=== PATIENT | female | born 1945 | race Caucasian/White ===

== ENCOUNTER 2018-08-04 11:54 | Emergency (ER) | payer BC, OTHER ==
--- OUTSIDE RECORDS SUMMARY | 2018-08-04 11:57 | XMS REPORT | Clinical Summary ---
:1945 Author Organization [facility] Address [address] [place] [address] Care Team Providers Name Role Phone Nael Williamson MD Primary Care Provider Allergies Active Allergy Reactions Severity Noted Date Comments Codeine Itching Low 08/10/2017 Propoxyphene Napsylate 08/01/2017 Medications Medication Sig Dispensed Refills Start Date End Date Status atorvastatin (LIPITOR) 0 06/07/2017 Active 10 MG tablet amitriptyline (ELAVIL) 100 mg 0 07/08/2017 Active 50 MG tablet nightly. ONETOUCH ULTRA TEST 0 05/24/2017 Active strip test strips colchicine 0.6 mg tablet 0 06/22/2017 Active hydroxychloroquine Take 200 mg 0 07/27/2017 Active (PLAQUENIL) 200 mg by mouth 2 tablet (two) times a day. SYNTHROID 50 mcg tablet 0 06/19/2017 Active VICTOZA 3-KJ 0.6 mg/0.1 0 05/22/2017 Active mL (18 mg/3 mL) pen injector losartan (COZAAR) 50 MG 0 06/19/2017 Active tablet metFORMIN XR 0 06/19/2017 Active (GLUCOPHAGE-XR) 500 mg 24 hr tablet BD ULTRA-FINE VERN PEN 0 05/23/2017 Active NEEDLES 32 gauge x 5/32" needle valACYclovir (VALTREX) 0 06/02/2017 Active 1000 MG tablet aspirin (ECOTRIN) 81 MG Take 81 mg 0 Active enteric coated tablet by mouth daily. MULTIVIT-MINERALS/FERROU Take by 0 Active S FUM (MULTI VITAMIN mouth. ORAL) LACTOBACILLUS Take by 0 Active ACIDOPHILUS (PROBIOTIC mouth. ORAL) clopidogrel (PLAVIX) 75 Take 1 90 tablet 3 03/06/2018 Active mg tablet tablet (75 9 mg total) by mouth daily. metoprolol tartrate Take 1 90 tablet 0 07/18/2018 Active (LOPRESSOR) 50 mg tablet tablet (50 mg total) by mouth 2 (two) times a day. metoprolol tartrate Take 50 mg 0 Discontinued (LOPRESSOR) 50 mg tablet by mouth 2 9 (two) times a day. 1/2 TAB TWICE DAILY clopidogrel (PLAVIX) 75 Take 1 30 tablet 11 08/01/2017 Discontinued mg tablet tablet (75 8 mg total) by mouth daily. clopidogrel (PLAVIX) 75 Take 1 90 tablet 3 08/01/2017 Discontinued mg tablet tablet (75 8 mg total) by mouth daily. clopidogrel (PLAVIX) 75 Take 1 90 tablet 3 10/31/2017 Discontinued mg tablet tablet (75 8 mg total) by mouth daily. clopidogrel (PLAVIX) 75 Take 1 90 tablet 3 11/28/2017 Discontinued mg tablet tablet (75 8 mg total) by mouth daily. metoprolol tartrate Take 50 mg 0 01/14/2017 Discontinued (LOPRESSOR) 50 mg tablet by mouth 2 9 (two) times a day. 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 Overview: Added automatically from request for surgery [id number] CAD in soboba artery 08/01/2017 Essential hypertension 08/01/2017 Stented coronary artery 08/01/2017 Encounters Date Type Specialty Care Team Description 07/18/2018 Telephone Cardiology Luis Gaytan MA Hypertension 07/18/2018 Orders Only Cardiology Luis Gaytan MA 03/06/2018 Office Visit Cardiology Paxton Meneses Stented coronary artery ( Primary Dx); MD Simone Coronary artery disease involving soboba coronary artery of soboba heart without angina pectoris 12/19/2017 Office Visit Orthopedic Surgery Ronak Barrios Other specified rheumatoid arthritis, right wrist (Primary Dx); Diogo ULRICH MD 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 12/18/2017 Abstract Orthopedic Surgery Ronak Barrios III, MD 11/28/2017 Refill Cardiology Vineet, Med Refill CookieRACHEL 10/31/2017 Refill Cardiology Vineet, Med Refill CookieRACHEL 08/29/2017 Office Visit Cardiology Paxton Meneses CAD in soboba artery ( Primary Dx); MD Simone Stented coronary artery 08/10/2017 Surgery Procedural Paxton Meneses Cv pci [[id number] Cardiology MD Simone (CPT)] 08/10/2017 - Hospital Encounter Cardiology Paxton Meneses Coronary artery disease involving soboba coronary artery of soboba heart without angina pectoris ; 08/11/2017 MD Simone Essential hypertension; Stented coronary artery 08/07/2017 Orders Only Cardiology Luis Gaytan MA Coronary artery disease involving soboba coronary artery of soboba heart without angina pectoris ( Primary Dx); Essential hypertension; Stented coronary artery after 08/03/2017 Family History Medical History Relation Name Comments Hearing loss Brother Leukemia Father COPD Mother Stroke Mother Hyperlipidemia Sister Hypertension Sister Stroke Sister Relation Name Status Comments Brother Father Mother Sister Alive Social History Tobacco Use Types Packs/Day Years Used Date Never Smoker Smokeless Tobacco: Never Used Alcohol Use Drinks/Week oz/Week Comments No Sex Assigned at Date Recorded Not on file Job Start Date Occupation Industry Not on file Not on file Not on file Travel History Travel Start Travel End No recent travel history available. Last Filed Vital Signs Vital Sign Reading Time Taken Blood Pressure 130/58 03/06/2018 9:56 AM CDT Pulse 87 03/06/2018 9:56 AM CDT Temperature 35.9 C (96.7 F) 08/11/2017 7:25 AM [employer] Respiratory Rate 20 08/11/2017 7:25 AM [employer]OP[employer]IST Oxygen Saturation 100% 08/11/2017 2:57 PM [employer]IST Inhaled Oxygen Concentration - - Weight 79.8 kg (176 lb) 03/06/2018 9:56 AM CDT Height 165.1 cm (5' 5") 03/06/2018 9:56 AM CDT Body Mass Index 29.29 03/06/2018 9:56 AM CDT Plan of Treatment Date Type Specialty Care Team Description 03/05/2019 Office Visit Cardiology Paxton Meneses MD [address] [facility] [address] [place] [id number] Health Maintenance Due Date Last Done Comments BREAST CANCER SCREENING 1995 COLON CANCER SCREENING 1995 SHINGLES VACCINES (1 of 2) 1995 PNEUMOCOCCAL POLYSACCHARIDE VACCINE AGE 65 AND OVER 2010 INFLUENZA VACCINE 01/24/2018 PNEUMOCOCCAL-13 Completed 01/14/2017 Implants Implanted Type Area Core Finisher Device Shelf Model / Identifier Expiration Serial / Date Lot Stent Coronary Syst Synergy (Mr) 3.50mm X 12mm - [id number] Coronary N/A: BSC 04/21/2018 [id number] / Implanted: 08/10/2017 (Quantity not on file) Stents N/A INTERVENTIONAL / CARDIOLOGY [id number] Procedures Procedure Name Priority Date/Time Associated Comments Diagnosis XR WRIST 3VW BILATERAL Routine 12/19/2017 9:27 Pain in both wrists Results for this AM CDT procedure are in the results section. POC GLUCOSE Routine 08/11/2017 7:26 Results for this AM [employer]IST procedure are in the results section. ZZESTIMATED GFR Routine 08/11/2017 4:40 Results for this AM [employer]IST procedure are in the results section. LIPID PANEL Routine 08/11/2017 4:40 Results for this AM [employer]IST procedure are in the results section. HC COMPLETE BLD COUNT Routine 08/11/2017 4:40 Results for this W/AUTO DIFF AM [employer] procedure are in the results section. BASIC METABOLIC PANEL Routine 08/11/2017 4:40 Results for this AM [employer] procedure are in the results section. POC GLUCOSE Routine 08/10/2017 4:22 Results for this PM [employer] procedure are in the results section. POC GLUCOSE Routine 08/10/2017 12:25 Results for this PM [employer]IST procedure are in the results section. ECG 12-LEAD STAT 08/10/2017 10:37 Results for this AM [employer]IST procedure are in the results section. POC GLUCOSE Routine 08/10/2017 9:09 Results for this AM [employer]IST procedure are in the results section. CV PCI PERCUTANEOUS Routine 08/10/2017 8:43 Essential Results for this CARDIAC ANGIOPLASTY AM [employer] hypertension procedure are in Stented coronary the results artery section. Coronary artery disease involving soboba coronary artery of soboba heart without angina pectoris POC ACT Routine 08/10/2017 8:13 Results for this AM [employer]IST procedure are in the results section. ZZESTIMATED GFR Routine 08/10/2017 6:15 Results for this AM [employer]OP[employer] SPECIALIST procedure are in the results section. BASIC METABOLIC PANEL Routine 08/10/2017 6:15 Results for this AM [employer] SPECIALIST procedure are in the results section. POC GLUCOSE Routine 08/10/2017 6:14 Results for this AM [employer] procedure are in the results section. PT AND PTT Routine 08/07/2017 4:25 Coronary artery Results for this PM [employer]IST disease involving procedure are in soboba coronary the results artery of soboba section. heart without angina pectoris Essential hypertension Stented coronary artery COMPREHENSIVE Routine 08/07/2017 4:25 Coronary artery Results for this METABOLIC PANEL PM [employer] disease involving procedure are in soboba coronary the results artery of soboba section. heart without angina pectoris Essential hypertension Stented coronary artery CBC WITH PLATELET AND Routine 08/07/2017 4:25 Coronary artery Results for this DIFFERENTIAL PM [employer] disease involving procedure are in soboba coronary the results artery of soboba section. heart without angina pectoris Essential hypertension Stented coronary artery after 08/03/2017 Results XR Wrist 3Vw Bilateral (12/19/2017 9:27 AM CDT) Narrative Performed At [place], lateral, and oblique views of both wrists demonstrate no acute HM RADIANT abnormalities. Degenerative changes consistent with rheumatoid arthritis including radioscaphoid and midcarpal joint space narrowing without significant osteophyte formation. Thumb MP joints are also arthritic. Soft tissue calcification at the level of the left TFCC. Performing Organization Address [facility] Phone Number [facility] [address] [place] [address] POC glucose (08/11/2017 7:26 AM U[employer] REDEVELOPMENT SPECIALIST)Only the most recent of5 resultswithin the time period is included. POC glucose 129 (H) 65 - 99 mg/dL [facility] DEPARTMENT OF PATHOLOGY AND Comment: GENOMIC MEDICINE [facility] Notified RN Meter ID: [id number] Legal Advisor: Varun Ashton Performing Organization Address City/[facility] Phone Number [facility] DEPARTMENT OF PATHOLOGY AND [address] [place] [phone] [facility] MEDICINE Estimated GFR (08/11/2017 4:40 AM URB[employer] REDEVELOPMENT SPECIALIST)Only the most recent of2 resultswithin the time period is included. GFR Non Af Amer 70 mL/min/1.73 m2 [facility] DEPARTMENT OF PATHOLOGY AND GENOMIC MEDICINE GFR Af Amer 85 mL/min/1.73 m2 [facility] DEPARTMENT OF Comment: PATHOLOGY AND GENOMIC Chronic kidney disease: <60 mL/min/1.73m2 MEDICINE Kidney failure: <15 mL/min/1.73m2 The estimated GFR is calculated from the IDMS-traceable Modification of Diet in Renal Disease Equation. The accuracy of the calculation is poor when the creatinine is normal. Calculated values >90 mL/min/1.73m2 are not reported. This equation has not been validated in children (<18 years), women, the elderly (>70 years), or ethnic groups other than Caucasians and Americans. Specimen Plasma specimen Performing Organization Address City/State/Zipcode Phone Number [facility] DEPARTMENT OF PATHOLOGY AND [address] [place] [address] GENOMIC MEDICINE CBC with platelet and differential (08/11/2017 4:40 AM URB[employer] REDEVELOPMENT SPECIALIST)Only the most recent of2 resultswithin the time period is included. WBC 4.74 4.50 - 11.00 k/uL [facility] DEPARTMENT OF PATHOLOGY AND GENOMIC MEDICINE RBC 3.72 (L) 4.20 - 5.50 m/uL [facility] DEPARTMENT OF PATHOLOGY AND GENOMIC MEDICINE HGB 11.8 (L) 12.0 - 16.0 g/dL [facility] DEPARTMENT OF PATHOLOGY AND GENOMIC MEDICINE HCT 37.4 37.0 - 47.0 % [facility] DEPARTMENT OF PATHOLOGY AND GENOMIC MEDICINE MCV 100.5 (H) 82.0 - 100.0 fL [facility] DEPARTMENT OF PATHOLOGY AND GENOMIC MEDICINE MCH 31.7 27.0 - 34.0 pg [facility] DEPARTMENT OF PATHOLOGY AND GENOMIC MEDICINE MCHC 31.6 31.0 - 37.0 g/dL [facility] DEPARTMENT OF PATHOLOGY AND GENOMIC MEDICINE RDW - SD 46.3 37.0 - 55.0 fL [facility] DEPARTMENT OF PATHOLOGY AND GENOMIC MEDICINE MPV 9.4 8.8 - 13.2 fL [facility] DEPARTMENT OF PATHOLOGY AND GENOMIC MEDICINE Platelet count 186 150 - 400 k/uL [facility] DEPARTMENT OF PATHOLOGY AND GENOMIC MEDICINE Nucleated RBC 0.00 /100 WBC [facility] DEPARTMENT OF PATHOLOGY AND GENOMIC MEDICINE Neutrophils 41.2 39.0 - 69.0 % [facility] DEPARTMENT OF PATHOLOGY AND GENOMIC MEDICINE Lymphocytes 45.8 (H) 25.0 - 45.0 % [facility] DEPARTMENT OF PATHOLOGY AND GENOMIC MEDICINE Monocytes 10.3 (H) 0.0 - 10.0 % [facility] DEPARTMENT OF PATHOLOGY AND GENOMIC MEDICINE Eosinophils 1.7 0.0 - 5.0 % [facility] DEPARTMENT OF PATHOLOGY AND GENOMIC MEDICINE Basophils 0.8 0.0 - 1.0 % [facility] DEPARTMENT OF PATHOLOGY AND GENOMIC MEDICINE Immature granulocytes 0.2Comment: 0.0 - 1.0 % [facility] DEPARTMENT OF "Immature PATHOLOGY AND GENOMIC granulocytes" MEDICINE (promyelocytes, myelocytes, metamyelocytes) Specimen Blood Performing Organization Address [facility] Phone Number [facility] DEPARTMENT OF PATHOLOGY AND [address] [place] [address] GENOMIC MEDICINE Lipid panel (08/11/2017 4:40 AM [employer]RB[employer] REDEVELOPMENT SPECIALIST) Cholesterol 127 <200 mg/dL [facility] DEPARTMENT OF PATHOLOGY AND GENOMIC MEDICINE Triglycerides 143 <150 mg/dL [facility] DEPARTMENT OF PATHOLOGY AND GENOMIC MEDICINE HDL cholesterol 51 >40 mg/dL [facility] DEPARTMENT OF PATHOLOGY AND GENOMIC MEDICINE LDL cholesterol 63Comment: Result <100 mg/dL [facility] DEPARTMENT obtained by direct LDL PATHOLOGY AND GENOMIC measurement MEDICINE Lipid panel interpretation SeeBelow [facility] DEPARTMENT OF Comment: PATHOLOGY AND GENOMIC Total Cholesterol (mg/dL) MEDICINE <200 Desirable 407-368Bxoadhfflb-cbyb >=240High Triglycerides (mg/dL) <150 Normal 208-188Mkvjxxraxt-hjqk 200-499High >=500Very high HDL Cholesterol (mg/dL) <40Low (male) <40Low (female) LDL Cholesterol (mg/dL) <100 Optimal 100-129Near or above optimal 641-332Ptzpoidlnp-mlpg 160-189High >=190Very high Risk Catergories that modify LDL goals. Risk CatergoriesLDL goal (mg/dL) CHD and CHD risk equivalent<100 (10-year risk >20%) Multiple (2+) risk factors <130 (10-year risk=<20%) 0-1 risk factors <160 (<10-year risk) Defining levels of lipids in metabolic syndrome Triglycerides>=150 mg/dL HDL Cholesterol Men<40 mg/dL Women<40 mg/dL Non-HDL cholesterol is a second target for therapy in persons with high triglycerides (>=200 mg/dL) Specimen Plasma specimen Performing Organization Address [facility] Phone Number [facility] DEPARTMENT OF PATHOLOGY AND [address] [place] [address] [employer] MEDICINE Basic metabolic panel (08/11/2017 4:40 AM URB[employer] REDEVELOPMENT SPECIALIST)Only the most recent of2 resultswithin the time period is included. Sodium 139 135 - 148 mEq/L [facility] DEPARTMENT OF PATHOLOGY AND GENOMIC MEDICINE Potassium 4.4 3.5 - 5.0 mEq/L [facility] DEPARTMENT OF PATHOLOGY AND GENOMIC MEDICINE Chloride 102 98 - 112 mEq/L [facility] DEPARTMENT OF PATHOLOGY AND GENOMIC MEDICINE CO2 22 (L) 24 - 31 mEq/L [facility] DEPARTMENT OF PATHOLOGY AND GENOMIC MEDICINE Anion gap 15 7 - 15 mEq/L [facility] DEPARTMENT OF PATHOLOGY Comment: AND [facility] Starting from September , anion gap calculation no longer incorporates potassium. Please note the change. BUN 13 8 - 23 mg/dL [facility] DEPARTMENT OF PATHOLOGY AND GENOMIC MEDICINE Creatinine 0.8 0.5 - 0.9 mg/dL [facility] DEPARTMENT OF PATHOLOGY AND [employer] MEDICINE Glucose 123 (H) 65 - 99 mg/dL [facility] OF PATHOLOGY AND [facility] MEDICINE Calcium 9.5 8.8 - 10.2 mg/dL [facility] DEPARTMENT OF PATHOLOGY AND GENOMIC MEDICINE Specimen Plasma specimen Performing Organization Address [facility] Phone Number [facility] OF PATHOLOGY AND [address] [place] [address] [facility] ECG 12 lead (08/10/2017 10:37 AM URB[employer] REDEVELOPMENT SPECIALIST) Ventricular rate 70 [facility] Atrial rate 70 [facility] M[facility] WA interval 160 [facility] QRSD interval 96 [facility] QT interval 420 [facility] QTC interval 453 [facility] P axis 1 54 [facility] QRS axis 1 9 [facility] T wave axis 50 [facility] EKG impression Normal sinus rhythm-Normal ECG-In automated [facility] comparison with ECG of 01-AUG-2017 13:38,-No significant change was found- Performing Organization Address [facility] Phone Number [facility] [address] [place] [address] Cv construction craft laborer procedure (08/10/2017 8:43 AM URBAN REDEVELOPMENT SPECIALIST) Narrative Performed At Findings: HM CUPID RCA with ostial severe stenosis.The RCA has diffuse mild disease. Procedure Details Attending: Dr. Meneses was present for the entire case. Interventional Fellow: Du Lopez MD EQUIPMENT/ANTICOAGULATION: Right Common Femoral Artery 6F Sheath [id number] Catheter Hi-Torque Floppy XS coronary wire Anticoagulation:Angiomax bolus and Infusion with ACT >250 sec prior to procedure PROCEDURAL DETAILS: The RCA was engaged with the [id number] Catheter and a Hi-Torque Floppy XS coronary wire was advanced into the distal PDA. The lesion in the proximal RCA was pre-dilated with a 2.0mm semi-compliant balloon at 14atm and stented with a 3.5x12mm Synergy CARLOS at 12atm.The stent was post-dilated with a 3.5mm NC balloon at 18atm.Final angiography revealed no evidence of dissection or perforation; there was WILLIAM 3 flow and 0% residual stenosis. HEMOSTASIS: Proglide Closure Device ADDITIONAL POST-PROCEDURE MEDICATIONS: Aspirin 324 mg Clopidogrel 600 mg PLAN: 1. ASA 81mg daily 2. Clopidogrel 75mg daily . 3. Cardiac medical therapy and aggressive risk factor modification. Cardiac rehabilitation. 4. Transferred in stable condition Performing Organization Address City/[facility]/Zipcode Phone Number [facility] [address] [place] [address] POC ACT (08/10/2017 8:13 AM [employer]RB[employer] REDEVELOPMENT SPECIALIST) Activated clotting time, POC 404 seconds Specimen Blood PT and PTT (08/07/2017 4:25 PM URB[employer] REDEVELOPMENT SPECIALIST) PTT 27 22 - 34 sec [facility] [place] Comment: This test has not been validated for monitoring unfractionated heparin therapy. For testing that is validated for this type of therapy, please refer to the Heparin Anti-Xa assay (test code 52207). For additional information, please refer to http://education.[employer]/faq/XAE022 (This link is being provided for informational/educational purposes only.) INR 1.0 [facility] [place] Comment: Reference Range 0.9-1.1 Moderate-intensity Warfarin Therapy 2.0-3.0 Higher-intensity Warfarin Therapy 3.0-4.0 Prothrombin time 10.9 9.0 - 11.5 sec [facility] [place] Specimen Blood Narrative Performed At FASTING:NO [facility] FASTING: NO Resulting Agency Comment Performing Organization Information: Site ID: [id number] Name: [facility] Address: [address] [place] [id number] Director: Gabriella Tang MD Performing Organization Address [facility] Cent[facility]ode Phone Number [phone] [place] [phone] Comprehensive metabolic panel (08/07/2017 4:25 PM URBAN REDEVELOPMENT SPECIALIST) Glucose 105 (H) 65 - 99 mg/dL [facility] Comment: [place] Fasting reference interval For someone without known diabetes, a glucose value between 100 and 125 mg/dL is consistent with prediabetes and should be confirmed with a follow-up test. BUN, whole blood 15 7 - 25 mg/dL [facility] Creatinine 0.85 0.60 - 0.93 [facility] Comment: mg/dL [place] For patients >49 years of age, the reference limit for Creatinine is approximately 13% higher for people identified as -Brazilian. EGFR Non-Afr. Brazilian 68 > OR=60 [facility] mL/min/1.73m2 [place] EGFR 79 > OR=60 [facility] mL/min/1.73m2 [place] BUN/creatinine ratio NOT APPLICABLE 6 - 22 (calc) [facility] [place] Sodium 142 135 - 146 mmol/L [facility] [place] Potassium 5.2 3.5 - 5.3 mmol/L [facility] [place] Chloride 107 98 - 110 mmol/L [facility] [place] CO2 24 20 - 31 mmol/L [facility] [place] Calcium 10.6 (H) 8.6 - 10.4 mg/dL [facility] [place] Protein 7.2 6.1 - 8.1 g/dL [facility] [place] Albumin, S 4.6 3.6 - 5.1 g/dL [facility] Globulin, total 2.6 1.9 - 3.7 g/dL [facility] (calc) [place] Albumin/globulin ratio 1.8 1.0 - 2.5 (calc) [facility] Total bilirubin 0.4 0.2 - 1.2 mg/dL [facility] Alkaline phosphatase 72 33 - 130 U/L [facility] AST 22 10 - 35 U/L [facility] ALT 18 6 - 29 U/L [facility] [place] Specimen Blood Narrative Performed At FASTING:NO [facility] FASTING: NO Resulting Agency Comment Performing Organization Information: Site ID: [id number] Name: [facility] Address: [address] [place] [id number] Director: Gabriella Tang MD Performing Organization Address City/State/Zipcode Phone Number [facility] [address] [place] [address] after 08/03/2017 Insurance Payer Benefit Plan / Group Subscriber ID Type Phone Address MEDICARE MEDICARE PART A AND B xxxxxxxxxx Medicare [place], [place] BCBS BCBS CHOICE PPO/F[employer]ERAL EMPL PPO xxxxxxxxxxxx PPO Advance Directives Patient has advance care planning documents on file. For more information, please contact:Anish Reid[address] [place] [address]
--- OUTSIDE RECORDS SUMMARY | 2018-08-04 12:00 | XMS REPORT | Continuity of Care Document ---
:1945 Author Organization Interface Problems Problem Status Onset Classification Date Comments Source Date Reported UNK Active 017 [facility] M06.4 - INFLAMMATORY Active [facility] POLYARTHROPATHY 016 [place] Discharge Diagnosis: Chest pain 015 5 [facility] CHEST PAIN Active 015 [facility] MORBID OBESITY Active 013 [facility] Disorder of lumbar Active Problem Data disc<sup>1, 2</sup> 011 7 migrated [facility], from [facility] [place] on 11/25/14. 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 Spinal stenosis of Active Problem Data lumbar region<sup>9, 011 7 [facility], 10</sup> from [facility] [place] on 11/25/14. Osteoarthritis of foot Active Problem Data joint<sup>5, 6</sup> 009 7 [facility] [place], from [facility] [place] on 11/25/14. Osteoarthritis of Active Problem Data knee<sup>7, 8</sup> 009 7 [facility] [place], from [facility] [place] on 11/25/14. Anxiety Active Problem 7 [place], [facility] [place] DM - Diabetes mellitus Active Problem 7 [place], [facility] [place] High blood pressure Active Problem 7 [facility], [facility] [place] Hypercholesterolemia Active Problem 7 [facility], [facility] [place] Hypothyroidism Active Problem 7 [facility], [facility] [place] Morbid obesity Active Problem 7 [facility] [place] Sleep apnea Resolved Problem 7 [facility] [place] Anxiety Active Problem 3 [facility] DM - Diabetes mellitus Active Problem 3 [facility] High blood pressure Active Problem 3 [facility] Hypercholesterolemia Active Problem 3 [facility] Hypothyroidism Active Problem 3 [facility] Morbid obesity Active Problem 3 [facility] Sleep apnea Resolved Problem 3 [facility] MORBID OBESITY Active [facility] Medications Medication Details Route Status Patient Ordering Order Source Instructions Provider Date Nitroglycerin 0.4 0.4 mg=1 tab, Active MG Sublingual SL, Q5Min, PRN 2016 [facility] Tablet Chest Pain, # [Nitrostat] 30 tab, 0 Refill(s) atorvastatin 10 20 mg=2 tab, Active mg oral tablet PO, Bedtime, # 2016 30 tab, 3 Refill(s) ticagrelor 90 mg 90 mg=1 tab, Active oral tablet PO, Q12H, # 60 2016 tab, 11 Refill(s) aspirin 81 mg 81 mg=1 tab, Active tablet, enteric PO, Daily, # 2016 coated 30 tab, 11 Refill(s) metoprolol 50 mg=1 tab, Active tartrate 50 mg PO, Q12H, # 60 2016 [facility] oral tablet tab, 3 Refill(s) Hydroxychloroquin 200 mg, 1 tab, Inactive e Sulfate 200 MG Route: PO, 2016 [facility] Oral Tablet Drug form: TAB, Daily, Dosing Weight 75, kg, Start date: 01/14/17 9:00:00 CDT, Duration: 30 day, Stop date: 02/12/17 9:00:00 CDTNotes: (Same as: Plaquenil) Hydroxychloroq uine sulfate 200 ve=232 mg hydroxychloroq uine base. If treating malaria, verify dose as salt vs. base per CDC guideline Esomeprazole 20 mg, Route: No Longer PO, Drug form: Active 2016 [facility] ECCAP, Daily, Dosing Weight 75, kg, Start date: 01/14/17 9:00:00 CDT, Duration: 30 day, Stop date: 02/12/17 9:00:00 CDT Streptococcus 0.5 mL, Route: Inactive pneumoniae IM, Drug Form: 2016 [facility] serotype 1 INJ, Daily, capsular antigen Start date: diphtheria [id number] 01/14/17 protein conjugate 9:00:00 CDT, vaccine / Duration: 1 Streptococcus doses or pneumoniae times, Stop serotype 14 date: 01/14/17 capsular antigen 9:00:00 diphtheria [id number] CDTNotes: protein conjugate Shake well vaccine / prior to use Streptococcus (Same as: pneumoniae Prevnar 13) serotype 18C capsular antigen d aspirin 81 mg 81 mg, Route: No Longer tablet, enteric PO, Drug form: Active 2016 [facility] coated ECTAB, Daily, Dosing Weight 75, kg, Start date: 01/14/17 9:00:00 CDT, Duration: 30 day, Stop date: 02/12/17 9:00:00 CDT pantoprazole 40 mg, 1 tab, Inactive Route: PO, 2016 [facility] Drug form: ECTAB, Daily, Dosing Weight 75, kg, Start date: 01/14/17 9:00:00 CDT, Duration: 30 day, Stop date: 02/12/17 9:00:00 CDTNotes: Tablet should not be chewed or crushed. (Same as: Protonix) Thyroxine 50 microgram, Inactive 1 tab, Route: 2016 [facility] PO, Drug form: TAB, Daily, Dosing Weight 75, kg, Start date: 01/14/17 6:30:00 CDT, Duration: 30 day, Stop date: 02/12/17 6:30:00 CDTNotes: Take 1 hour before or 2 hours after meal; Enteral feeds may interefere with the absorption of this medication.(Sa me as:Levothroid, Synthroid) Amitriptyline 100 mg, 2 tab, No Longer Route: PO, Active 2016 [facility] Drug form: TAB, Bedtime, Dosing Weight 75, kg, Start date: 01/13/17 21:00:00 CDT, Duration: 30 day, Stop date: 02/11/17 21:00:00 CDTNotes: (Same as: Elavil) atorvastatin 10 mg, Route: Inactive PO, Drug form: 2016 [facility] TAB, Bedtime, Dosing Weight 75, kg, Start date: 01/13/17 21:00:00 CDT, Duration: 30 day, Stop date: 02/11/17 21:00:00 CDT metoprolol 50 mg, 1 tab, No Longer tartrate Route: PO, Active 2016 [facility] Drug form: TAB, Q12H, Dosing Weight 75, kg, Start date: 01/13/17 21:00:00 CDT, Duration: 30 day, Stop date: 02/12/17 9:00:00 CDTNotes: (Same as: Lopressor) Ticagrelor 90 mg, 1 tab, No Longer Route: PO, Active 2016 [facility] Drug form: TAB, Q12H, Dosing Weight 75, kg, Start date: 01/13/17 21:00:00 CDT, Duration: 30 day, Stop date: 02/12/17 9:00:00 CDTNotes: (Same as: Brilinta) 3 ML liraglutide 1.8 mg, SUB-Q, Active 6 MG/ML Prefilled Daily, # 9 mL, 2016 Syringe [Victoza] 1 Refill(s) metoprolol 50 mg, Daily, No Longer tartrate 0 Refill(s) Active 2016 [facility] amitriptyline 50 100 mg=2 tab, Active mg oral tablet PO, Bedtime, # 2016 [facility] 30 tab, 0 Refill(s) have RPh verify & have RPh No Longer bar-code pt own verify & Active 2016 [facility] Amitriptyline-Per bar-code pt phenazine own Amitriptyline- Perphenazine, reminder, Drug form: MISC, Route: MISC, QSHIFT, 01/13/17 16:00:00 CDT, Duration: 30 day, Stop date: 02/12/17 8:00:00 CDT tramadol 50 mg, 1 tab, No Longer hydrochloride 50 Route: PO, Active 2016 [facility] Oral Tablet Drug form: TAB, Q4H, Dosing Weight 75, kg, PRN Pain Score 1-3, Priority: NOW, Start date: 01/13/17 14:46:00 CDT, Duration: 30 day, Stop date: 02/12/17 14:45:00 CDTNotes: Not to exceed 400mg/day. (Same As: Ultram) aspirin 81 mg 81 mg, 1 tab, No Longer tablet, enteric Route: PO, Active 2016 [facility] coated Drug form: ECTAB, Daily, Start date: 01/13/17 13:24:00 CDT, Duration: 30 day, Stop date: 02/12/17 9:00:00 CDTNotes: Do not crush or chew. (Same As: Ecotrin) Amitriptyline 1 tab, Route: Inactive Hydrochloride 50 PO, Drug Form: 2016 [facility] MG / Perphenazine TAB, Dosing 4 MG Oral Tablet Weight 75, kg, TID, Start date: 01/13/17 13:00:00 CDT, Duration: 30 day, Stop date: 02/12/17 9:00:00 CDT Aspirin 325 MG 325 mg, Route: Inactive Oral Tablet PO, Drug form: 2016 [facility] CHEWTAB, ONCE, Dosing Weight 75, kg, Start date: 01/13/17 11:13:00 CDT, Stop date: 01/13/17 11:13:00 CDT Ticagrelor 180 mg, 2 tab, Inactive Route: PO, 2016 [facility] Drug form: TAB, ONCE, Dosing Weight 75, kg, Priority: NOW, Start date: 01/13/17 11:13:00 CDT, Stop date: 01/13/17 11:13:00 CDTNotes: (Same as: Brilinta) Nitroglycerin 0.4 mg, 1 tab, No Longer Route: SL, Active 2016 [facility] Drug form: TAB, Q5Min, Dosing Weight 75, kg, PRN Chest Pain, Start date: 01/13/17 11:13:00 CDT, Duration: 3 doses or times, Stop date: Limited # of timesNotes: (Same as:Nitroquick, Nitrostat) "Do Not Crush" Sublingual tablet Diphenhydramine 25 mg, 1 tab, No Longer Route: PO, Active 2016 [facility] Drug form: TAB, Bedtime, Dosing Weight 75, kg, PRN Insomnia, Start date: 01/13/17 11:13:00 CDT, Duration: 30 day, Stop date: 02/12/17 11:12:00 CDT Ondansetron 4 mg, 1 tab, No Longer Route: PO, Active 2016 [facility] Drug form: TAB, Q8H, Dosing Weight 75, kg, PRN Nausea & Vomiting, Start date: 01/13/17 11:13:00 CDT, Duration: 30 day, Stop date: 02/12/17 11:12:00 CDTNotes: (Same as: Zofran) Temazepam 15 mg, 1 cap, No Longer Route: PO, Active 2016 [facility] Drug form: CAP, Bedtime, Dosing Weight 75, kg, PRN Insomnia, Start date: 01/13/17 11:13:00 CDT, Duration: 30 day, Stop date: 02/12/17 11:12:00 CDTNotes: (Same As: Restoril) Sodium Chloride 750 mL, Rate: Inactive 0.154 MEQ/ML 75 ml/hr, 2016 [facility] Injectable Infuse over: Solution 10 hr, Route: IV, Dosing Weight 75 kg, Total Volume: 750, Start date: 01/13/17 11:13:00 CDT, Duration: 10 hr, Stop date: 01/13/17 21:12:00 CDT atorvastatin 10 10 mg=1 tab, No Longer mg oral tablet PO, Bedtime, # Active 2017 [facility] 30 tab, 0 Refill(s) Metformin 500 mg=1 tab, Active hydrochloride 500 PO, Daily, 2016 [facility] Oral Tablet take with a meal, # 30 tab, 1 Refill(s) Metformin PO, 0 Inactive Refill(s) 2016 metoprolol 50 mg=1 tab, Inactive tartrate 50 mg PO, BID, # 60 2016 [facility] oral tablet tab, 0 Refill(s) Hydroxychloroquin 200 mg=1 tab, Active e Sulfate 200 MG PO, Daily, 0 2016 [facility] Oral Tablet Refill(s) Nitroglycerin 0.4 0.4 mg=1 tab, Active MG Sublingual SL, Q5Min, PRN 2014 [facility] Tablet Chest Pain, # [Nitrostat] 30 tab, 0 Refill(s) Saline Flush 0.9% 10 mL, Route: No Longer IVP, Drug Active 2014 [facility] Form: INJ, Dosing Weight 79.545, kg, PRN, PRN Line Flush, Start date: 02/23/15 16:26:00, Duration: 30 day, Stop date: 03/25/15 16:25:00Notes: (Same as: BD Posiflush) Lortab 500 mg-7.5 15 mL, PO, PO Active [place] mg/15 mL oral Q6H, 200 mL, 2012 [facility] elixir Substitution [facility] Allowed, Maintenance, LIQ amitriptyline-per 1 tab, PO, PO Active phenazine 50 mg-4 TID, 90 tab, 2012 [facility] oral tablet Substitution [facility] Allowed, Maintenance, TAB Lovenox 40 mg, 0.4 mL, SUB-Q No Longer [place] Route: SUB-Q, Active 2012 [facility] Drug form: City INJ, [id number], Start date: 02/06/13 12:00:00, Duration: 30 day, Stop date: 03/08/13 0:00:00 Tylenol 650 mg, 20.3 PO No Longer [place] mL, Route: PO, Active 2012 [facility] Drug form: City LIQ, Q4H, PRN Pain Score 1-3, Start date: 02/06/13 11:34:00, Duration: 30 day, Stop date: 03/08/13 11:33:00 heparin 5,000 unit, 1 SUB-Q No Longer [place] mL, Route: Active 2012 [facility] SUB-Q, Drug [facility] form: INJ, ONCE, Start date: 02/06/13 3:00:00, Stop date: 02/06/13 3:00:00 Reglan 10 mg, 2 mL, IV No Longer [place] Route: IV, Active 2012 [facility] Drug form: City INJ, Q8H, Start date: 02/06/13 0:00:00, Duration: 30 day, Stop date: 03/07/13 16:00:00 cefazolin 2 gm, 100 mL, IVPB No Longer [place] Route: IVPB, [facility] 2012 [facility] Drug form: City INJ, [id number], Start date: 02/05/13 21:00:00, Duration: 3 doses or times, Stop date: 02/06/13 13:00:00 Pepcid 20 mg, 2 mL, IVP No Longer [place] Route: IVP, [facility] 2012 [facility] Drug form: [facility] INJ, Q12H, Start date: 02/05/13 21:00:00, Duration: 30 day, Stop date: 03/07/13 9:00:00 ketorolac 30 30 mg, 1 mL, IV No Longer [place] mg/mL injectable Route: IV, [facility] 2012 [facility] solution Drug form: [facility] INJ, Q8H, Start date: 02/05/13 19:00:00, Duration: 4 doses or times, Stop date: 02/06/13 19:00:00 insulin regular 5 unit, 0.05 SUB-Q No Longer [place] 100 units/mL mL, Route: [address] human recombinant SUB-Q, Drug City form: SOLN, TID-Before Meals, PRN Blood Glucose Results, Start date: 02/05/13 17:19:00, Duration: 30 day, Stop date: 03/07/13 17:18:00 Dextrose 50% in 25 mL, Route: IVP No Longer [place] Water IV IVP, Start [address] date: 02/05/13 [facility] 17:19:00, Duration: 30 day, Stop date: 03/07/13 17:18:00, PRN Blood Glucose Results Tylenol 650 mg, 1 NE No Longer [place] supp, Route: [facility] 2012 [facility] NE, Drug form: City SUPP, Q4H, PRN Temperature >100.5, Start date: 02/05/13 17:16:00, Duration: 30 day, Stop date: 03/07/13 17:15:00 Phenergan 25 mg, 1 mL, IM No Longer [place] Route: IM, [address] Drug form: [facility] INJ, Q4H, PRN Nausea, Start date: 02/05/13 17:16:00, Duration: 30 day, Stop date: 03/07/13 17:15:00 Vasotec 1.25 mg, 1 mL, IV No Longer [place] Route: IV, [address] Drug form: [place] INJ, Q6H, PRN Elevated BP, Start date: 02/05/13 17:15:00, Duration: 30 day, Stop date: 03/07/13 17:14:00 Lactated Ringers 1,000 mL, IV No Longer [place] Injection IV Rate: [address] 1,000 mL ml/hr, Infuse [facility] over: 12.5 hr, Route: IV, Dosing Weight 100 kg, Total Volume: 1,000, Start date: 02/05/13 17:12:00, Stop date: 03/07/13 17:11:00 Phenergan + 25 mg, 1 mL, IVPB No Longer [place] Sodium Chloride Route: IVPB, [address] 0.9% IV 50 mL Q4H, PRN [facility] Nausea & Vomiting, Start date: 02/05/13 15:20:00, Duration: 30 day, Stop date: 03/07/13 15:19:00 Zofran 4 mg, 2 mL, IVP No Longer [place] Route: IVP, [address] Drug form: City INJ, Q8H, PRN Nausea & Vomiting, Start date: 02/05/13 15:20:00, Duration: 30 day, Stop date: 03/07/13 15:19:00 Benadryl 12.5 mg, 0.25 IVP No Longer [place] mL, Route: [address] IVP, Drug [facility] form: INJ, Q6H, PRN Itching, Start date: 02/05/13 15:20:00, Duration: 30 day, Stop date: 03/07/13 15:19:00 naloxone 0.2 mg, 0.5 IVP No Longer [place] mL, Route: [address] IVP, Drug [facility] form: INJ, Q5Min, PRN Narcotic Reversal, Start date: 02/05/13 15:19:00, Duration: 30 day, Stop date: 03/07/13 15:18:00 morphine Sulfate IV, Start IV No Longer [place] 30 mg date: 02/05/[address] 15:19:00, [facility] Duration: 30, 30 ml, 100 Peridex 0.12% 15 ml, Route: S&SPIT No Longer [place] topical liquid S&SPIT, ONCE, [address] Drug form: [facility] LIQ, Start date: 02/05/13 11:30:00, Stop date: 02/05/13 11:30:00 Sodium Chloride 1,000 mL, IV No Longer Jazmín 0.9% IV 1,000 mL Rate: [address] ml/hr, Infuse [facility] over: 20 hr, Route: IV, Dosing Weight 100 kg, Total Volume: 1,000, Start date: 02/05/13 11:21:00, Duration: 30 day, Stop date: 03/07/13 11:20:00 morphine Sulfate 2 mg, 0.2 mL, IVP No Longer [place] Route: IVP, [address] Drug form: [facility] INJ, Q5Min, Dosing Weight 100, kg, PRN Pain, Start date: 02/05/13 11:21:00, Duration: 5 doses or times, Stop date: Limited # of times, 2mg IVP q5min PRN pain score 4-6, duration: 5 doses or times, 4mg q5min PRN bennie... naloxone 0.04 mg, 0.1 IVP No Longer [place] mL, Route: [address] IVP, Drug [facility] form: INJ, Q2MIN, Dosing Weight 100, kg, PRN Narcotic Reversal, Start date: 02/05/13 11:21:00, Duration: 8 doses or times, Stop date: Limited # of times flumazenil 0.2 mg, 2 mL, IVP No Longer [place] Route: IVP, [address] Drug form: [facility] INJ, PRN, Dosing Weight 100, kg, PRN Benzodiazepine Reversal, Initial dose, Start date: 02/05/13 11:21:00, Duration: 30 day, Stop date: 03/07/13 11:20:00 hydromorphone 0.5 mg, 0.25 IVP No Longer Jazmín mL, Route: [address] IVP, Drug [facility] form: INJ, Q5Min, Dosing Weight 100, kg, PRN Pain Score 7-10, Start date: 02/05/13 11:21:00, Duration: 5 doses or times, Stop date: Limited # of times ondansetron 4 mg, 2 mL, IVP No Longer [place] Route: IVP, Active 2012 [facility] Drug form: City INJ, ONCE, Dosing Weight 100, kg, PRN Nausea & Vomiting, Start date: 02/05/13 11:21:00 cefazolin 2 gm, 100 mL, IVPB No Longer [place] Route: IVPB, Active 2012 [facility] Drug form: City INJ, ONCALL, Start date: 02/04/13 22:00:00, Duration: 30 day, Stop date: 03/06/13 21:59:00 naproxen 375 mg 375 mg, 1 tab, PO No Longer oral enteric PO, BID, Active 2012 [facility] delayed-release Allowed tablet gabapentin 800 mg 800 mg, 1 tab, PO Active oral tablet PO, 2012 [facility] Allowed glimepiride 4 mg 4 mg, 1 tab, PO No Longer oral tablet PO, Daily, Active 2012 [facility] Allowed Valtrex 1 gm, PO, PO Active Daily, 2012 [facility] Allowed Toprol-XL 50 mg 25 mg, PO, PO No Longer oral tablet, Daily, Active 2012 [facility] extended release [facility] Allowed Cozaar 25 mg oral 25 mg, 1 tab, PO No Longer tablet PO, Daily, 30 Active 2012 [facility] tab, [facility] Substitution Allowed, TAB Allergies, Adverse Reactions, Alerts Substance Category Reaction Severity Reaction Status Date Comments Source type Reported Demerol HCl Assertion Drug Active allergy [facility] HYDROcodone Assertion itching Drug Active allergy [facility] Immunizations Immunization Date Site Status Last Updated Comments Source Given pneumococcal Left completed [facility] 13-valent 7 Deltoid vaccine Results Order Name Results Value Reference Date Interpretation Comments Source Range Ext Lower Ext Lower Patient Name: TIFF HARDY 01/14 - non non vascular /2016 - [facility] vascular US : 1945; Age: 71 years Female MR: [id number] Read by: Christine Mcgovern MD Dictated Date/time: 01/14/17 12:51 Study: Ext Lower non vascular US 01/14/2017 10:05 AM CDT Electronically Signed by: Christine Mcgovern MD 01/14/17 12 :53 FINAL REPORT CLINICAL INDICATION: - Recent catheterization, right groin pain, right FRAME NAILER pseudoaneurysm. COMPARISON: None TECHNIQUE: Limited sonographic evaluation of the right groin was performed. FINDINGS: The right common femoral artery and right common femoral vein demonstrate normal flow waveforms. No evidence of a pseudoaneurysm or AV fistula. Small hypoechoic collection (2.9 x 1 cm) anterior to the right FRAME NAILER. IMPRESSION: Small right inguinal hematoma. No pseudoaneurysm. SL: [id number] CHEM PANEL eGFR 77 01/13 Result Comment: The eGFR is calculated using the CKD-EPI formula. In most young, healthy individuals the eGFR will be >90 mL/ min/1.73m2. The eGFR declines with age. An eGFR of 60-89 may be normal in mL/min/1.7 some populations, particularly the elderly, for whom the CKD-EPI formula has not been extensively validated. Use of the eGFR is not recommended in the following populations: [address] Individuals with unstable creatinine concentrations, including patients and those with serious co-morbid conditions. Patients with extremes in muscle mass or diet. The data above are obtained from the National Kidney Disease Education Program (NKDEP) which additionally recommends that when the eGFR is used in patients with extremes of body mass index for purposes of drug dosing, the eGFR should be multiplied by the estimated BMI. CHEM PANEL Creatinine 0.78 mg/dL 0.50 - 01/13 Lvl 1.40 /2017 [facility] HEMATOLOGY Hgb 12.1 g/dL 12.0 - 01/13 16.0 /2017 [facility] Chest 2 Chest 2 Exam: Chest X-ray 2 views : 02/22 - [facility] views DX views DX /2016 - [place] CLINICAL HISTORY: M06.4 Inflammatory polyarthropathy. Read by: Tawnya Gutierrez MD Dictated Date/time: 02/23/16 11:36 Electronically Signed by: Tawnya Gutierrez MD 02/23/16 11:37 FINAL REPORT Comparison: February 23, 2015. Findings: PA and lateral views of the chest are obtained. The heart size is normal. The hilar and mediastinal structures are normal. The lungs are clear without consolidation or effusion. No acute bony abnormality. Pulmonary vascularity is normal. Impression: No active disease . Wrist 2 Wrist 2 Bilateral wrist 4 views, 02/23/201602/22 - [facility] OPID views /2015 - [place] bilateral bilateral DX DX HISTORY: Inflammatory polyarthropathy. Read by: Levi Fairbanks MD Dictated Date/time: 02/23/16 11:47 Electronically Signed by: Levi Fairbanks MD 02/23/16 12:01 FINAL REPORT AP and lateral views of the right wrist demonstrate mild widening of the scapholunate joint with radioscaphoid and lunatocapitate arthrosis. Chondrocalcinosis within trying fibrocartilage noted. Degener ative changes involving the 1st carpometacarpal joint and 1st MCP joint. AP and lateral views of the left wrist demonstrate more significant widening of the scapholunate joint with more severe radioscaphoid arthrosis with remodeling and bony hypertrophy noted. There is more sclerosis and erosive change along the distal margin of the lunate with proximal migration of the capitate. Linear chondrocalcinosis within the triangular cartilage with several calcium deposits or intr a-articular loose bodies in the in the lateral joint compartment. Mild left 1st carpometacarpal joint and left 1st MCP arthrosis. No evidence of fracture or bone destruction. 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 CARDIAC CK MB Index 1.4 0.0 - 2.5 02/23 ENZYMES /2014 [facility] CARDIAC Total CK 156 unit/L 12 - 191 02/23 ENZYMES /2014 [facility] CARDIAC CK MB 2.2 ng/mL 0.5 - 3.6 02/23 ENZYMES /2014 [facility] CARDIAC Troponin-I null 0.00 - 02/23 ENZYMES 0.40 /2015 [facility] CHEM PANEL eGFR 80 02/23 Result Comment: The eGFR is calculated using the CKD-EPI formula. In most young, healthy individuals the eGFR will be >90 mL/ min/1.73m2. The eGFR declines with age. An eGFR of 60-89 may be normal in mL/min/1.7 /2014 some populations, particularly the elderly, for whom the CKD-EPI formula has not been extensively validated. Use of the eGFR is not recommended in the following populations: [place] 3m2 Individuals with unstable creatinine concentrations, including patients and those with serious co-morbid conditions. Patients with extremes in muscle mass or diet. The data above are obtained from the National Kidney Disease Education Program (NKDEP) which additionally recommends that when the eGFR is used in patients with extremes of body mass index for purposes of drug dosing, the eGFR should be multiplied by the estimated BMI. CHEM PANEL CO2 25 meq/L 24 - 32 02/23 [facility] CHEM PANEL Chloride Lvl 108 meq/L 95 - 109 02/23 [facility] CHEM PANEL Potassium 3.8 meq/L 3.5 - 5.1 02/23 [facility] CHEM PANEL Glucose Lvl 102 mg/dL 70 - 99 02/23 [facility] CHEM PANEL B/C Ratio 19 6 - 25 02/23 [facility] CHEM PANEL Sodium Lvl 139 meq/L 135 - 145 02/23 [facility] CHEM PANEL Creatinine 0.8 mg/dL 0.5 - 1.4 02/23 [facility] CHEM PANEL BUN 15 mg/dL 7 - 22 02/23 [facility] CHEM PANEL Bili Total 0.3 mg/dL 0.2 - 1.3 02/23 [facility] CHEM PANEL Calcium Lvl 9.6 mg/dL 8.5 - 10.5 02/23 [facility] CHEM PANEL Total 7.3 g/dL 6.4 - 8.4 02/23 [facility] CHEM PANEL AGAP 9.8 meq/L 10.0 - 02/23 20.0 /2014 [facility] CHEM PANEL AST 28 unit/L 0 - 37 02/23 [facility] CHEM PANEL A/G Ratio 1.3 0.7 - 1.6 02/23 [facility] CHEM PANEL Globulin 3.2 g/dL 2.0 - 4.0 02/23 [facility] CHEM PANEL Alk Phos 83 unit/L 39 - 136 02/23 [facility] CHEM PANEL Albumin Lvl 4.1 g/dL 3.5 - 5.0 02/23 [facility] CHEM PANEL ALT 40 unit/L 0 - 65 02/23 [facility] HEMATOLOGY Monocytes # 0.5 K/CMM 0.0 - 0.8 02/23 [facility] HEMATOLOGY Lymphocytes 3.2 K/CMM 1.0 - 5.5 02/23 MH # /2015 [facility] HEMATOLOGY Basophils # 0.1 K/CMM 0.0 - 0.2 02/23 /2014 [facility] HEMATOLOGY Eosinophils 0.1 K/CMM 0.0 - 0.5 02/23 MH # /2014 [facility] HEMATOLOGY Segs-Bands # 2.6 K/CMM 1.5 - 8.1 02/23 /2014 [facility] HEMATOLOGY Eosinophils 1.7 % 0.0 - 4.0 02/23 MH /2014 [facility] HEMATOLOGY Lymphocytes 49.9 % 20.0 - 02/23 MH 40.0 /2014 [facility] HEMATOLOGY Basophils 0.9 % 0.0 - 1.0 02/23 MH /2014 [facility] HEMATOLOGY Monocytes 7.5 % 2.0 - 12.0 02/23 /2014 [facility] HEMATOLOGY Segs 40.0 % 45.0 - 02/23 MH 75.0 /2014 [facility] MPV 7.4 fL 7.4 - 10.4 02/23 /2014 [facility] Platelet 198 K/CMM 133 - 450 02/23 /2014 [facility] MCHC 33.5 g/dL 32.0 - 02/23 MH 36.0 /2014 [facility] RDW 13.1 % 11.5 - 02/23 MH 14.5 /2014 [facility] MCV 95.7 fL 80.0 - 02/23 MH 98.0 /2014 [facility] MCH 32.0 pg 27.0 - 02/23 MH 31.0 /2014 [facility] RBC 4.32 M/CMM 4.20 - 02/23 MH 5.40 /2014 [facility] Hgb 13.8 g/dL 12.0 - 02/23 16.0 [facility] Hct 41.3 % 36.0 - 02/23 MH 48.0 /2014 [facility] WBC 6.5 K/CMM 3.7 - 10.4 02/23 /2014 [facility] Chest Chest 1view PROCEDURE: Chest 1view 02/23 - 1view DX - REASON FOR EXAM: See Clinic Indication CLINICAL INDICATION: Chest pain Read by: Frank Munoz MD Dictated Date/time: 02/23/15 16:54 Electronically Signed by: Frank Munoz MD 02/23/15 16:54 FINAL REPORT COMPARISON: 01/23/2013. FINDINGS: No acute process. No focal consolidation, pleural effusion, or pneumothorax. Stable cardiac silhouette and mediastinum. SL: 12 BEDSIDE Comment1 Notify 02/07 NA GLUCOSE RN/MD /2012 [facility] BEDSIDE Gluc POC 110 mg/dL 70 - 99 02/07 [place] 1Interpretive GLUCOSE [facility] Data: [facility] Upper Reportable Limit: 200 mg/dL. BEDSIDE Gluc POC 132 mg/dL 70 - 99 02/07 [place] 2Interpretive GLUCOSE [place] Data: [facility] Upper Reportable Limit: 200 mg/dL. CHEMISTRY Globulin 3.0 g/dL 2.0 - 4.0 02/07 Normal [facility] CHEMISTRY A/G Ratio 1.0 0.7 - 1.6 02/07 Normal [facility] CHEMISTRY B/C Ratio 17 6 - 25 02/07 Normal [facility] CHEMISTRY AGAP 13.1 meq/L 10.0 - 02/07 Normal 20.0 [facility] CHEMISTRY Bili Total 0.5 mg/dL 0.2 - 1.3 02/07 Normal [facility] CHEMISTRY Total 6.0 g/dL 6.4 - 8.4 02/07 LOW [facility] CHEMISTRY BUN 15 mg/dL 7 - 22 02/07 Normal [facility] CHEMISTRY CO2 24 meq/L 24 - 32 02/07 Normal [facility] CHEMISTRY Albumin Lvl 3.0 g/dL 3.5 - 5.0 02/07 LOW [facility] CHEMISTRY Glucose Lvl 114 mg/dL 70 - 99 02/07 [place] 7Interpretive Data: Adult reference range values reflect the clinical guidelines of the [place] [employer]. [facility] CHEMISTRY AST 39 unit/L 0 - 37 02/07 HI [facility] CHEMISTRY eGFR 66 02/07 NA 4Result Comment: The eGFR is calculated using the CKD-EPI formula. In most young, healthy individuals the eGFR will be > 90 mL/min/1.73m2. The eGFR declines with age. An eGFR of 60-89 may be normal in mL/min/1.7 some populations, particularly the elderly, for whom the CKD-EPI formula has not been extensively validated. Use of the eGFR is not recommended in the following populations: [address] Individuals with unstable creatinine concentrations, including patients and those with serious co-morbid conditions. Patients with extremes in muscle mass or diet. The data above are obtained from the National Kidney Disease Education Program (NKDEP) which additionally recommends that when the eGFR is used in patients with extremes of body mass index for purposes of drug dosing, the eGFR should be multiplied by the estimated BMI. CHEMISTRY Creatinine 0.9 mg/dL 0.5 - 1.4 02/07 Normal MH Lvl [facility] CHEMISTRY Calcium Lvl 8.8 mg/dL 8.5 - 10.5 02/07 Normal [facility] CHEMISTRY Alk Phos 76 unit/L 39 - 136 / Normal [facility] CHEMISTRY ALT 39 unit/L 0 - 65 02/07 Normal [facility] CHEMISTRY Sodium Lvl 143 meq/L 135 - 145 02/07 Normal [facility] CHEMISTRY Chloride Lvl 111 meq/L 95 - 109 / HI /2012 [facility] CHEMISTRY Potassium 5.1 meq/L 3.5 - 5.1 02/07 Normal Lvl [facility] HEMATOLOGY Eosinophils 0.1 K/CMM 0.0 - 0.5 02/07 Normal MH # [facility] HEMATOLOGY Monocytes # 0.5 K/CMM 0.0 - 0.8 02/07 Normal [facility] HEMATOLOGY Basophils 0.1 % 0.0 - 1.0 02/07 Normal [facility] HEMATOLOGY Lymphocytes 2.0 K/CMM 1.0 - 5.5 02/07 Normal MH [facility] HEMATOLOGY Segs-Bands # 3.1 K/CMM 1.5 - 8.1 02/07 Normal [facility] HEMATOLOGY Basophils # 0.0 K/CMM 0.0 - 0.2 02/07 Normal [facility] HEMATOLOGY Monocytes 8.2 % 2.0 - 12.0 02/07 Normal [facility] HEMATOLOGY Segs 53.9 % 45.0 - 08 Normal MH 75.0 [facility] HEMATOLOGY Lymphocytes 35.3 % 20.0 - 08 Normal MH 40.0 [facility] HEMATOLOGY Eosinophils 2.5 % 0.0 - 4.0 02/07 Normal [facility] HEMATOLOGY RBC 3.26 M/CMM 4.20 - 08 LOW MH 5.40 [facility] HEMATOLOGY WBC 5.7 K/CMM 3.7 - 10.4 02/07 Normal MH /2012 [facility] MCV 86.7 fL 81.0 - 02/07 Normal 99.0 /2012 [facility] MCHC 31.6 g/dL 32.0 - 02/07 LOW 36.0 /2012 [facility] RDW 16.9 % 11.5 - 02/07 HI MH 14.5 /2012 [facility] MCH 27.4 pg 27.0 - 02/07 Normal 31.0 /2012 [facility] Hct 28.3 % 36.0 - 02/07 LOW 48.0 /2012 [facility] Hgb 8.9 g/dL 12.0 - 02/07 LOW 16.0 /2012 [facility] MPV 8.1 fL 7.4 - 10.4 02/07 Normal MH /2012 [facility] Platelet 147 K/CMM 133 - 450 02/07 Normal MH /2012 [facility] BEDSIDE Gluc POC 147 mg/dL 70 - 99 02/07 [place] 3Interpretive GLUCOSE [facility] /2012 Data: [facility] Upper Reportable Limit: 200 mg/dL. BEDSIDE Comment1 Notify 02/06 NA GLUCOSE RN/MD [facility] Stomach Stomach UGI HISTORY: Abdominal fullness 02/06 - UGI (water (water /2012 - [facility] contrast) contrast) FINDINGS: Iodinated contrast was swallowed by mouth and the abdomen was evaluated under fluoroscopy. Static images were obtained for the patient's record. Read by: Grazyna Scherer Dictated Date/time: 02/06/13 11:15 Electronically Signed by: Grazyna Scherer MD 02/06/13 11:18 FINAL REPORT There normal passage of contrast from the esophagus into the gastric pouch and into the small bowel. There are no signs of extraluminal contrast leak. Contrast reached the proximal ileum after 20 minute s likely past the JJ anastomosis. There are no signs of small bowel dilation IMPRESSION: Patent gastric bypass. Contrast reached the proximal ileum at 20 minutes likely past the JJ anastomosis Fluoro time: 0.1 minutes CHEMISTRY Bili Total 0.4 mg/dL 0.2 - 1.3 02/06 Normal MH [facility] CHEMISTRY Total 5.9 g/dL 6.4 - 8.4 02/06 LOW [facility] CHEMISTRY BUN 15 mg/dL 7 - 22 02/06 Normal [facility] CHEMISTRY CO2 23 meq/L 24 - 32 02/06 LOW [facility] CHEMISTRY Albumin Lvl 3.3 g/dL 3.5 - 5.0 02/06 LOW [facility] CHEMISTRY Glucose Lvl 190 mg/dL 70 - 99 02/06 [place] 8Interpretive Data: Adult reference range values reflect the clinical guidelines of the [place] [employer]. [facility] CHEMISTRY Chloride Lvl 108 meq/L 95 - 109 02/06 Normal [facility] CHEMISTRY Potassium 5.0 meq/L 3.5 - 5.1 02/06 Normal Lvl [facility] CHEMISTRY Sodium Lvl 142 meq/L 135 - 145 02/06 Normal [facility] CHEMISTRY Alk Phos 95 unit/L 39 - 136 02/06 Normal [facility] CHEMISTRY AST 67 unit/L 0 - 37 02/06 HI [facility] CHEMISTRY ALT 74 unit/L 0 - 65 02/06 HI [facility] CHEMISTRY eGFR 52 02/06 NA 5Result Comment: The eGFR is calculated using the CKD-EPI formula. In most young, healthy individuals the eGFR will be > 90 mL/min/1.73m2. The eGFR declines with age. An eGFR of 60-89 may be normal in mL/min/1. some populations, particularly the elderly, for whom the CKD-EPI formula has not been extensively validated. Use of the eGFR is not recommended in the following populations: [address] Individuals with unstable creatinine concentrations, including patients and those with serious co-morbid conditions. Patients with extremes in muscle mass or diet. The data above are obtained from the National Kidney Disease Education Program (NKDEP) which additionally recommends that when the eGFR is used in patients with extremes of body mass index for purposes of drug dosing, the eGFR should be multiplied by the estimated BMI. CHEMISTRY Creatinine 1.1 mg/dL 0.5 - 1.4 02/06 Normal l [facility] CHEMISTRY Calcium Lvl 8.8 mg/dL 8.5 - 10.5 02/06 Normal [facility] CHEMISTRY A/G Ratio 1.3 0.7 - 1.6 02/06 Normal [facility] CHEMISTRY Globulin 2.6 g/dL 2.0 - 4.0 02/06 Normal [facility] CHEMISTRY B/C Ratio 14 6 - 25 08 Normal /2012 [facility] CHEMISTRY AGAP 16.0 meq/L 10.0 - 02/06 Normal MH 20.0 [facility] HEMATOLOGY RBC Morph Normal 02/06 Normal /2012 [facility] (02/06/2013 03:34:00) [facility] HEMATOLOGY Eosinophils 0.0 % 0.0 - 4.0 02/06 Normal [facility] HEMATOLOGY Basophils 0.1 % 0.0 - 1.0 02/06 Normal [facility] HEMATOLOGY Segs 82.7 % 45.0 - 08 HI MH 75.0 [facility] HEMATOLOGY Lymphocytes 1.1 K/CMM 1.0 - 5.5 02/06 Normal MH # [facility] HEMATOLOGY Eosinophils 0.0 K/CMM 0.0 - 0.5 02/06 Normal MH [facility] HEMATOLOGY Monocytes 6.5 % 2.0 - 12.0 02/06 Normal [facility] HEMATOLOGY Segs-Bands # 8.7 K/CMM 1.5 - 8.1 02/06 HI [facility] HEMATOLOGY Monocytes # 0.7 K/CMM 0.0 - 0.8 02/06 Normal [facility] HEMATOLOGY Basophils # 0.0 K/CMM 0.0 - 0.2 02/06 Normal [facility] HEMATOLOGY Plt Morph Normal 02/06 Normal [facility] (02/06/2013 03:34:00) [facility] HEMATOLOGY Lymphocytes 10.7 % 20.0 - 02/06 LOW MH 40.0 [facility] HEMATOLOGY MPV 8.2 fL 7.4 - 10.4 02/06 Normal [facility] HEMATOLOGY Platelet 184 K/CMM 133 - 450 02/06 Normal [facility] HEMATOLOGY MCHC 31.5 g/dL 32.0 - 02/06 LOW 36.0 [facility] HEMATOLOGY RDW 16.7 % 11.5 - 08 HI MH 14.5 [facility] HEMATOLOGY MCV 86.1 fL 81.0 - 02/06 Normal MH 99.0 [facility] HEMATOLOGY MCH 27.1 pg 27.0 - 02/06 Normal MH 31.0 [facility] HEMATOLOGY Hct 31.4 % 36.0 - 02/06 LOW MH 48.0 [facility] HEMATOLOGY Hgb 9.9 g/dL 12.0 - 02/06 LOW 16.0 [facility] HEMATOLOGY RBC 3.65 M/CMM 4.20 - 02/06 LOW MH 5.40 [facility] HEMATOLOGY WBC 10.6 K/CMM 3.7 - 10.4 02/06 HI [facility] URINALYSIS UA <=1.0 0.1 - 1.0 02/05 [facility] Urobilinogen mg/dL /2012 [facility]
*NA*< [facility] br/>(02/05 13:20:00) <sup> </sup> URINALYSIS UA Mucus Few /LPF None Seen 02/05 [facility] *NA* [facility] (02/05/2013 13:20:00) URINALYSIS UA Spec Grav 1.017 <=1.030 02/05 Normal [facility] URINALYSIS UA Turbidity Clear Clear 02/05 Normal [facility] (02/05/2013 13:20:00) [facility] URINALYSIS UA Color Yellow Yellow 02/05 [facility] *NA* [facility] (02/05/2013 13:20:00) URINALYSIS UA pH 5.0 5.0 - 8.0 02/05 Normal [facility] URINALYSIS UA Ketones Negative mg/dL Negative 02/05 [facility] *NA* [facility] (02/05/2013 13:20:00) URINALYSIS UA Protein Negative mg/dL Negative 02/05 Normal [facility] (02/05/2013 13:20:00) [facility] URINALYSIS UA Glucose Negative mg/dL Negative 02/05 [facility] *NA* [facility] (02/05/2013 13:20:00) URINALYSIS UA Bili Negative Negative 02/05 NA [facility] *NA* [facility] (02/05/2013 13:20:00) URINALYSIS UA Blood Negative Negative 02/05 Normal [facility] (02/05/2013 13:20:00) [facility] URINALYSIS UA Sq Epi Few /LPF Few 02/05 [facility] *NA* [facility] (02/05/2013 13:20:00) URINALYSIS UA Leuk Est Moderate Negative 02/05 ABN [facility] *ABN* [facility] (02/05/2013 13:20:00) URINALYSIS UA RBC 1 /HPF 0 - 2 02/05 Normal [facility] URINALYSIS UA Bacteria Occasional /HPF None Seen 02/05 NA [facility] *NA* [facility] (02/05/2013 13:20:00) URINALYSIS UA Nitrite Positive Negative 02/05 ABN [facility] *ABN* [facility] (02/05/2013 13:20:00) URINALYSIS UA WBC 8 /HPF 0 - 5 02/05 HI [facility] BLOOD BANK ABO/Rh A POS 02/05 Unknown MH RESULTS [facility] BLOOD BANK Antibody Negative 02/05 Normal RESULTS Scrn [facility] (02/05/2013 11:35:00) [facility] CHEMISTRY Vitamin D, 25 ng/mL 30 - 100 01/23 LOW 10Interpretive Data: Reference range is based on recommendations in the Endocrine 25-OH, Society Clinical Practice Guideline (J Clin Endocrinol Metab [facility] 2010;96:7739-6763) [facility] CHEMISTRY PTH Intact 61.3 pg/mL 11.1 - 01/23 Normal 79. [facility] CHEMISTRY Sodium Lvl 138 meq/L 135 - 145 01/23 Normal [facility] CHEMISTRY Glucose Lvl 176 mg/dL 70 - 99 01/23 [place] 9Interpretive Data: Adult reference range values reflect the clinical guidelines of the [place] [employer]. [facility] CHEMISTRY Potassium 4.3 meq/L 3.5 - 5.1 01/23 Normal Lv [facility] CHEMISTRY BUN 19 mg/dL 7 - 22 01/23 Normal [facility] CHEMISTRY Creatinine 1.0 mg/dL 0.5 - 1.4 01/23 Normal Lvl [facility] CHEMISTRY eGFR 58 01/23 NA 6Result Comment: The eGFR is calculated using the CKD-EPI formula. In most young, healthy individuals the eGFR will be > 90 mL/min/1.73m2. The eGFR declines with age. An eGFR of 60-89 may be normal in mL/min/1. some populations, particularly the elderly, for whom the CKD-EPI formula has not been extensively validated. Use of the eGFR is not recommended in the following populations: [address] Individuals with unstable creatinine concentrations, including patients and those with serious co-morbid conditions. Patients with extremes in muscle mass or diet. The data above are obtained from the National Kidney Disease Education Program (NKDEP) which additionally recommends that when the eGFR is used in patients with extremes of body mass index for purposes of drug dosing, the eGFR should be multiplied by the estimated BMI. HEMATOLOGY Hgb 11.4 g/dL 12.0 - 01/23 LOW MH 16.0 /2012 [facility] HEMATOLOGY Hct 34.8 % 36.0 - 01/23 LOW MH 48.0 /2012 [facility] Chest 2 Chest 2 CHEST PA AND LATERAL 01/23 - views /2012 - [facility] Clinical history: 67-year-old with cough. Read by: Marlon Maldonado Date/time: 01/23/13 12:07 Electronically Signed by: Marlon Maldonado MD 01/23/13 12:07 FINAL REPORT Comparison: None. Findings: The lungs are expanded and no infiltrate, mass or pleural effusion seen. The cardiomediastinal structures are within normal limits. IMPRESSION: There is no evidence for active cardio pulmonary disease. Vital Signs Vital Sign Value Date Comments Source Temperature Oral (F) 98.6 F 01/14/2017 [facility] Respitory Rate 18 01/14/2017 [facility] Heart Rate 59 01/14/2017 [facility] Systolic (mm Hg) 136 01/14/2017 [facility] Diastolic (mm Hg) 73 01/14/2017 [facility] Temperature Oral (F) 98.0 F 01/14/2017 [facility] Heart Rate 60 01/14/2017 [facility] Systolic (mm Hg) 150 01/14/2017 [facility] Diastolic (mm Hg) 80 01/14/2017 [facility] Respitory Rate 18 01/14/2017 [facility] Temperature Oral (F) 98.2 F 01/14/2017 [facility] Respitory Rate 18 01/14/2017 [facility] Heart Rate 60 01/14/2017 [facility] Systolic (mm Hg) 111 01/14/2017 [facility] Diastolic (mm Hg) 67 01/14/2017 [facility] Weight 82 01/14/2017 [facility] BMI Calculated 27.51 01/13/2017 [facility] Weight 75 01/13/2017 [facility] Height 165.1 cm 01/13/2017 [facility] Respitory Rate 18 02/23/2015 [facility] Heart Rate 64 02/23/2015 [facility] Temperature Oral (F) 98.2 F 02/23/2015 [facility] Systolic (mm Hg) 154 02/23/2015 [facility] Diastolic (mm Hg) 65 02/23/2015 [facility] Temperature Oral (F) 98.0 F 02/23/2015 [facility] Height 157.48 cm 02/23/2015 [facility] Systolic (mm Hg) 153 02/23/2015 [facility] Diastolic (mm Hg) 76 02/23/2015 [facility] Heart Rate 71 02/23/2015 [facility] Respitory Rate 18 02/23/2015 [facility] BMI Calculated 32.07 02/23/2015 [facility] Weight 79.545 02/23/2015 [facility] Diastolic (mm Hg) 54 02/07/2013 [facility] Respitory Rate 18 02/07/2013 [facility] Systolic (mm Hg) 124 02/07/2013 [facility] Temperature Oral (F) 98.1 F 02/07/2013 [facility] Heart Rate 67 02/07/2013 [facility] Diastolic (mm Hg) 51 02/07/2013 [facility] Respitory Rate 17 02/07/2013 [facility] Heart Rate 69 02/07/2013 [facility] Temperature Oral (F) 98.4 F 02/07/2013 [facility] Systolic (mm Hg) 114 02/07/2013 [facility] Systolic (mm Hg) 144 02/07/2013 [facility] Respitory Rate 18 02/07/2013 [facility] Diastolic (mm Hg) 71 02/07/2013 [facility] Temperature Oral (F) 98.2 F 02/07/2013 [facility] Heart Rate 81 02/07/2013 [facility] Weight 100 01/23/2013 [facility] Height 165.1 cm 01/23/2013 [facility] Encounters Location Location Encounter Encounter Reason Attending ADM DC Status Source Details Type Number For Provider Date Date Visit [facility] Inpatient [id number] MINO 02/05 02/07 Active [facility] ANSELMO /2012 [facility] EC [id number] Grant Cesta 02/23 02/23 [facility] Emergency /2014 [facility] Outpt Diag [id number] Edward 02/22 02/23 [facility] T[facility] /2015 [facility] [place] [facility] Bedded [id number] Nisheegregory 01/13 01/14 [facility] Outpatient Lalitha /2016 [facility] Procedures Procedure Code Date Perfomer Comments Source Gastric bypass 81954199 [place] [facility] 3 Gastric bypass [id number] [facility] [place] Gastric bypass [id number] [facility] [place] Ankle<sup>1</sup> 980170 ankle fusion [place] x3 Appendectomy [id number] [place] Carpal tunnel release [id number] [place] Cervical spinal [id number] [place] fusion section [id number] [facility] Cholecystectomy [id number] [facility] Decompression [id number] [place] laminectomy of lumbar spine H/O: hysterectomy [id number] [place] Knee replacement [id number] [place] Ankle <sup>1</sup> 1449009 1ankle fusion [facility] x3 [facility] Append[facility] [id number] [facility] Carpal tunnel release [phone] [facility] Cervical spinal [id number] [facility] section [id number] [facility] Cholecystectomy [id number] [facility] Decompression [id number] [facility] laminectomy of lumbar [place] spine H/O: hysterectomy [id number] [facility] Knee replacement [id number] [facility] Ankle<sup>1</sup> 416952 ankle fusion [facility] [place] Appendectomy [id number] [facility] [place] Carpal tunnel release [id number] [facility] [place] Cervical spinal [id number] [facility] [place] fusion [place] section [id number] [facility] [place] Cholecystectomy [id number] [facility] [place] Decompression [id number] [facility] [place] laminectomy of lumbar [place] spine H/O: hysterectomy [id number] [facility] [place] Knee replacement [id number] [facility] [place] Catheterization of [id number] [place] left heart Percutaneous [id number] [place] insertion of drug eluting stent into coronary artery using fluoroscopic guidance
--- OUTSIDE RECORDS SUMMARY | 2018-08-04 12:01 | XMS REPORT | CCD ---
:1945 Author Organization [facility] Care Team Providers Name Role Phone Maxime Briones Referring Provider Allergies, Adverse Reactions, Alerts Substance Reaction Status Demerol HCl Active HYDROcodone itching Active Problem List Condition Effective Dates Status Anxiety Active DM - Diabetes mellitus Active High blood pressure Active Hypercholesterolemia Active Hypothyroidism Active Morbid obesity Active Sleep apnea Resolved Medications Medication Instructions Start Date End Date Status cefazolin 2 gm, 100 mL, Route: 02/04/2013 02/05/2013 Completed IVPB, Drug form: INJ, ONCALL, Start date: 02/04/13 22:00:00, Duration: 30 day, Stop date: 03/06/13 21:59:00 ketorolac 30 mg/mL 30 mg, 1 mL, Route: IV, 02/05/2013 02/06/2013 Completed injectable solution Drug form: INJ, Q8H, Start date: 02/05/13 19:00:00, Duration: 4 doses or times, Stop date: 02/06/13 19:00:00 Tylenol 650 mg, 1 supp, Route: 02/05/2013 02/07/2013 Discontinued ID, Drug form: SUPP, Q4H, PRN Temperature >100.5, Start date: 02/05/13 17:16:00, Duration: 30 day, Stop date: 03/07/13 17:15:00 cefazolin 2 gm, 100 mL, Route: 02/05/2013 02/06/2013 Completed IVPB, Drug form: INJ, [id number], Start date: 02/05/13 21:00:00, Duration: 3 doses or times, Stop date: 02/06/13 13:00:00 Phenergan 25 mg, 1 mL, Route: IM, 02/05/2013 02/07/2013 Discontinued Drug form: INJ, Q4H, PRN Nausea, Start date: 02/05/13 17:16:00, Duration: 30 day, Stop date: 03/07/13 17:15:00 Tylenol 650 mg, 20.3 mL, Route: 02/06/2013 02/07/2013 Discontinued PO, Drug form: LIQ, Q4H, PRN Pain Score 1-3, Start date: 02/06/13 11:34:00, Duration: 30 day, Stop date: 03/08/13 11:33:00 naproxen 375 mg oral 375 mg, 1 tab, PO, BID, 01/23/2013 02/07/2013 Discontinued enteric coated Substitution Allowed delayed-release tablet Vasotec 1.25 mg, 1 mL, Route: IV, 02/05/2013 02/07/2013 Discontinued Drug form: INJ, Q6H, PRN Elevated BP, Start date: 02/05/13 17:15:00, Duration: 30 day, Stop date: 03/07/13 17:14:00 Lovenox 40 mg, 0.4 mL, Route: 02/06/2013 02/07/2013 Discontinued SUB-Q, Drug form: INJ, [id number], Start date: 02/06/13 12:00:00, Duration: 30 day, Stop date: 03/08/13 0:00:00 Reglan 10 mg, 2 mL, Route: IV, 02/06/2013 02/07/2013 Discontinued Drug form: INJ, Q8H, Start date: 02/06/13 0:00:00, Duration: 30 day, Stop date: 03/07/13 16:00:00 Sodium Chloride 0.9% IV 1,000 mL, Rate: 50 ml/hr, 02/05/2013 02/05/2013 Discontinued 1,000 mL Infuse over: 20 hr, Route: IV, Dosing Weight 100 kg, Total Volume: 1,000, Start date: 02/05/13 11:21:00, Duration: 30 day, Stop date: 03/07/13 11:20:00 morphine Sulfate 2 mg, 0.2 mL, Route: IVP, 02/05/2013 02/05/2013 Discontinued Drug form: INJ, Q5Min, Dosing Weight 100, kg, PRN Pain, Start date: 02/05/13 11:21:00, Duration: 5 doses or times, Stop date: Limited # of times, 2mg IVP q5min PRN pain score 4-6, duration: 5 doses or times, 4mg q5min PRN bennie... naloxone 0.04 mg, 0.1 mL, Route: 02/05/2013 02/05/2013 Discontinued IVP, Drug form: INJ, Q2MIN, Dosing Weight 100, kg, PRN Narcotic Reversal, Start date: 02/05/13 11:21:00, Duration: 8 doses or times, Stop date: Limited # of times flumazenil 0.2 mg, 2 mL, Route: IVP, 02/05/2013 02/05/2013 Discontinued Drug form: INJ, PRN, Dosing Weight 100, kg, PRN Benzodiazepine Reversal, Initial dose, Start date: 02/05/13 11:21:00, Duration: 30 day, Stop date: 03/07/13 11:20:00 hydromorphone 0.5 mg, 0.25 mL, Route: 02/05/2013 02/05/2013 Discontinued IVP, Drug form: INJ, Q5Min, Dosing Weight 100, kg, PRN Pain Score 7-10, Start date: 02/05/13 11:21:00, Duration: 5 doses or times, Stop date: Limited # of times ondansetron 4 mg, 2 mL, Route: IVP, 02/05/2013 02/05/2013 Discontinued Drug form: INJ, ONCE, Dosing Weight 100, kg, PRN Nausea & Vomiting, Start date: 02/05/13 11:21:00 insulin regular 100 5 unit, 0.05 mL, Route: 02/05/2013 02/07/2013 Discontinued units/mL human SUB-Q, Drug form: SOLN, recombinant TID-Before Meals, PRN Blood Glucose Results, Start date: 02/05/13 17:19:00, Duration: 30 day, Stop date: 03/07/13 17:18:00 insulin regular 100 4 unit, 0.04 mL, Route: 02/05/2013 02/07/2013 Discontinued units/mL human SUB-Q, Drug form: SOLN, recombinant TID-Before Meals, PRN Blood Glucose Results, Start date: 02/05/13 17:19:00, Duration: 30 day, Stop date: 03/07/13 17:18:00 insulin regular 100 2 unit, 0.02 mL, Route: 02/05/2013 02/07/2013 Discontinued units/mL human SUB-Q, Drug form: SOLN, recombinant TID-Before Meals, PRN Blood Glucose Results, Start date: 02/05/13 17:19:00, Duration: 30 day, Stop date: 03/07/13 17:18:00 insulin regular 100 3 unit, 0.03 mL, Route: 02/05/2013 02/07/2013 Discontinued units/mL human SUB-Q, Drug form: SOLN, recombinant TID-Before Meals, PRN Blood Glucose Results, Start date: 02/05/13 17:19:00, Duration: 30 day, Stop date: 03/07/13 17:18:00 insulin regular 100 1 unit, 0.01 mL, Route: 02/05/2013 02/07/2013 Discontinued units/mL human SUB-Q, Drug form: SOLN, recombinant TID-Before Meals, PRN Blood Glucose Results, Start date: 02/05/13 17:19:00, Duration: 30 day, Stop date: 03/07/13 17:18:00 Dextrose 50% in Water IV 25 mL, Route: IVP, Start 02/05/2013 02/07/2013 Discontinued date: 02/05/13 17:19:00, Duration: 30 day, Stop date: 03/07/13 17:18:00, PRN Blood Glucose Results Dextrose 50% in Water IV 50 mL, Route: IVP, Start 02/05/2013 02/07/2013 Discontinued date: 02/05/13 17:19:00, Duration: 30 day, Stop date: 03/07/13 17:18:00, PRN Blood Glucose Results Lortab 500 mg-7.5 mg/15 15 mL, PO, Q6H, 200 mL, 02/07/2013 Ordered mL oral elixir Substitution Allowed, Maintenance, LIQ gabapentin 800 mg oral 800 mg, 1 tab, PO, 01/23/2013 Ordered tablet Substitution Allowed glimepiride 4 mg oral 4 mg, 1 tab, PO, Daily, 01/23/2013 02/07/2013 Discontinued tablet Substitution Allowed Valtrex 1 gm, PO, Daily, 01/23/2013 Ordered Substitution Allowed Toprol-XL 50 mg oral 25 mg, PO, Daily, 01/23/2013 02/07/2013 Discontinued tablet, extended release Substitution Allowed Cozaar 25 mg oral tablet 25 mg, 1 tab, PO, Daily, 01/23/2013 02/07/2013 Discontinued 30 tab, Substitution Allowed, TAB amitriptyline-perphenazin 1 tab, PO, TID, 90 tab, 02/06/2013 Ordered e 50 mg-4 mg oral tablet Substitution Allowed, Maintenance, TAB Phenergan + Sodium 25 mg, 1 mL, Route: IVPB, 02/05/2013 02/07/2013 Discontinued Chloride 0.9% IV 50 mL Q4H, PRN Nausea & Vomiting, Start date: 02/05/13 15:20:00, Duration: 30 day, Stop date: 03/07/13 15:19:00 Peridex 0.12% topical 15 ml, Route: S&SPIT, 02/05/2013 02/05/2013 Completed liquid ONCE, Drug form: LIQ, Start date: 02/05/13 11:30:00, Stop date: 02/05/13 11:30:00 Zofran 4 mg, 2 mL, Route: IVP, 02/05/2013 02/07/2013 Discontinued Drug form: INJ, Q8H, PRN Nausea & Vomiting, Start date: 02/05/13 15:20:00, Duration: 30 day, Stop date: 03/07/13 15:19:00 Benadryl 12.5 mg, 0.25 mL, Route: 02/05/2013 02/07/2013 Discontinued IVP, Drug form: INJ, Q6H, PRN Itching, Start date: 02/05/13 15:20:00, Duration: 30 day, Stop date: 03/07/13 15:19:00 heparin 5,000 unit, 1 mL, Route: 02/06/2013 02/06/2013 Completed SUB-Q, Drug form: INJ, ONCE, Start date: 02/06/13 3:00:00, Stop date: 02/06/13 3:00:00 naloxone 0.2 mg, 0.5 mL, Route: 02/05/2013 02/07/2013 Discontinued IVP, Drug form: INJ, Q5Min, PRN Narcotic Reversal, Start date: 02/05/13 15:19:00, Duration: 30 day, Stop date: 03/07/13 15:18:00 morphine Sulfate 30 mg IV, Start date: 02/05/13 02/05/2013 02/07/2013 Discontinued 15:19:00, Duration: 30, 30 ml, 100 Pepcid 20 mg, 2 mL, Route: IVP, 02/05/2013 02/07/2013 Discontinued Drug form: INJ, Q12H, Start date: 02/05/13 21:00:00, Duration: 30 day, Stop date: 03/07/13 9:00:00 Lactated Ringers 1,000 mL, Rate: 80 ml/hr, 02/05/2013 02/07/2013 Discontinued Injection IV 1,000 mL Infuse over: 12.5 hr, Route: IV, Dosing Weight 100 kg, Total Volume: 1,000, Start date: 02/05/13 17:12:00, Stop date: 03/07/13 17:11:00 Vital Signs Most recent to oldest 1 2 3 [Reference Range]: Height 165.1 cm (01/23/2013 11:03:00) Temperature Oral 98.1 DegF 98.4 DegF 98.2 DegF [96.4-99.1 DegF] (02/07/2013 11:16:00) (02/07/2013 07:41:00) (02/07/2013 04: 30:00) Systolic Blood Pressure 124 mmHg 114 mmHg 144 mmHg [90-140 mmHg] (02/07/2013 11:16:00) (02/07/2013 07:41:00) *HI* (02/07/2013 04:30:00) Diastolic Blood Pressure 54 mmHg 51 mmHg 71 mmHg [60-90 mmHg] *LOW* *LOW* (02/07/2013 04:30:00) (02/07/2013 11:16:00) (02/07/2013 07:41:00) Respiratory Rate [14-20 18 BRMIN 17 BRMIN 18 BRMIN BRMIN] (02/07/2013 11:16:00) (02/07/2013 07:41:00) (02/07/2013 04:30:00) Peripheral Pulse Rate 67 bpm 69 bpm 81 bpm [60-100 bpm] (02/07/2013 11:16:00) (02/07/2013 07:41:00) (02/07/2013 04:30: 00) Weight 100 kg (01/23/2013 11:03:00) Results BEDSIDE GLUCOSE TESTING Most recent to oldest 1 2 3 [Reference Range]: Gluc POC Lifscn [70-99 110 mg/dL 1 132 mg/dL 2 147 mg/dL 3 mg/dL] *HI* *HI* *HI* (02/07/2013 10:54:00) (02/07/2013 05:53:00) (02/06/2013 21:19:00) Comment1 Notify RN/MD Notify RN/MD *NA* *NA* (02/07/2013 10:54:00) (02/06/2013 11:40:00) 1Interpretive Data: Upper Reportable Limit: 200 mg/dL.2Interpretive Data: Upper Reportable Limit: 200 mg/dL.3Interpretive Data: Upper Reportable Limit: 200 mg/dL.URINALYSIS Most recent to oldest [Reference Range]: 1 2 3 UA Turbidity [Clear] Clear (02/05/2013 13:20:00) UA Color [Yellow] Yellow *NA* (02/05/2013 13:20:00) UA pH [5.0-8.0] 5.0 (02/05/2013 13:20:00) UA Spec Grav [<=1.030] 1.017 (02/05/2013 13:20:00) UA Glucose [Negative mg/dL] Negative mg/dL *NA* (02/05/2013 13:20:00) UA Blood [Negative] Negative (02/05/2013 13:20:00) UA Ketones [Negative mg/dL] Negative mg/dL *NA* (02/05/2013 13:20:00) UA Protein [Negative mg/dL] Negative mg/dL (02/05/2013 13:20:00) UA Urobilinogen [0.1-1.0 mg/dL] <=1.0 mg/dL *NA* (02/05/2013 13:20:00) UA Bili [Negative] Negative *NA* (02/05/2013 13:20:00) UA Leuk Est [Negative] Moderate *ABN* (02/05/2013 13:20:00) UA Nitrite [Negative] Positive *ABN* (02/05/2013 13:20:00) UA WBC [0-5 /HPF] 8 /HPF *HI* (02/05/2013 13:20:00) UA RBC [0-2 /HPF] 1 /HPF (02/05/2013 13:20:00) UA Bacteria [None Seen /HPF] Occasional /HPF *NA* (02/05/2013 13:20:00) UA Sq Epi [Few /LPF] Few /LPF *NA* (02/05/2013 13:20:00) UA Mucus [None Seen /LPF] Few /LPF *NA* (02/05/2013 13:20:00) BLOOD BANK RESULTS Most recent to oldest [Reference Range]: 1 2 3 ABO/Rh A POS *Unknown* (02/05/2013 11:35:00) Antibody Scrn Negative (02/05/2013 11:35:00) CHEMISTRY Most recent to oldest 1 2 3 [Reference Range]: Sodium Lvl [135-145 mEq/L] 143 mEq/L 142 mEq/L 138 mEq/L (02/07/2013 04:56:00) (02/06/2013 03:34:00) (01/23/2013 11:50:00) Potassium Lvl [3.5-5.1 5.1 mEq/L 5.0 mEq/L 4.3 mEq/L mEq/L] (02/07/2013 04:56:00) (02/06/2013 03:34:00) (01/23/2013 11:50:00) Chloride Lvl [95-109 mEq/L] 111 mEq/L 108 mEq/L *HI* (02/06/2013 03:34:00) (02/07/2013 04:56:00) CO2 [24-32 mEq/L] 24 mEq/L 23 mEq/L (02/07/2013 04:56:00) *LOW* (02/06/2013 03:34:00) AGAP [10.0-20.0 mEq/L] 13.1 mEq/L 16.0 mEq/L (02/07/2013 04:56:00) (02/06/2013 03:34:00) Creatinine Lvl [0.5-1.4 0.9 mg/dL 1.1 mg/dL 1.0 mg/dL mg/dL] (02/07/2013 04:56:00) (02/06/2013 03:34:00) (01/23/2013 11:50:00) eGFR 66 mL/min/1.73m2 4 52 mL/min/1.73m2 5 58 mL/min/1.73m2 6 *NA* *NA* *NA* (02/07/2013 04:56:00) (02/06/2013 03:34:00) (01/23/2013 11:50:00) BUN [7-22 mg/dL] 15 mg/dL 15 mg/dL 19 mg/dL (02/07/2013 04:56:00) (02/06/2013 03:34:00) (01/23/2013 11:50:00) B/C Ratio [6-25] 17 14 (02/07/2013 04:56:00) (02/06/2013 03:34:00) Glucose Lvl [70-99 mg/dL] 114 mg/dL 7 190 mg/dL 8 176 mg/dL 9 *HI* *HI* *HI* (02/07/2013 04:56:00) (02/06/2013 03:34:00) (01/23/2013 11:50:00) Total Protein [6.4-8.4 6.0 g/dL 5.9 g/dL g/dL] *LOW* *LOW* (02/07/2013 04:56:00) (02/06/2013 03:34:00) Albumin Lvl [3.5-5.0 g/dL] 3.0 g/dL 3.3 g/dL *LOW* *LOW* (02/07/2013 04:56:00) (02/06/2013 03:34:00) Globulin [2.0-4.0 g/dL] 3.0 g/dL 2.6 g/dL (02/07/2013 04:56:00) (02/06/2013 03:34:00) A/G Ratio [0.7-1.6] 1.0 1.3 (02/07/2013 04:56:00) (02/06/2013 03:34:00) Calcium Lvl [8.5-10.5 8.8 mg/dL 8.8 mg/dL mg/dL] (02/07/2013 04:56:00) (02/06/2013 03:34:00) ALT [0-65 unit/L] 39 unit/L 74 unit/L (02/07/2013 04:56:00) *HI* (02/06/2013 03:34:00) AST [0-37 unit/L] 39 unit/L 67 unit/L *HI* *HI* (02/07/2013 04:56:00) (02/06/2013 03:34:00) Alk Phos [39-136 unit/L] 76 unit/L 95 unit/L (02/07/2013 04:56:00) (02/06/2013 03:34:00) Bili Total [0.2-1.3 mg/dL] 0.5 mg/dL 0.4 mg/dL (02/07/2013 04:56:00) (02/06/2013 03:34:00) Vitamin D, 25-OH, Total 25 ng/mL 10 [30-100 ng/mL] *LOW* (01/23/2013 11:50:00) PTH Intact [11.1-79.5 61.3 pg/mL pg/mL] (01/23/2013 11:50:00) 4Result Comment: The eGFR is calculated using the CKD-EPI formula. In most young , healthy individualsthe eGFR will be >90 mL/min/1.73m2. The eGFR declines with age. An eGFR of 60-89 may be normal in some populations, particularly the elderly, for whom the CKD-EPI formula has not been extensively validated. Use of the eGFR is not recommended in the following populations: Individuals with unstable creatinine concentrations, including patients and those with serious co-morbid conditions. Patients with extremes in muscle mass or diet. The data above are obtained from the National Kidney Disease Education Program ( NKDEP) which additionally recommends that when the eGFR is used in patients with extremes of body mass index for purposesof drug dosing, the eGFR should be multiplied by the estimated BMI.5Result Comment: The eGFR is calculated using the CKD-EPI formula. In most young, healthy individualsthe eGFR will be >90 mL/ min/1.73m2. The eGFR declines with age. An eGFR of 60-89 may be normal in some populations, particularly the elderly, for whom the CKD-EPI formula has not been extensively validated. Use of the eGFR is not recommended in the following populations: Individuals with unstable creatinine concentrations, including patients and those with serious co-morbid conditions. Patients with extremes in muscle mass or diet. The data above are obtained from the National Kidney Disease Education Program ( NKDEP) which additionally recommends that when the eGFR is used in patients with extremes of body mass index for purposesof drug dosing, the eGFR should be multiplied by the estimated BMI.6Result Comment: The eGFR is calculated using the CKD-EPI formula. In most young, healthy individualsthe eGFR will be >90 mL/ min/1.73m2. The eGFR declines with age. An eGFR of 60-89 may be normal in some populations, particularly the elderly, for whom the CKD-EPI formula has not been extensively validated. Use of the eGFR is not recommended in the following populations: Individuals with unstable creatinine concentrations, including patients and those with serious co-morbid conditions. Patients with extremes in muscle mass or diet. The data above are obtained from the National Kidney Disease Education Program ( NKDEP) which additionally recommends that when the eGFR is used in patients with extremes of body mass index for purposesof drug dosing, the eGFR should be multiplied by the estimated BMI.7Interpretive Data: Adult reference range values reflect the clinical guidelines of the [place] [employer].8Interpretive Data: Adult reference range values reflect the clinical guidelines of the [place] [employer].9Interpretive Data: Adult reference range values reflect the clinical guidelines of the [place] [employer].10Interpretive Data: Reference range is based on recommendations in the Endocrine Society Clinical Practice Guideline (J Clin Endocrinol Metab 2011;96:0893-8601)HEMATOLOGY Most recent to oldest 1 2 3 [Reference Range]: WBC [3.7-10.4 K/CMM] 5.7 K/CMM 10.6 K/CMM (02/07/2013 04:56:00) *HI* (02/06/2013 03:34:00) RBC [4.20-5.40 M/CMM] 3.26 M/CMM 3.65 M/CMM *LOW* *LOW* (02/07/2013 04:56:00) (02/06/2013 03:34:00) Hgb [12.0-16.0 g/dL] 8.9 g/dL 9.9 g/dL 11.4 g/dL *LOW* *LOW* *LOW* (02/07/2013 04:56:00) (02/06/2013 03:34:00) (01/23/2013 11:50:00) Hct [36.0-48.0 %] 28.3 % 31.4 % 34.8 % *LOW* *LOW* *LOW* (02/07/2013 04:56:00) (02/06/2013 03:34:00) (01/23/2013 11:50:00) MCV [81.0-99.0 fL] 86.7 fL 86.1 fL (02/07/2013 04:56:00) (02/06/2013 03:34:00) MCH [27.0-31.0 pg] 27.4 pg 27.1 pg (02/07/2013 04:56:00) (02/06/2013 03:34:00) MCHC [32.0-36.0 g/dL] 31.6 g/dL 31.5 g/dL *LOW* *LOW* (02/07/2013 04:56:00) (02/06/2013 03:34:00) RDW [11.5-14.5 %] 16.9 % 16.7 % *HI* *HI* (02/07/2013 04:56:00) (02/06/2013 03:34:00) Platelet [133-450 K/CMM] 147 K/CMM 184 K/CMM (02/07/2013 04:56:00) (02/06/2013 03:34:00) MPV [7.4-10.4 fL] 8.1 fL 8.2 fL (02/07/2013 04:56:00) (02/06/2013 03:34:00) Segs [45.0-75.0 %] 53.9 % 82.7 % (02/07/2013 04:56:00) *HI* (02/06/2013 03:34:00) Lymphocytes [20.0-40.0 %] 35.3 % 10.7 % (02/07/2013 04:56:00) *LOW* (02/06/2013 03:34:00) Monocytes [2.0-12.0 %] 8.2 % 6.5 % (02/07/2013 04:56:00) (02/06/2013 03:34:00) Eosinophils [0.0-4.0 %] 2.5 % 0.0 % (02/07/2013 04:56:00) (02/06/2013 03:34:00) Basophils [0.0-1.0 %] 0.1 % 0.1 % (02/07/2013 04:56:00) (02/06/2013 03:34:00) Segs-Bands # [1.5-8.1 3.1 K/CMM 8.7 K/CMM K/CMM] (02/07/2013 04:56:00) *HI* (02/06/2013 03:34:00) Lymphocytes # [1.0-5.5 2.0 K/CMM 1.1 K/CMM K/CMM] (02/07/2013 04:56:00) (02/06/2013 03:34:00) Monocytes # [0.0-0.8 K/CMM] 0.5 K/CMM 0.7 K/CMM (02/07/2013 04:56:00) (02/06/2013 03:34:00) Eosinophils # [0.0-0.5 0.1 K/CMM 0.0 K/CMM K/CMM] (02/07/2013 04:56:00) (02/06/2013 03:34:00) Basophils # [0.0-0.2 K/CMM] 0.0 K/CMM 0.0 K/CMM (02/07/2013 04:56:00) (02/06/2013 03:34:00) RBC Morph Normal (02/06/2013 03:34:00) Plt Morph Normal (02/06/2013 03:34:00) Procedures Procedures Date Related Diagnosis Ankle 1 Appendectomy Carpal tunnel release Cervical spinal fusion section Cholecystectomy Decompression laminectomy of lumbar spine Gastric bypass operation 02/05/2013 00:00:00 H/O: hysterectomy Knee replacement 1ankle fusion x3
[2018-08-04] MEDS ORDERED: TRAMADOL HCL 50 MG TAB ONE (12:49)
--- NOTE | 2018-08-04 13:45 | RAD REPORT ---
EXAM DESCRIPTION: RAD - Shoulder Left 2 View - 08/04/2018 1:35 pm CLINICAL HISTORY: Left shoulder pain status post fall FINDINGS: Impacted fracture involves humeral neck. Mild displacement of fracture fragments is presen t. No dislocation seen
--- NOTE | 2018-08-04 13:53 | EDPHYS ---
Physician Documentation [facility] Name: Katie Carl Age: 73 yrs Sex: Female : 1945 Arrival Date: 08/04/2018 Time: 11:57 Bed 16 Private MD: Nael Williamson ED Physician Karl Khoury HPI: 08/04 12:40 This 73 yrs old Female presents to ER via Ambulatory with complaints of Fall pm1 Injury - SHOULDER. 12:40 Details of fall: The patient fell from an upright position, while walking. Onset: The pm1 symptoms/episode began/occurred just prior to arrival. Associated injuries: The patient sustained anterior aspect of left shoulder. Severity of symptoms: in the emergency department the symptoms are unchanged. The patient has not experienced similar symptoms in the past. The patient has not recently seen a physician. Patient was walking at an estate sale and tripped. Fell on her left shoulder area. No headache, head injury, neck pain, LOC. Historical: - Allergies: 12:05 No Known Allergies; aj1 - PMHx: 12:05 Diabetes - NIDDM; heart stents x2; Hyperlipidemia; Hypertension; aj1 - PSHx: 12:05 knee replacement; pins and screws in left ankle; aj1 - Immunization history:: Flu vaccine is up to date. - Social history:: Smoking status: Patient/guardian denies using tobacco. - Ebola Screening: : Patient denies travel to an Ebola-affected area in the 21 days before illness onset. ROS: 12:40 Constitutional: Negative for fever, chills, and weight loss, Eyes: Negative for injury, pm1 pain, redness, and discharge, ENT: Negative for injury, pain, and discharge, Neck: Negative for injury, pain, and swelling, Cardiovascular: Negative for chest pain, palpitations, and edema, Respiratory: Negative for shortness of breath, cough, wheezing, and pleuritic chest pain, Abdomen/GI: Negative for abdominal pain, nausea, vomiting, diarrhea, and constipation, Back: Negative for injury and pain, : Negative for injury, bleeding, discharge, and swelling. 12:40 Skin: Negative for injury, rash, and discoloration, Neuro: Negative for headache, weakness, numbness, tingling, and seizure. 12:40 MS/extremity: Positive for pain, of the anterior aspect of left shoulder. Exam: 12:40 Constitutional: This is a well developed, well nourished patient who is awake, alert, pm1 and in no acute distress. Head/Face: Normocephalic, atraumatic. Neck: Trachea midline, no thyromegaly or masses palpated, and no cervical lymphadenopathy. Supple, full range of motion without nuchal rigidity, or vertebral point tenderness. No Meningismus. Chest/axilla: Normal chest wall appearance and motion. Nontender with no deformity. No lesions are appreciated. Cardiovascular: Regular rate and rhythm with a normal S1 and S2. No gallops, murmurs, or rubs. Normal PMI, no JVD. No pulse deficits. Respiratory: Lungs have equal breath sounds bilaterally, clear to auscultation and percussion. No rales, rhonchi or wheezes noted. No increased work of breathing, no retractions or nasal flaring. Back: No spinal tenderness. No costovertebral tenderness. Full range of motion. Skin: Warm, dry with normal turgor. Normal color with no rashes, no lesions, and no evidence of cellulitis. 12:40 Musculoskeletal/extremity: Extremities: grossly normal except: noted in the anterior aspect of left shoulder: Pulses: noted to be 2+ in the left radial artery. 12:40 Neuro: Orientation: is normal, Motor: is normal, moves all fours, Gait: is steady, at a normal pace, without difficulty. Vital Signs: 12:05 BP 126 / 71; Pulse 68; Resp 18; Temp 97.5; Pulse Ox 100% on R/A; Weight 81.65 kg (R); aj1 Height 5 ft. 5 in. (165.10 cm) (R); Pain 9/10; 13:00 BP 126 / 70; Pulse 68; Resp 17; Pulse Ox 98% ; Pain 8/10; rb1 14:00 BP 123 / 62; Pulse 69; Resp 17; Pulse Ox 97% on R/A; rb1 12:05 Body Mass Index 29.95 (81.65 kg, 165.10 cm) aj1 MDM: 12:20 Patient medically screened. pm1 13:49 Data reviewed: vital signs. Data interpreted: Pulse oximetry: on room air is 100 %. pm1 Interpretation: normal. Counseling: I had a detailed discussion with the patient and/or guardian regarding: the historical points, exam findings, and any diagnostic results supporting the discharge/admit diagnosis, radiology results, the need for outpatient follow up, for definitive care, a orthopedic surgeon, to return to the emergency department if symptoms worsen or persist or if there are any questions or concerns that arise at home. 08/04 12:37 Order name: Shoulder Left (2 View) XRAY; Complete Time: 13:47 pm1 08/04 12:37 Order name: Sling; Complete Time: 13:47 pm1 Administered Medications: 12:39 Drug: traMADol 50 mg Route: PO; rb1 13:00 Follow up: Response: No adverse reaction; Pain is decreased rb1 Disposition: 16:12 Co-signature as Attending Physician, Karl Khoury MD. rn Disposition: 08/04/18 13:52 Discharged to Home. Impression: Unspecified displaced fracture of surgical neck of left humerus. - Condition is Stable. - Discharge Instructions: Humerus Fracture Treated With Immobilization, How to Use a Sling. - Prescriptions for Tramadol 50 mg Oral Tablet - take 1 tablet by ORAL route every 8 hours as needed; 20 tablet. - Medication Reconciliation Form, Thank You Letter, Prescription Opioid Use form. - Follow up: Emergency Department; When: As needed; Reason: Worsening of condition. Follow up: Cezar Bowers MD; When: 2 - 3 days; Reason: Recheck today's complaints, Continuance of care, Re-evaluation by your physician. - Problem is new. - Symptoms have improved. Signatures: Dispatcher [employer] EDSobia Branham RN RN aj1 Karl Khoury MD MD rn Park Pina RN RN rb1 Raul Arciniega NP [employer]DROX[employer] OPERATOR pm1 Corrections: (The following items were deleted from the chart) 14:51 13:52 08/04/2018 13:52 Discharged to Home. Impression: Unspecified displaced fracture rb1 of surgical neck of left humerus. Condition is Stable. Forms are Medication Reconciliation Form, Thank You Letter, Antibiotic Education, Prescription Opioid Use. Follow up: Emergency Department; When: As needed; Reason: Worsening of condition. Follow up: Dr. Cezar Bowers; When: 2 - 3 days; Reason: Recheck today's complaints, Continuance of care, Re-evaluation by your physician. Problem is new. Symptoms have improved. pm1
--- NOTE | 2018-08-04 13:53 | ER ---
Nurse's Notes [facility] Name: Katie Carl Age: 73 yrs Sex: Female : 1945 Arrival Date: 08/04/2018 Time: 11:57 Bed 16 Private MD: Nael Williamson Diagnosis: Unspecified displaced fracture of surgical neck of left humerus Presentation: 08/04 12:01 Presenting complaint: Patient states: She was at an estates sale and tripped over aj1 something and landed on her left side. Denies hitting head. Reports pain to left shoulder. Transition of care: patient was not received from another setting of care. Onset of symptoms was August 04, 2018. Risk Assessment: Do you want to hurt yourself or someone else? Patient reports no desire to harm self or others. Initial Sepsis Screen: Does the patient meet any 2 criteria? No. Patient's initial sepsis screen is negative. Does the patient have a suspected source of infection? No. Patient's initial sepsis screen is negative. Care prior to arrival: None. 12:01 Method Of Arrival: [facility] 12:01 Acuity: BERE 3 aj1 Triage Assessment: 12:05 General: Appears in no apparent distress. uncomfortable, Behavior is calm, cooperative, aj1 appropriate for age. Pain: Complains of pain in anterior aspect of left shoulder and posterior aspect of left shoulder Pain currently is 9 out of 10 on a pain scale. Neuro: Level of Consciousness is awake, alert, obeys commands. Cardiovascular: Patient's skin is warm and dry. Respiratory: Airway is patent Respiratory effort is even, unlabored, Respiratory pattern is regular, symmetrical. Historical: - Allergies: 12:05 No Known Allergies; aj1 - PMHx: 12:05 Diabetes - NIDDM; heart stents x2; Hyperlipidemia; Hypertension; aj1 - PSHx: 12:05 knee replacement; pins and screws in left ankle; aj1 - Immunization history:: Flu vaccine is up to date. - Social history:: Smoking status: Patient/guardian denies using tobacco. - Ebola Screening: : Patient denies travel to an Ebola-affected area in the 21 days before illness onset. Screenin:07 Abuse screen: Denies threats or abuse. Nutritional screening: No deficits noted. rb1 Tuberculosis screening: No symptoms or risk factors identified. Fall Risk Fall in past 12 months (25 points). No secondary diagnosis (0 pts). No IV (0 pts). Ambulatory Aid- None/Bed Rest/Nurse Assist (0 pts). Gait- Normal/Bed Rest/Wheelchair (0 pts) Mental Status- Oriented to own ability (0 pts). Total Aiken Fall Scale indicates Low Risk Score (25-44 pts). Fall prevention measures have been instituted. Side Rails Up X 2 Placed close to Nursing Station 1:1 attendant Assigned to Pt. Frequent Obs/Assesments occuring Family Present and informed to notify staff if they need to leave bedside As available Patient and Family Educated on Fall Prevention Program and strategies. Assessment: 12:07 General: Appears uncomfortable, Behavior is calm, cooperative. Pain: Complains of pain rb1 in anterior aspect of left shoulder Pain currently is 10 out of 10 on a pain scale. Pain began 1 hour ago. Neuro: Level of Consciousness is awake, alert, obeys commands, Oriented to person, place, time, situation. Cardiovascular: Capillary refill < 3 seconds is brisk in bilateral fingers. Respiratory: Airway is patent Respiratory effort is even, unlabored, Respiratory pattern is regular, symmetrical. GI: No signs and/or symptoms were reported involving the gastrointestinal system. : No signs and/or symptoms were reported regarding the genitourinary system. Derm: Skin is dry, Skin is normal, Skin temperature is warm. Musculoskeletal: Range of motion: limited in anterior aspect of left shoulder. 13:00 Reassessment: Patient appears in no apparent distress at this time. Patient and/or rb1 family updated on plan of care and expected duration. Pain level reassessed. Patient is alert, oriented x 3, equal unlabored respirations, skin warm/dry/pink. at bedside. 14:00 Reassessment: Patient appears in no apparent distress at this time. No changes from rb1 previously documented assessment. 14:31 Reassessment: Pt. is waiting for a CD to be brought to the floor before leaving the rb1 unit. Vital Signs: 12:05 BP 126 / 71; Pulse 68; Resp 18; Temp 97.5; Pulse Ox 100% on R/A; Weight 81.65 kg (R); aj1 Height 5 ft. 5 in. (165.10 cm) (R); Pain 9/10; 13:00 BP 126 / 70; Pulse 68; Resp 17; Pulse Ox 98% ; Pain 8/10; rb1 14:00 BP 123 / 62; Pulse 69; Resp 17; Pulse Ox 97% on R/A; rb1 12:05 Body Mass Index 29.95 (81.65 kg, 165.10 cm) aj1 ED Course: 11:57 Patient arrived in ED. sb2 11:57 Nael Williamson MD is Private Physician. sb2 12:03 Triage completed. aj1 12:05 Arm band placed on Patient placed in an exam room. aj1 12:07 Patient has correct armband on for positive identification. Bed in low position. Call rb1 light in reach. Side rails up X 1. Pulse ox on. NIBP on. 12:12 Raul Arciniega NP is PHCP. pm1 12:12 Karl Khoury MD is Attending Physician. pm1 12:23 Park Pina RN is Primary Nurse. rb1 13:35 Shoulder Left (2 View) XRAY In Process Unspecified. EDMS 13:49 Cezar Bowers MD is Referral Physician. pm1 14:51 No provider procedures requiring assistance completed. Patient did not have IV access rb1 during this emergency room visit. Administered Medications: 12:39 Drug: traMADol 50 mg Route: PO; rb1 13:00 Follow up: Response: No adverse reaction; Pain is decreased rb1 Outcome: 13:52 Discharge ordered by . pm1 14:51 Patient left the ED. rb1 14:51 Discharged to home ambulatory, with significant other. rb1 14:51 Condition: stable 14:51 Discharge instructions given to patient, Instructed on discharge instructions, follow up and referral plans. medication usage, Demonstrated understanding of instructions, follow-up care, medications, Prescriptions given X 1. Signatures: Dispatcher [employer] EDMS Sobia Cruz RN RN aj1 Park Pina RN RN rb1 Raul Arciniega NP [employer]EARCH TECHNICIAN pm1 Gloria Meeks sb2
== END 2018-08-04 14:51 | disposition home or self-care (01) ==
LOC: ER 11:54
DX: S42.212A Unspecified displaced fracture of surgical neck of left humerus, initial encounter for closed fracture (principal); W01.0XXA Fall on same level from slipping, tripping and stumbling without subsequent striking against object, initial encounter
CPT/HCPCS: 99284

== ENCOUNTER 2019-12-16 13:49 | Day surgery (SDC) | payer BC, OTHER ==
[2019-12-16] MEDS ORDERED: NA CHLORIDE 0.9% 500 ML ONE (14:23)
--- OUTSIDE RECORDS SUMMARY | 2019-12-16 14:37 | XMS REPORT | Clinical Summary ---
:1945 Author Organization [facility] Address [address] [place] [address] Care Team Providers Name Role Phone Eduardo Williamson MD Primary Care Provider Allergies Active Allergy Reactions Severity Noted Date Comments Codeine Itching Low 08/10/2017 Propoxyphene Napsylate 08/01/2017 Medications Medication Sig Dispensed Refills Start End Date Status Date atorvastatin (LIPITOR) 0 Active 10 MG tablet 7 amitriptyline (ELAVIL) 100 mg 0 Active 50 MG tablet nightly. 8 ONETOUCH ULTRA TEST 0 Active strip test strips 7 colchicine 0.6 mg 0 Ac tive tablet 7 hydroxychloroquine Take 200 0 A ctive (PLAQUENIL) 200 mg mg by 8 tablet mouth 2 (two) times a day. SYNTHROID 50 mcg tablet 0 Active 7 VICTOZA 3-KJ 0.6 0 Ac tive mg/0.1 mL (18 mg/3 mL) 7 pen injector losartan (COZAAR) 50 MG 0 Active tablet 7 metFORMIN XR 0 Active (GLUCOPHAGE-XR) 500 mg 7 24 hr tablet BD ULTRA-FINE VERN PEN 0 Active NEEDLES 32 gauge x 7 5/32" needle valACYclovir (VALTREX) 0 Active 1000 MG tablet 7 aspirin (ECOTRIN) 81 MG Take 81 mg 0 Active enteric coated tablet by mouth daily. MULTIVIT-MINERALS/ADELA Take by 0 Active US FUM (MULTI VITAMIN mouth. ORAL) LACTOBACILLUS Take by 0 Active ACIDOPHILUS (PROBIOTIC mouth. ORAL) metoprolol tartrate Take 1 180 tablet 0 Active (LOPRESSOR) 50 mg tablet (50 0 tablet mg total) by mouth 2 (two) times a day. clopidogrel (PLAVIX) 75 Take 1 90 tablet 3 mg tablet tablet (75 8 19 mg total) by mouth daily. metoprolol tartrate Take 1 180 tablet 0 12/30/19 Discontinued (LOPRESSOR) 50 mg tablet (50 9 19 ( Reorder) tablet mg total) by mouth 2 (two) times a day. metoprolol tartrate TAKE 1 180 tablet 0 01/03/20 Discontinued (LOPRESSOR) 50 mg TABLET BY 9 19 (R eorder) tablet MOUTH TWICE A DAY metoprolol tartrate TAKE 1 180 tablet 0 03/31/20 Discontinued (LOPRESSOR) 50 mg TABLET BY 9 19 (R eorder) tablet MOUTH TWICE A DAY metoprolol tartrate TAKE 1 180 tablet 0 07/11/19 Discontinued (LOPRESSOR) 50 mg TABLET BY 9 20 tablet MOUTH TWICE A DAY metoprolol tartrate TAKE 1 180 tablet 0 10/08/19 Discontinued (LOPRESSOR) 50 mg TABLET BY 0 20 (R eorder) tablet MOUTH TWICE A DAY metoprolol tartrate Take 1 180 tablet 0 11/19/19 Discontinued (LOPRESSOR) 50 mg tablet (50 0 20 ( Reorder) tablet mg total) by mouth 2 (two) times a day. Active Problems Problem Noted Date History of coronary artery stent placement 03/05/[address] disease involving [place] coronary rudy ry of [place] heart 08/07/2017 without angina pectoris Overview: Added automatically from request for nhan gonzalezy [id number] CAD in [place] artery 08/01/2017 Essential hypertension 08/01/2017 Stented coronary artery 08/01/2017 Encounters Date Type Specialty Care Team Description 11/19/2019 Orders Only Cardiology Luis Gaytan MA 10/08/2019 Orders Only Cardiology Luis Gaytan MA 07/11/2019 Refill Cardiology Paxton Meneses MD Med Refi ll 03/31/2019 Refill Cardiology Paxton Meneses MD Med Refi ll 03/11/2019 Orders Only Cardiology Paxton Meneses MD 03/05/2019 Office Visit Cardiology Paxton Meneses MD CAD in n ative artery (Primary Dx); History of anselmo nary artery stent placement 01/02/2019 Refill Cardiology Paxton Meneses MD Med Refi ll 12/29/2018 Refill Cardiology Paxton Meneses MD Med Refi ll after 12/15/2018 Family History Medical History Relation Name Comments [...] Vital Signs Vital Sign Reading Time Taken Comments Blood Pressure 138/60 03/05/2019 9:42 AM CDT Pulse 71 03/05/2019 9:42 AM CDT Temperature - - Respiratory Rate - - Oxygen Saturation - - Inhaled Oxygen Concentration - - Weight 82.6 kg (182 lb) 03/05/2019 9:42 AM CDT Height 165.1 cm (5' 5") 03/05/2019 9:42 AM CDT Body Mass Index 30.29 03/05/2019 9:42 AM CDT Plan of Treatment Date Type Specialty Care Team Description 03/03/2020 Office Visit Cardiology Paxton Meneses MD [address] [facility] [address] [place], [place] [address] [phone] Health Maintenance Due Date Last Done Comments BREAST CANCER SCREENING 1995 COLONOSCOPY SCREENING 1995 SHINGLES VACCINES (#1) 1995 65+ PNEUMOCOCCAL VACCINE (1 of 2 - PCV13) 2010 INFLUENZA VACCINE 01/25/2020 Implants Implanted Type Area Leasing Sales Consultant Device Shelf Model / Identifier Expiration Serial / Date Lot Stent Coronary Syst Synergy (Mr) 3.50mm X 12mm - [id number] Coronary N/A: BSC 04/21/2018 [id number] / Implanted: 08/10/2017 at [facility] (Quantity not on file) Ian nts N/A INTERVENTIONAL / CARDIOLOGY [id number] Procedures Procedure Name Priority Date/Time Associated Diagnosis Comme nts AST (SGOT) Routine 03/11/2019 7:52 AM Results for this CDT procedure are i n the results section . LIPID PANEL Routine 03/11/2019 7:52 AM Results for this CDT procedure are i n the results section . ECG 12-LEAD Routine 03/05/2019 8:[address] [place] artery Results for this CDT procedure are i n the results section . after 12/15/2018 Results AST (SGOT) (03/11/2019 7:52 AM CDT) Pathologist Sig nature AST 44 (H) 0 - 40 IU/L [facility] Specimen Narrative Performed At Performed at: [facility] [address] [place] [address] [id number] Lumber Material Handler: Christ Cervantes MD, Phone: [phone] Performing Organization Address [facility] Phone Number [facility] Lipid panel (03/11/2019 7:52 AM CDT) Pathologist Sig nature Cholesterol 128 100 - 199 mg/dL [facility] Triglycerides 134 0 - 149 mg/dL [facility] HDL cholesterol 34 (L) >39 mg/dL [facility] VLDL cholesterol aneesh 27 5 - 40 mg/dL [facility] LDL cholesterol calculated 67 0 - 99 mg/dL [facility] Non-HDL cholesterol 94 0 - 129 mg/dL [facility] Specimen Narrative Performed At Performed at: [facility] [address] [place] [address] [id number] Lumber Material Handler: Christ Cervantes MD, Phone: [phone] Specimen Comment: A duplicate report has been generate d due to demographic updates. Performing Organization Address [facility] Phone Number [facility] ECG 12 lead (03/05/2019 8:36 AM CDT) Pathologist Sig nature Ventricular rate 67 [facility] Atrial rate 67 [facility] CA interval 136 [facility] QRSD interval 84 [facility] QT interval 400 [facility] QTC interval 422 [facility] P axis 1 70 [facility] QRS axis 1 4 [facility] T wave axis 54 [facility] EKG impression Normal sinus [facility] rhythm-Normal ECG-In automated comparison with ECG of 10-AUG-2017 10:37,-No significant change was found- Specimen Narrative Performed At This result has an attachment that is no t available. Performing Organization Address City/State/Zipcode Phone Number 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
--- OUTSIDE RECORDS SUMMARY | 2019-12-16 14:40 | XMS REPORT | Continuity of Care Document ---
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 [facility] disc (disorder) 011 7 Data migrated from [employer] on 11/25/14. [facility] Lumbosacral Active Problem Data migrated from [employer] on 11/25/14. [facility] spondylosis without 011 7 Data migra rita from [employer] on 11/25/14. [place] myelopathy (disorder) [facility] Spinal stenosis of Active Problem Data m igrated from [employer] on 11/25/14. [facility] lumbar region 011 7 Data migrated fr om [employer] on 11/25/14. Sugar (disorder) [facility] Osteoarthritis of foot Active Problem Da ta migrated from [employer] on 11/25/14. [facility] joint (disorder) 009 7 Data migrated from [employer] on 11/25/14. [facility] Osteoarthritis of knee Active Problem Da ta migrated from [employer] on 11/25/14. OPID (disorder) 009 7 Data migrated from [employer] on 11/25/14. [facility] Anxiety (finding) Active Problem OPID 7 [facility] Diabetes mellitus Active Problem OPID (disorder) 7 [facility] Hypertensive disorder, Active Problem OPID systemic arterial 7 [place] [facility] (disorder) [facility] Hypercholesterolemia Active Problem OPID (disorder) 7 [facility] Hypothyroidism Active Problem OP ID (disorder) 7 [facility] Morbid obesity Active Problem OP ID (disorder) 7 [facility] Sleep apnea (finding) Resolved Problem OPID 7 [facility] Anxiety Active Problem [address] DM - Diabetes mellitus Active Problem [address] High blood pressure Active Problem [address] Hypercholesterolemia Active Problem [address] Hypothyroidism Active Problem [address] Morbid obesity Active Problem [address] Sleep apnea Resolved Problem [address] MORBID OBESITY Active [facility] Medications Medication Details Route Status Patient Ordering Order Source Instructions Provider Date Nitroglycerin 0.4 0.4 mg = 1 Active MG Sublingual tab, SL, 2016 [facility] Tablet Q5Min, PRN [Nitrostat] Chest Pain, # 30 tab, 0 Refill(s) atorvastatin 10 20 mg = 2 tab, Active H mg oral tablet PO, Bedtime, # 2017 [place] tab, 3 Refill(s) ticagrelor 90 mg 90 mg = 1 tab, Active oral tablet PO, Q12H, # 60 2017 [facility] tab, 11 Refill(s) aspirin 81 mg 81 mg = 1 tab, Active tablet, enteric PO, Daily, # 2017 [facility] 30 tab, 11 Refill(s) metoprolol 50 mg = 1 tab, Active tartrate 50 mg PO, Q12H, # 60 2017 [place] oral tablet tab, 3 Refill(s) Hydroxychloroquin Notes: (Same Inactive e Sulfate 200 MG as: Plaquenil) 2016 [facility] Oral Tablet Hydroxychloroq uine sulfate 200 mg = 155 mg hydroxychloroq uine base. If treating malaria, verify dose as salt vs. base per CDC guideline Esomeprazole 20 mg, Route: No Longer PO, Drug form: Active 2016 ECCAP, Daily, Dosing Weight 75, kg, Start date: 01/14/17 9:00:00 CDT, Duration: 30 day, Stop date: 02/12/17 9:00:00 CDT Streptococcus Notes: Shake Inactive pneumoniae well prior to [address] [facility] [address] serotype 1 use (Same as: capsular antigen Prevnar 13) diphtheria [id number] protein conjugate vaccine / Streptococcus pneumoniae serotype 14 capsular antigen diphtheria [id number] protein conjugate vaccine / Streptococcus pneumoniae serotype 18C capsular antigen d aspirin 81 mg 81 mg, Route: No Longer tablet, enteric PO, Drug form: Active [place] coated ECTAB, Daily, Dosing Weight 75, kg, Start date: 01/14/17 9:00:00 CDT, Duration: 30 day, Stop date: 02/12/17 9:00:00 CDT pantoprazole Notes: Tablet Inactive should not be 2016 chewed or crushed. (Same as: Protonix) Thyroxine Notes: Take 1 Inactive hour before or 2016 2 hours after meal; Enteral feeds may interefere with the absorption of this medication.([facility] as:Levothroid, Synthroid) Amitriptyline Notes: (Same No Longer as: Elavil) Active 2016 atorvastatin 10 mg, Route: Inactive PO, Drug form: 2016 TAB, Bedtime, Dosing Weight 75, kg, Start date: 01/13/17 21:00:00 CDT, Duration: 30 day, Stop date: 02/11/17 21:00:00 CDT metoprolol Notes: (Same No Longer tartrate as: Lopressor) Active 2016 [facility] t Ticagrelor Notes: (Same No Longer as: Brilinta) Active 2016 3 ML liraglutide 1.8 mg, SUB-Q, Active 6 MG/ML Prefilled Daily, # 9 mL, 2016 Syringe [Victoza] 1 Refill(s) metoprolol 50 mg, Daily, No Longer tartrate 0 Refill(s) Active 2016 amitriptyline 50 100 mg = 2 Active mg oral tablet tab, PO, 2016 [facility] t Bedtime, # 30 tab, 0 Refill(s) have RPh verify & have RPh No Longer bar-code pt own verify & Active 2016 [facility] Amitriptyline-Per bar-code pt phenazine own Amitriptyline- Perphenazine, reminder, Drug form: MISC, Route: MISC, QSHIFT, 01/13/17 16:00:00 CDT, Duration: 30 day, Stop date: 02/12/17 8:00:00 CDT tramadol Notes: Not to No Longer hydrochloride 50 exceed Active 2016 [facility] MG Oral Tablet 400mg/day. (Same As: Ultram) aspirin 81 mg Notes: Do not No Longer tablet, enteric crush or chew. Active 2016 [place] coated (Same As: Ecotrin) Amitriptyline 1 tab, Route: Inactive Hydrochloride 50 PO, Drug Form: 2016 [facility] MG / Perphenazine TAB, Dosing 4 MG Oral Tablet Weight 75, kg, TID, Start date: 01/13/17 13:00:00 CDT, Duration: 30 day, Stop date: 02/12/17 9:00:00 CDT Aspirin 325 MG 325 mg, Route: Inactive H Oral Tablet PO, Drug form: 2016 [facility] CHEWTAB, ONCE, Dosing Weight 75, kg, Start date: 01/13/17 11:13:00 CDT, Stop date: 01/13/17 11:13:00 CDT Ticagrelor Notes: (Same Inactive as: Brilinta) 2016 Nitroglycerin Notes: (Same No Longer as:Nitroquick, Active 2016 [facility] Nitrostat) "Do Not Crush" Sublingual tablet Diphenhydramine 25 mg, 1 tab, No Longer Route: PO, Active 2016 Drug form: TAB, Bedtime, Dosing Weight 75, kg, PRN Insomnia, Start date: 01/13/17 11:13:00 CDT, Duration: 30 day, Stop date: 02/12/17 11:12:00 CDT Ondansetron Notes: (Same No Longer as: Zofran) Active 2016 [facility] Temazepam Notes: (Same No Longer As: Restoril) Active 2016 [facility] Sodium Chloride 750 mL, Rate: Inactive H 0.154 MEQ/ML 75 ml/hr, 2016 [facility] Injectable Infuse over: Solution 10 hr, Route: IV, Dosing Weight 75 kg, Total Volume: 750, Start date: 01/13/17 11:13:00 CDT, Duration: 10 hr, Stop date: 01/13/17 21:12:00 CDT atorvastatin 10 10 mg = 1 tab, No Longer mg oral tablet PO, Bedtime, # Active 2016 [place] 30 tab, 0 Refill(s) Metformin 500 mg = 1 Active hydrochloride 500 tab, PO, 2016 [facility] Oral Tablet Daily, take with a meal, # 30 tab, 1 Refill(s) Metformin PO, 0 Inactive Refill(s) 2016 metoprolol 50 mg = 1 tab, Inactive tartrate 50 mg PO, BID, # 60 2017 [facility] oral tablet tab, 0 Refill(s) Hydroxychloroquin 200 mg = 1 Active e Sulfate 200 MG tab, PO, 2016 ast Oral Tablet Daily, 0 Refill(s) Nitroglycerin 0.4 0.4 mg = 1 Active MG Sublingual tab, SL, 2014 Tablet Q5Min, PRN [Nitrostat] Chest Pain, # 30 tab, 0 Refill(s) Saline Flush 0.9% Notes: (Same No Longer as: BD Active 2014 Posiflush) Lortab 500 mg-7.5 15 mL, PO, PO Active [place] mg/15 mL oral Q6H, 200 mL, 2012 [facility] Substitution City Allowed, Maintenance, LIQ amitriptyline-per 1 tab, PO, PO Active phenazine 50 mg-4 TID, 90 tab, 2012 [facility] tablet Substitution [place] Allowed, Maintenance, TAB Lovenox 40 mg, 0.4 mL, SUB-Q No Longer [place] Route: SUB-Q, Active 2012 [facility] Drug form: [facility] INJ, [id number], Start date: 02/06/13 12:00:00, Duration: 30 day, Stop date: 03/08/13 0:00:00 Tylenol 650 mg, 20.3 PO No Longer [place]mo mL, Route: PO, Active 2012 [facility] Drug form: [facility] LIQ, Q4H, PRN Pain Score 1-3, Start date: 02/06/13 11:34:00, Duration: 30 day, Stop date: 03/08/13 11:33:00 heparin 5,000 unit, 1 SUB-Q No Longer [place]mo mL, Route: Active 2012 [facility] SUB-Q, Drug City form: INJ, ONCE, Start date: 02/06/13 3:00:00, Stop date: 02/06/13 3:00:00 Reglan 10 mg, 2 mL, IV No Longer Anselmo Route: IV, [facility] 2012 [facility] Drug form: [facility] INJ, Q8H, Start date: 02/06/13 0:00:00, Duration: 30 day, Stop date: 03/07/13 16:00:00 cefazolin 2 gm, 100 mL, IVPB No Longer [place] Route: IVPB, Active 2012 [facility] Drug form: [facility] INJ, [id number], Start date: 02/05/13 21:00:00, Duration: 3 doses or times, Stop date: 02/06/13 13:00:00 Pepcid 20 mg, 2 mL, IVP No Longer [place] Route: IVP, Active 2012 [facility] Drug form: [facility] INJ, Q12H, Start date: 02/05/13 21:00:00, Duration: 30 day, Stop date: 03/07/13 9:00:00 ketorolac 30 30 mg, 1 mL, IV No Longer Anselmo mg/mL injectable Route: IV, Active 2012 [place] [facility] solution Drug form: [facility] INJ, Q8H, Start date: 02/05/13 19:00:00, Duration: 4 doses or times, Stop date: 02/06/13 19:00:00 insulin regular 5 unit, 0.05 SUB-Q No Longer [place] 08/13/ M H 100 units/mL mL, Route: [address] human recombinant SUB-Q, Drug Ci ty form: SOLN, TID-Before Meals, PRN Blood Glucose Results, Start date: 02/05/13 17:19:00, Duration: 30 day, Stop date: 03/07/13 17:18:00 Dextrose 50% in 25 mL, Route: IVP No Longer [place] Water IV IVP, Start [address] date: 02/05/13 [facility] 17:19:00, Duration: 30 day, Stop date: 03/07/13 17:18:00, PRN Blood Glucose Results Tylenol 650 mg, 1 CO No Longer Anselmo supp, Route: [facility] 2012 [facility] CO, Drug form: City SUPP, Q4H, PRN Temperature >100.5, Start date: 02/05/13 17:16:00, Duration: 30 day, Stop date: 03/07/13 17:15:00 Phenergan 25 mg, 1 mL, IM No Longer [place] Route: IM, [address] Drug form: [place] INJ, Q4H, PRN Nausea, Start date: 02/05/13 17:16:00, Duration: 30 day, Stop date: 03/07/13 17:15:00 Vasotec 1.25 mg, 1 mL, IV No Longer [place] Route: IV, [address] Drug form: [place] INJ, Q6H, PRN Elevated BP, Start date: 02/05/13 17:15:00, Duration: 30 day, Stop date: 03/07/13 17:14:00 Lactated Ringers 1,000 mL, IV No Longer [place] Injection IV Rate: [address] 1,000 mL ml/hr, Infuse [facility] over: 12.5 hr, Route: IV, Dosing Weight 100 kg, Total Volume: 1,000, Start date: 02/05/13 17:12:00, Stop date: 03/07/13 17:11:00 Phenergan + 25 mg, 1 mL, IVPB No Longer [place] Sodium Chloride Route: IVPB, Active 2012 [facility] 0.9% IV 50 mL Q4H, PRN City Nausea & Vomiting, Start date: 02/05/13 15:20:00, Duration: 30 day, Stop date: 03/07/13 15:19:00 Zofran 4 mg, 2 mL, IVP No Longer [place] Route: IVP, [facility] 2012 [facility] Drug form: [place] INJ, Q8H, PRN Nausea & Vomiting, Start date: 02/05/13 15:20:00, Duration: 30 day, Stop date: 03/07/13 15:19:00 Benadryl 12.5 mg, 0.25 IVP No Longer [place] mL, Route: Active 2012 [facility] IVP, Drug [facility] form: INJ, Q6H, PRN Itching, Start date: 02/05/13 15:20:00, Duration: 30 day, Stop date: 03/07/13 15:19:00 naloxone 0.2 mg, 0.5 IVP No Longer [place] mL, Route: Active 2012 [facility] IVP, Drug [facility] form: INJ, Q5Min, PRN Narcotic Reversal, Start date: 02/05/13 15:19:00, Duration: 30 day, Stop date: 03/07/13 15:18:00 morphine Sulfate IV, Start IV No Longer Anselmo 30 mg date: 02/05/[address] 15:19:00, [facility] Duration: 30, 30 ml, 100 Peridex 0.12% 15 ml, Route: S&SPIT No Longer Anselmo topical liquid S&SPIT, ONCE, Active 2012 [facility] orial Drug form: [facility] LIQ, Start date: 02/05/13 11:30:00, Stop date: 02/05/13 11:30:00 Sodium Chloride 1,000 mL, IV No Longer Jazmín 0.9% IV 1,000 mL Rate: [address]use [facility] over: 20 hr, Route: IV, Dosing Weight 100 kg, Total Volume: 1,000, Start date: 02/05/13 11:21:00, Duration: 30 day, Stop date: 03/07/13 11:20:00 morphine Sulfate 2 mg, 0.2 mL, IVP No Longer Jazmín 02/05 Route: IVP, [facility] 2012 [facility] Drug form: [facility] INJ, Q5Min, Dosing Weight 100, kg, PRN Pain, Start date: 02/05/13 11:21:00, Duration: 5 doses or times, Stop date: Limited # of times, 2mg IVP q5min PRN pain score 4-6, duration: 5 doses or times, 4mg q5min PRN bennie... naloxone 0.04 mg, 0.1 IVP No Longer [place] 02/05/ mL, Route: [address] IVP, Drug [facility] form: INJ, Q2MIN, Dosing Weight 100, kg, PRN Narcotic Reversal, Start date: 02/05/13 11:21:00, Duration: 8 doses or times, Stop date: Limited # of times flumazenil 0.2 mg, 2 mL, IVP No Longer [place] Route: IVP, [address] Drug form: City INJ, PRN, Dosing Weight 100, kg, PRN Benzodiazepine Reversal, Initial dose, Start date: 02/05/13 11:21:00, Duration: 30 day, Stop date: 03/07/13 11:20:00 hydromorphone 0.5 mg, 0.25 IVP No Longer [place] 02/05[facility] H mL, Route: [address] IVP, Drug [facility] form: INJ, Q5Min, Dosing Weight 100, kg, PRN Pain Score 7-10, Start date: 02/05/13 11:21:00, Duration: 5 doses or times, Stop date: Limited # of times ondansetron 4 mg, 2 mL, IVP No Longer [facility] Route: IVP, [address] Drug form: [facility] INJ, ONCE, Dosing Weight 100, kg, PRN Nausea & Vomiting, Start date: 02/05/13 11:21:00 cefazolin 2 gm, 100 mL, IVPB No Longer An[place]mo Route: IVPB, [address] Drug form: [facility] INJ, ONCALL, Start date: 02/04/13 22:00:00, Duration: 30 day, Stop date: 03/06/13 21:59:00 naproxen 375 mg 375 mg, 1 tab, PO No Longer oral enteric PO, BID, [address] Substitution [facility] delayed-release Allowed tablet gabapentin 800 mg 800 mg, 1 tab, PO Active oral tablet PO, 2012 [facility] Allowed glimepiride 4 mg 4 mg, 1 tab, PO No Longer oral tablet PO, Daily, Active 2012 [facility] Allowed Valtrex 1 gm, PO, PO Active Daily, 2012 [facility] Allowed Toprol-XL 50 mg 25 mg, PO, PO No Longer oral tablet, Daily, Active 2012 [facility] extended release Substitution Ci ty Allowed Cozaar 25 mg oral 25 mg, 1 tab, PO No Longer tablet PO, Daily, 30 Active 2012 [facility] City Substitution Allowed, TAB Allergies, Adverse Reactions, Alerts Substance Category Reaction Severity Reaction Status Date Comments S ource type Reported Demerol HCl Assertion [facility] HYDR[facility] Assertion itching Drug Active allergy [place] [facility] Immunizations Immunization Date Site Status Last Updated Comments Sour ce Given pneumococcal [facility] Deltoid vaccine Results Order Name Results Value Reference Date Interpretation Comments Zee rce Range CHEM PANEL eGFR 77 01/13 Result Comment: [facility] eGFR is calculated using the CKD-EPI formula. In most young, healthy individuals the eGFR will be >90 mL/min/1.73m2 . The eGFR declines with age. An eGFR of 60-89 may be normal in some populations, particularly the elderly, for whom the CKD-EPI formula has not been extensively validated. Use of the eGFR is not recommended in the following populations:< br/>
Jessica viduals with unstable creatinine concentration s, including patients and those with serious co-morbid conditions.<b r/>
Patie nts with extremes in muscle mass or diet.

The data above are obtained from the National Kidney Disease Education Program (NKDEP) which additionally recommends that when the eGFR is used in patients with extremes of body mass index for purposes of drug dosing, the eGFR should be multiplied by the estimated BMI. CHEM PANEL Creatinine 0.78 0.50 - 01/13 Lvl 1.40 /2016 [facility] HEMATOLOGY Hgb 12.1 12.0 - 01/13 MH 16.0 [facility] CARDIAC CK MB Index 1.4 0.0 - 2.5 02/23 [facility] CARDIAC Total CK 156 12 - 191 02/23 ENZYMES /2014 [facility] CARDIAC CK MB 2.2 0.5 - 3.6 02/23 ENZYMES /2014 [facility] CARDIAC Troponin-I <0.02 0.00 - 02/23 ENZYMES 0.40 /2014 [facility] CHEM PANEL eGFR 80 02/23 Result Comment: [facility] eGFR is calculated using the CKD-EPI formula. In most young, healthy individuals the eGFR will be >90 mL/min/1.73m2 . The eGFR declines with age. An eGFR of 60-89 may be normal in some populations, particularly the elderly, for whom the CKD-EPI formula has not been extensively validated. Use of the eGFR is not recommended in the following populations:< br/>
Jessica viduals with unstable creatinine concentration s, including patients and those with serious co-morbid conditions.<b r/>
Patie nts with extremes in muscle mass or diet.

The data above are obtained from the National Kidney Disease Education Program (NKDEP) which additionally recommends that when the eGFR is used in patients with extremes of body mass index for purposes of drug dosing, the eGFR should be multiplied by the estimated BMI. CHEM PANEL CO2 25 24 - 32 02/23 [facility] CHEM PANEL Chloride Lvl 108 95 - 109 02/23 [facility] CHEM PANEL Potassium 3.8 3.5 - 5.1 02/23 Lvl [facility] CHEM PANEL Glucose Lvl 102 70 - 99 02/23 [facility] CHEM PANEL B/C Ratio 19 6 - 25 02/23 [facility] CHEM PANEL Sodium Lvl 139 135 - 145 02/23 [facility] CHEM PANEL Creatinine 0.8 0.5 - 1.4 02/23 Lvl [facility] CHEM PANEL BUN 15 7 - 22 02/23 [facility] CHEM PANEL Bili Total 0.3 0.2 - 1.3 02/23 [facility] CHEM PANEL Calcium Lvl 9.6 8.5 - 10.5 02/23 [facility] CHEM PANEL Total 7.3 6.4 - 8.4 02/23 [facility] CHEM PANEL AGAP 9.8 10.0 - 02/23 MH 20.0 /2014 [facility] CHEM PANEL AST 28 0 - 37 02/23 [facility] CHEM PANEL A/G Ratio 1.3 0.7 - 1.6 02/23 /2014 [facility] CHEM PANEL Globulin 3.2 2.0 - 4.0 02/23 [facility] CHEM PANEL Alk Phos 83 39 - 136 02/23 [facility] CHEM PANEL Albumin Lvl 4.1 3.5 - 5.0 02/23 [facility] CHEM PANEL ALT 40 0 - 65 02/23 [facility] HEMATOLOGY Monocytes # 0.5 0.0 - 0.8 02/23 [facility] HEMATOLOGY Lymphocytes 3.2 1.0 - 5.5 02/23 MH # /2014 [facility] HEMATOLOGY Basophils # 0.1 0.0 - 0.2 02/23 [facility] HEMATOLOGY Eosinophils 0.1 0.0 - 0.5 02/23 MH # /2014 [facility] HEMATOLOGY Segs-Bands # 2.6 1.5 - 8.1 02/23 [facility] HEMATOLOGY Eosinophils 1.7 0.0 - 4.0 02/23 [facility] HEMATOLOGY Lymphocytes 49.9 20.0 - 02/23 MH 40.0 /2014 [facility] HEMATOLOGY Basophils 0.9 0.0 - 1.0 02/23 [facility] HEMATOLOGY Monocytes 7.5 2.0 - 12.0 02/23 [facility] HEMATOLOGY Segs 40.0 45.0 - 02/23 MH 75.0 /2014 [facility] HEMATOLOGY MPV 7.4 7.4 - 10.4 02/23 /2014 [facility] HEMATOLOGY Platelet 198 133 - 450 02/23 /2014 [facility] HEMATOLOGY MCHC 33.5 32.0 - 02/23 MH 36.0 /2014 [facility] HEMATOLOGY RDW 13.1 11.5 - 02/23 MH 14.5 /2014 [facility] HEMATOLOGY MCV 95.7 80.0 - 02/23 MH 98.0 /2014 [facility] HEMATOLOGY MCH 32.0 27.0 - 02/23 MH 31.0 /2014 [facility] HEMATOLOGY RBC 4.32 4.20 - 02/23 MH 5.40 /2014 [facility] HEMATOLOGY Hgb 13.8 12.0 - 02/23 MH 16.0 /2014 [facility] HEMATOLOGY Hct 41.3 36.0 - 02/23 MH 48.0 /2014 [facility] HEMATOLOGY WBC 6.5 3.7 - 10.4 02/23 [facility] BEDSIDE Comment1 Notify 02/07 NA GLUCOSE RN/ /2012 [facility] BEDSIDE Gluc POC 110 70 - 99 02/07 HI <sup>1</sup>I [facility]: [facility] Upper Reportable Limit: 200 mg/dL. BEDSIDE Gluc POC 132 70 - 99 02/07 HI <sup>2</sup>I [facility]SE [facility] Upper Reportable Limit: 200 mg/dL. CHEMISTRY Globulin 3.0 2.0 - 4.0 02/07 Normal [facility] CHEMISTRY A/G Ratio 1.0 0.7 - 1.6 02/07 Normal MH [facility] CHEMISTRY B/C Ratio 17 6 - 25 02/07 Normal [facility] CHEMISTRY AGAP 13.1 10.0 - 02/07 Normal 20.0 [facility] CHEMISTRY Bili Total 0.5 0.2 - 1.3 02/07 Normal [facility] CHEMISTRY Total 6.0 6.4 - 8.4 02/07 LOW [facility] CHEMISTRY BUN 15 7 - 22 02/07 Normal [facility] CHEMISTRY CO2 24 24 - 32 02/07 Normal MH [facility] CHEMISTRY Albumin Lvl 3.0 3.5 - 5.0 02/07 LOW MH [facility] CHEMISTRY Glucose Lvl 114 70 - 99 02/07 HI <sup>7</sup>[facility] Data: [facility] reference range values reflect the clinical guidelines
of the [employer]. CHEMISTRY AST 39 0 - 37 02/07 HI [facility] CHEMISTRY eGFR 66 02/07 NA <sup>4</sup>R [facility] Comment: The [facility] eGFR is calculated using the CKD-EPI formula. In most young, healthy individuals the eGFR will be >90 mL/min/1.73m2 . The eGFR declines with age. An eGFR of 60-89 may be normal in some populations, particularly the elderly, for whom the CKD-EPI formula has not been extensively validated. Use of the eGFR is not recommended in the following populations:& lt;br/>
I ndividuals with unstable creatinine concentration s, including patients and those with serious co-morbid conditions.<b r/>
Patie nts with extremes in muscle mass or diet.

The data above are obtained from the National Kidney Disease Education Program (NKDEP) which additionally recommends that when the eGFR is used in patients with extremes of body mass index for purposes of drug dosing, the eGFR should be multiplied by the estimated BMI. CHEMISTRY Creatinine 0.9 0.5 - 1.4 08/ Normal MH Lvl /2012 [facility] CHEMISTRY Calcium Lvl 8.8 8.5 - 10.5 08 Normal [facility] CHEMISTRY Alk Phos 76 39 - 136 08/ Normal /2012 [facility] CHEMISTRY ALT 39 0 - 65 08/ Normal /2012 [facility] CHEMISTRY Sodium Lvl 143 135 - 145 08/ Normal /2012 [facility] CHEMISTRY Chloride Lvl 111 95 - 109 02/07 HI MH [facility] CHEMISTRY Potassium 5.1 3.5 - 5.1 08 Normal MH Lvl /2012 [facility] HEMATOLOGY Eosinophils 0.1 0.0 - 0.5 08/ Normal MH # /2012 [facility] HEMATOLOGY Monocytes # 0.5 0.0 - 0.8 02/07 Normal [facility] HEMATOLOGY Basophils 0.1 0.0 - 1.0 02/07 Normal MH /2012 [facility] HEMATOLOGY Lymphocytes 2.0 1.0 - 5.5 02/07 Normal MH # /2012 [facility] HEMATOLOGY Segs-Bands # 3.1 1.5 - 8.1 02/07 Normal [facility] HEMATOLOGY Basophils # 0.0 0.0 - 0.2 / Normal [facility] HEMATOLOGY Monocytes 8.2 2.0 - 12.0 02/07 Normal [facility] HEMATOLOGY Segs 53.9 45.0 - 02/07 Normal MH 75.0 [facility] HEMATOLOGY Lymphocytes 35.3 20.0 - 08 Normal MH 40.0 [facility] HEMATOLOGY Eosinophils 2.5 0.0 - 4.0 / Normal [facility] HEMATOLOGY RBC 3.26 4.20 - 08 LOW MH 5.40 /2012 [facility] HEMATOLOGY WBC 5.7 3.7 - 10.4 02/07 Normal MH /2012 [facility] HEMATOLOGY MCV 86.7 81.0 - 08 Normal MH 99.0 /2012 [facility] HEMATOLOGY MCHC 31.6 32.0 - 08 LOW MH 36.0 [facility] HEMATOLOGY RDW 16.9 11.5 - 08 HI 14.5 /2012 [facility] HEMATOLOGY MCH 27.4 27.0 - 02/07 Normal MH 31.0 /2012 [facility] HEMATOLOGY Hct 28.3 36.0 - 08 LOW MH 48.0 /2012 [facility] HEMATOLOGY Hgb 8.9 12.0 - 08 LOW 16.0 /2012 [facility] HEMATOLOGY MPV 8.1 7.4 - 10.4 02/07 Normal [facility] HEMATOLOGY Platelet 147 133 - 450 02/07 Normal [facility] BEDSIDE Gluc POC 147 70 - 99 02/07 HI <sup>3</sup>I GLUCOSE Lifscn /2012 nterpretive [facility] TESTING Data: [facility] Upper Reportable Limit: 200 mg/dL. BEDSIDE Comment1 Notify 02/06 NA GLUCOSE RN/MD [facility] CHEMISTRY Bili Total 0.4 0.2 - 1.3 02/06 Normal [facility] CHEMISTRY Total 5.9 6.4 - 8.4 02/06 LOW Protein [facility] CHEMISTRY BUN 15 7 - 22 02/06 Normal [facility] CHEMISTRY CO2 23 24 - 32 02/06 LOW [facility] CHEMISTRY Albumin Lvl 3.3 3.5 - 5.0 02/06 LOW [facility] CHEMISTRY Glucose Lvl 190 70 - 99 02/06 HI <sup>8</sup>I nterpretive [facility] Data: [facility] reference range values reflect the clinical guidelines
of the [employer]. CHEMISTRY Chloride Lvl 108 95 - 109 02/06 Normal [facility] CHEMISTRY Potassium 5.0 3.5 - 5.1 02/06 Normal MH Lvl /2012 [facility] CHEMISTRY Sodium Lvl 142 135 - 145 02/06 Normal [facility] CHEMISTRY Alk Phos 95 39 - 136 02/06 Normal [facility] CHEMISTRY AST 67 0 - 37 02/06 HI [facility] CHEMISTRY ALT 74 0 - 65 02/06 HI [facility] CHEMISTRY eGFR 52 02/06 NA <sup>5</sup>R [facility] Comment: The [facility] eGFR is calculated using the CKD-EPI formula. In most young, healthy individuals the eGFR will be >90 mL/min/1.73m2 . The eGFR declines with age. An eGFR of 60-89 may be normal in some populations, particularly the elderly, for whom the CKD-EPI formula has not been extensively validated. Use of the eGFR is not recommended in the following populations:& lt;br/>
I ndividuals with unstable creatinine concentration s, including patients and those with serious co-morbid conditions.<b r/>
Patie nts with extremes in muscle mass or diet.

The data above are obtained from the National Kidney Disease Education Program (NKDEP) which additionally recommends that when the eGFR is used in patients with extremes of body mass index for purposes of drug dosing, the eGFR should be multiplied by the estimated BMI. CHEMISTRY Creatinine 1.1 0.5 - 1.4 02/06 Normal MH Lvl /2012 [facility] CHEMISTRY Calcium Lvl 8.8 8.5 - 10.5 02/06 Normal MH [facility] CHEMISTRY A/G Ratio 1.3 0.7 - 1.6 02/06 Normal [facility] CHEMISTRY Globulin 2.6 2.0 - 4.0 02/06 Normal [facility] CHEMISTRY B/C Ratio 14 6 - 25 02/06 Normal [facility] CHEMISTRY AGAP 16.0 10.0 - 08 Normal MH 20.0 [facility] HEMATOLOGY RBC Morph Normal 02/06 Normal (02/06/2013 03:34:00) /2012 [facility] HEMATOLOGY Eosinophils 0.0 0.0 - 4.0 02/06 Normal MH [facility] HEMATOLOGY Basophils 0.1 0.0 - 1.0 02/06 Normal [facility] HEMATOLOGY Segs 82.7 45.0 - 02/06 HI MH 75.0 [facility] HEMATOLOGY Lymphocytes 1.1 1.0 - 5.5 02/06 Normal MH # /2012 [facility] HEMATOLOGY Eosinophils 0.0 0.0 - 0.5 08/ Normal MH # /2012 [facility] HEMATOLOGY Monocytes 6.5 2.0 - 12.0 02/06 Normal [facility] HEMATOLOGY Segs-Bands # 8.7 1.5 - 8.1 02/06 HI MH /2012 [facility] HEMATOLOGY Monocytes # 0.7 0.0 - 0.8 02/06 Normal [facility] HEMATOLOGY Basophils # 0.0 0.0 - 0.2 / Normal MH /2012 [facility] HEMATOLOGY Plt Morph Normal 02/06 Normal (02/06/2013 03:34:00) /2012 [facility] HEMATOLOGY Lymphocytes 10.7 20.0 - 02/06 LOW MH 40.0 /2012 [facility] HEMATOLOGY MPV 8.2 7.4 - 10.4 02/06 Normal MH /2012 [facility] HEMATOLOGY Platelet 184 133 - 450 02/06 Normal MH /2012 [facility] HEMATOLOGY MCHC 31.5 32.0 - 08 LOW MH 36.0 /2012 [facility] HEMATOLOGY RDW 16.7 11.5 - 02/06 HI MH 14.5 /2012 [facility] HEMATOLOGY MCV 86.1 81.0 - 02/06 Normal MH 99.0 /2012 [facility] HEMATOLOGY MCH 27.1 27.0 - 02/06 Normal MH 31.0 /2012 [facility] HEMATOLOGY Hct 31.4 36.0 - 02/06 LOW MH 48.0 /2012 [facility] HEMATOLOGY Hgb 9.9 12.0 - 02/06 LOW MH 16.0 /2012 [facility] HEMATOLOGY RBC 3.65 4.20 - 02/06 LOW MH 5.40 /2012 [facility] HEMATOLOGY WBC 10.6 3.7 - 10.4 02/06 HI MH /2012 [facility] URINALYSIS UA 0.1 - 1.0 02/05 NA Urobilinogen /2012 [facility] URINALYSIS UA Mucus Few /LPF None Seen 02/05 NA *NA* /2012 [facility] (02/05/2013 13:20:00) Ci ty URINALYSIS UA Spec Grav 1.017 <=1.030 02/05 Normal [facility] URINALYSIS UA Turbidity Clear Clear 02/05 Normal (02/05/2013 13:20:00) [facility] URINALYSIS UA Color Yellow Yellow 02/05 NA *NA* /2012 [facility] (02/05/2013 13:20:00) Ci ty URINALYSIS UA pH 5.0 5.0 - 8.0 02/05 Normal [facility] URINALYSIS UA Ketones Negative mg/dL Negative 02/05 NA *NA* /2012 [facility] (02/05/2013 13:20:00) Ci ty URINALYSIS UA Protein Negative mg/dL Negative 02/05 Normal (02/05/2013 13:20:00) [facility] URINALYSIS UA Glucose Negative mg/dL Negative 02/05 NA *NA* /2012 [facility] (02/05/2013 13:20:00) Ci ty URINALYSIS UA Bili Negative Negative 02/05 NA *NA* /2012 [facility] (02/05/2013 13:20:00) Ci ty URINALYSIS UA Blood Negative Negative 02/05 Normal (02/05/2013 13:20:00) [facility] URINALYSIS UA Sq Epi Few /LPF Few 02/05 NA *NA* /2012 [facility] (02/05/2013 13:20:00) Ci ty URINALYSIS UA Leuk Est Moderate Negative 02/05 ABN *ABN* /2012 [facility] (02/05/2013 13:20:00) Ci ty URINALYSIS UA RBC 1 0 - 2 02/05 Normal [facility] URINALYSIS UA Bacteria Occasional /HPF None Seen 02/05 [facility] *NA* [facility] (02/05/2013 13:20:00) Ci ty URINALYSIS UA Nitrite Positive Negative 02/[address] [facility] *ABN* /2012 [facility] (02/05/2013 13:20:00) Ci ty URINALYSIS UA WBC 8 0 - 5 02/05 HI [facility] BLOOD BANK ABO/Rh A POS 02/05 Unknown RESULTS [facility] BLOOD BANK Antibody Negative 02/05 Normal RESULTS Scrn (02/05/2013 11:35:00) [facility] CHEMISTRY Vitamin D, 25 30 - 100 01/23 LOW <sup>10</sup> 25-OH, Interpretive Memori al Data: [facility] Reference range is based on recommendatio ns in the Endocrine<br/ >Society Clinical Practice Guideline (J Clin Endocrinol Metab
201 1;96:1911-193 0) CHEMISTRY PTH Intact 61.3 11.1 - 01/23 Normal 79.5 [facility] CHEMISTRY Sodium Lvl 138 135 - 145 01/23 Normal [facility] CHEMISTRY Glucose Lvl 176 70 - 99 01/23 HI <sup>9</sup>I nterpretive [facility] Data: [facility] reference range values reflect the clinical guidelines
of the [employer]. CHEMISTRY Potassium 4.3 3.5 - 5.1 01/23 Normal Lvl /2012 [facility] CHEMISTRY BUN 19 7 - 22 01/23 Normal /2012 [facility] CHEMISTRY Creatinine 1.0 0.5 - 1.4 01/23 Normal Lvl [facility] CHEMISTRY eGFR 58 01/23 NA <sup>6</sup>R [facility] Comment: The [facility] eGFR is calculated using the CKD-EPI formula. In most young, healthy individuals the eGFR will be >90 mL/min/1.73m2 . The eGFR declines with age. An eGFR of 60-89 may be normal in some populations, particularly the elderly, for whom the CKD-EPI formula has not been extensively validated. Use of the eGFR is not recommended in the following populations:& lt;br/>
I ndividuals with unstable creatinine concentration s, including patients and those with serious co-morbid conditions.<b r/>
Patie nts with extremes in muscle mass or diet.

The data above are obtained from the National Kidney Disease Education Program (NKDEP) which additionally recommends that when the eGFR is used in patients with extremes of body mass index for purposes of drug dosing, the eGFR should be multiplied by the estimated BMI. 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 COMPARISON: None TECHNIQUE: Limited sonographic evaluation of the right groi n was performed. FINDINGS: The right common femoral art kaitlynn and right common femoral vein demonstrate normal flow waveforms. No evidence of a pseudoaneurysm or AV fistula. Small hypoechoic collection (2.9 x 1 cm) anterior to the right EDGER MACHINE SETTER. IMPRESSION: Small right inguinal hematoma. No pseudoaneurysm . SL: [id number] Chest 2 views DX Exam: Chest X-ray 2 views : 02/23/2016 [facility] [place] CLINICAL HISTORY: M06.4 Inflammatory polyarth ropathy. Comparison: February 23, 2015. Findings: PA and lateral views of the chest are obtained. The heart size is normal. Th e hilar and mediastinal structures are normal. The lungs are clear without consolidation or effusion. No acute bony abnormality. Pulmonary vascularity is normal. Impression: No active disease . Wrist 2 views Bilateral wrist 4 views, 02/23/2016 02/23/2016 [facility] [place] bilateral DX HISTORY: Inflammatory polyarthropathy. AP and lateral views of the right [...] or bone destruction. 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 Chest 1view DX PROCEDURE: Chest 1view 02/23/2015 [facility] REASON FOR EXAM: See Clinic Indication CLINICAL INDICATION: Chest pain COMPARISON: 01/23/2013. FINDINGS: No acute process. No focal consolidation, pleural effusion, or pneumothorax. Stable cardiac silhouette and mediastinum. SL: 12 Stomach UGI (water HISTORY: Abdominal fullness 02/06/2013 [facility] soluble contrast) FINDINGS: Iodinated contrast was swallowed by mouth and the abdomen was evaluated under fluoroscopy. Static images were obtained for the patient's record. There normal passage of cont rast from the esophagus into the gastric pouch and into the small bowel. There are no signs of extraluminal contrast leak. Contrast reached the proximal ileum after 20 minute s likely past the JJ anastomosis. There are no s igns of small bowel dilation IMPRESSION: Patent gastric b ypass. Contrast reached the proximal ileum at 20 minutes likely past the JJ anastomosis Fluoro time: 0.1 minutes Chest 2 views CHEST PA AND LATERAL 01/23/2013 [facility] Clinical history: 67-year-old with cough. Comparison: None. Findings: The lungs are expanded and n o infiltrate, mass or pleural effusion seen. The cardiomediastinal structures are within normal limits. IMPRESSION: There is no evidence for active cardio pulmonary disease. Consultation Notes No Data Provided for This Section Discharge Summaries No Data Provided for This Section History and Physicals No Data Provided for This Section Vital Signs Vital Sign Value Date Comments Source Temperature Oral (F) 98.6 F 01/14/2017 [place] Rate 18 01/14/2017 [facility] Heart Rate 59 01/14/2017 [place] Systolic (mm Hg) 136 01/14/2017 [place] Diastolic (mm Hg) 73 01/14/[address] [facility] [address] Temperature Oral (F) 98.0 F 01/14/2017 [place] Heart Rate 60 01/14/2017 [place] Systolic (mm Hg) 150 01/14/2017 [place] Diastolic (mm Hg) 80 01/14/[address] [facility] [address] Respitory Rate 18 01/14/2017 [facility] Temperature Oral (F) 98.2 F 01/14/2017 [place] Respitory Rate 18 01/14/2017 [place] Heart Rate 60 01/14/2017 [place] Systolic (mm Hg) 111 01/14/2017 [place] Diastolic (mm Hg) 67 01/14/[address] [facility] [address] Weight 82 01/14/2017 [facility] BMI Calculated 27.51 01/13/2017 [facility] Weight 75 01/13/2017 [facility] Height 165.1 cm 01/13/2017 [place] Respitory Rate 18 02/23/2015 [place] Heart Rate 64 02/23/2015 [place] Temperature Oral (F) 98.2 F 02/23/2015 [place] Systolic (mm Hg) 154 02/23/2015 [place] Diastolic (mm Hg) 65 02/23/[address] [facility] [address] Temperature Oral (F) 98.0 F 02/23/2015 [place] Height 157.48 cm 02/23/2015 [place] Systolic (mm Hg) 153 02/23/2015 [place] Diastolic (mm Hg) 76 02/23/[address] Heart Rate 71 02/23/2015 [place] Respitory Rate 18 02/23/2015 [place] BMI Calculated 32.07 02/23/2015 [place] Weight 79.545 02/23/2015 [facility] Diastolic (mm Hg) 54 02/07/2013 [facility] Respitory Rate 18 02/07/2013 [facility] ity Systolic (mm Hg) 124 02/07/2013 [facility] Temperature Oral (F) 98.1 F 02/07/2013 [facility] Heart Rate 67 02/07/2013 [facility] y Diastolic (mm Hg) 51 02/07/2013 [facility] Respitory Rate 17 02/07/2013 [facility] ity Heart Rate 69 02/07/2013 [facility] y Temperature Oral (F) 98.4 F 02/07/2013 [facility] Systolic (mm Hg) 114 02/07/2013 [facility] Systolic (mm Hg) 144 02/07/2013 [facility] Respitory Rate 18 02/07/2013 [facility] it Diastolic (mm Hg) 71 02/07/2013 [facility] Temperature Oral (F) 98.2 F 02/07/2013 [facility] Heart Rate 81 02/07/2013 [facility] Weight 100 01/23/2013 [facility] Height 165.1 cm 01/23/2013 [facility] Encounters Location Location Encounter Encounter Reason Attending ADM DC Stat us Source Details Type Number For Provider Date Date Visit [facility] Inpatient [id number] MINO 02/05 02/07 Disc harg [facility] 3 ANSELMO ed [facility] EC [id number] Grant Cesta 02/23 02/23 [facility] Outpt Diag [id number] Edward 02/22 02/23 [facility] 0 Tono /2015 S aria Rene Jr [facility] [id number] [place] 01/13 01/14 [facility] [facility] 5 Lalitha [facility] Procedures Procedure Code Date Perfomer Comments Source Gastric bypass [id number] [facility] [place] [facility] operation 3 [facility] Gastric bypass [id number] [facility] operation 3 [facility] Ankle<sup>1</sup> [id number] ankle fusion [facility] [place] [place] Appendectomy [id number] [facility] [place] [place] Carpal tunnel release [id number] [facility] [place] [place] Catheterization of [id number] [place] [facility] left heart Cervical spinal [id number] [facility] [place] section [id number] [facility] [place] [place] Cholecystectomy [id number] [facility] [place] Decompression [id number] [facility] [place] laminectomy of lumbar Audi d, spine [place] H/O: hysterectomy [id number] [facility] [place] [place] Knee replacement [id number] [facility] [place] [place] Percutaneous [id number] [facility] insertion of drug eluting stent into coronary artery using fluoroscopic guidance Ankle <sup>1</sup> [id number] 1ankle fusion [address] Appendectomy [id number] [facility] Carpal tunnel release [id number] [facility]ervical [id number] [facility] section [id number] [facility] Cholecystectomy [id number] [facility] Decompression [id number] [facility] laminectomy of lumbar Cit [place] spine H/O: [facility] [id number] [facility] [id number] [facility] Assessment and Plan Assessment and Plan Date Source Extracted from:Title: Clinical Document 01/14/2017 [facility] Author: Alyssa Adkins MD Date: 01/14/17 Admitting diagnosis: 1. Exertional shortness of breath. 2. Angina equivalent. Discharge diagnosis: 1. Exertional shortness of breath. 2. Angina equivalent. 3. CAD:Severe LAD stenosis with FFR of 0.79 status post PCI with Xience 2.7518 4. CAD: 70% RCA stenosis Diet: AHA Medication list: Please review med recs Physical activity: Avoid extremes of [place] to follow-up Follow up: In 2-3 in our office Procedures performed: Coronary angiogram FFR PCI Hospitalization course: Patient presented for outpatient coronar y angiogram. Angiogram showed 70% stenosis of proximal LAD that was further investigated with FFR that showed result of 0.79. The patient underwent successful P CI. RCA PCI will be performed in a late r date. Is being discharged home today. Should follow-up with Dr. Doty in 2 weeks. Should refrain from strenuous physical activities until seen by Dr. Doty. P rescriptions were given including aspiri n and Brilinta with 11 refills that she should be taking for at least one year. Addendum by Alyssa Adkins MD on 01/14/2017 10:07 Right groin arterial Doppler ordered due to hematoma, pain and bruit for investigation of pseudoaneurysm Plan of Care No Data Provided for This Section Social History Social History Date Source Social History TypeResponse 01/13/2017 [facility] Alcohol Current, Frequency: 1-2 times per year. Smoking Status Never smoker; Exposure to Tobacco Smoke None; Cigarette Smoking Last 365 Days No; Reg Smoking Cessation Counseling No Social History TypeResponse 02/23/2015 SHELLIE Johnson Smoking Status Never smoker; Exposure to Tobacco Smoke None; Cigarette Smoking Last 365 Days No; Reg Smoking Cessation Counseling No Family History No Data Provided for This Section Advance Directives No Data Provided for This Section Functional Status No Data Provided for This Section
--- OUTSIDE RECORDS SUMMARY | 2019-12-16 14:43 | XMS REPORT | Continuity of Care Document ---
:1945 Author Organization [facility] t Address [address] [place] [address] Care Team Providers Name Role Phone Eduardo Williamson MD Primary Care Physician Lucila RAMOS Attending Clinician Unavailable Simone Meneses MD Attending Clinician Feliciano Doty Attending Clinician Kaushik Power Jr Attending Clinician Reyes Dejesus Attending Clinician Payers Payer Name Policy Policy Number Effective Expiration Source Type Date Date MEDICAREMEDICARE PART xxxxxxxxxxx 1999 [place] luke A AND 00:00:00 Jew [id number]/06/1998 [place] [facility] BCBSBCBS CHOICE xxxxxxxxxxxx 2016 [place] PPO/FEDERAL EMPL 00:00:00 Methodis t [id number] Problems Condition Condition Condition Status Onset Resolution Last Treating Co mments Source Name Details Category Date Date Treatment Clinician Date History of History of Disease Active Eleanor soni coronary coronary 9-10 Method i artery artery 00:00: st stent stent 00 placement placement Coronary Coronary Disease Active Overview: Ross ti artery artery 2-12 Added Methodi disease disease 00:00: automatic st involving involving 00 ally from [place] request coronary coronary for artery of artery of surgery [place] [id number] heart heart without without angina angina pectoris pectoris CAD in CAD in Disease Active [place] pilot point pilot point 2-06 Methodi artery artery 00:00: st 00 Essential Essential Disease Active Diane rose hypertensi hypertensi 2-06 Me thodi on on 00:00: st 00 Stented Stented Disease Active [place] coronary coronary 2-06 Method i artery artery 00:00: st 00 UNK Diagnosis Active 2017-02-03 Mem oria 01-02 09:11:00 l UNK 00:00: [place] 00 Active 01/02/2017 [facility] M06.4 - Diagnosis Active 2016-02-23 Me moria INFLAMMATO 02-22 11:14:00 l RY M06.4 - 00:01: [place] POLYARTHRO INFLAMMATO 00 TIMI RY POLYARTHRO TIMI Active 02/23/2016 [facility] [place] CHEST PAIN Diagnosis Active 2015-02-23 Memoria 02-23 16:43:00 l CHEST 00:00: Anastacio PAIN 00 Active 02/23/2015 [facility] MORBID Diagnosis Active 2013-02-07 Mem oria OBESITY 01-10 09:42:00 l MORBID 00:00: Anastacio OBESITY 00 Active 01/10/2013 [facility] Disorder Problem Active 2017-01-17 Mem oria of lumbar 01-04 00:19:23 l disc Disorder 00:00: Keaton n (disorder) of lumbar 00 disc (disorder) Active 01/04/2011 Problem 01/17/2017 Data migrated from [employer] on 11/25/14.Uriah a migrated from [employer] on 11/25/14. [facility] [place] Lumbosacra Problem Active 2017-01-17 M emoria l 01-04 00:19:23 l spondylosi 00:00: Keaton n s without Lumbosacra 00 myelopathy l (disorder) spondylosi s without myelopathy (disorder) Active 01/04/2011 Problem 01/17/2017 Data migrated from [employer] on 11/25/14.Uriah a migrated from [employer] on 11/25/14. [facility] [place] Spinal Problem Active 2017-01-17 Memor ia stenosis 01-04 00:19:23 l of lumbar Spinal 00:00: Ramona nn region stenosis 00 (disorder) of lumbar region (disorder) Active 01/04/2011 Problem 01/17/2017 Data migrated from [employer] on 11/25/14.Uriah a migrated from [employer] on 11/25/14. SHELLIE Garn[facility] Osteoarthr Problem Active 2017-01-17 M emoria itis of 11-27 00:19:23 l foot joint 00:00: Keaton n (disorder) Osteoarthr 00 itis of foot joint (disorder) Active 11/27/2008 Problem 01/17/2017 Data migrated from [employer] on 11/25/14.Uriah a migrated from [employer] on 11/25/14. SHELLIE [facility]ett [facility]oarthr Problem [facility] 00:19:23 l knee 00:00: Anastacio (disorder) Osteoarthr 00 itis of knee (disorder) Active 11/27/2008 Problem 01/17/2017 Data migrated from [employer] on 11/25/14.Uriah a migrated from [employer] on 11/25/14. SHELLIE Garnett [facility] Pain, Pain, Diagnosis Active [facility] shoulder, Ko a[facility] left left l Outpati ent Clinics Right foot Right foot Diagnosis Active [facility] Other Other Diagnosis Active [facility] displaced displaced Luke s - fracture fracture Memori a of upper of upper l end of end of Outpati left left ent humerus, humerus, Clinic s subsequent subsequent encounter encounter for for fracture fracture with with routine routine healing healing Closed Closed Diagnosis Active [facility] nondisplac nondisplac Sandra kes - ed ed Memoria fracture fracture l of fifth of fifth Outpat i metatarsal metatarsal en t bone of bone of Clinics right foot right foot with with routine routine healing, healing, subsequent subsequent encounter encounter Sleep Problem Resolve 2017-01-17 Ko arias apnea d 00:19:23 l (finding) Sleep Keaton n apnea (finding) Resolved Problem 01/17/2017 SHELLIE [facility] Sleep Problem Resolve 2013-02-09 Ko arias apnea d 20:24:01 l Sleep Anastacio apnea Resolved Problem 02/09/2013 [facility] Anxiety Problem Active 2017-01-17 Ko arias (finding) 00:19:23 l Anxiety Anastacio (finding) Active Problem 01/17/2017 SHELLIE [facility] Diabetes Problem Active 2017-01-17 Mem oria mellitus 00:19:23 l (disorder) Diabetes He rmann mellitus (disorder) Active Problem 01/17/2017 [facility] [place] Hypertensi Problem Active 2017-01-17 M emoria ve 00:19:23 l disorder, [place] systemic Hypertensi arterial ve (disorder) disorder, systemic arterial (disorder) Active Problem 01/17/2017 [facility] [place] Hyperchole Problem Active 2017-01-17 M emoria sterolemia 00:19:23 l (disorder) Keaton n Hyperchole sterolemia (disorder) Active Problem 01/17/2017 [facility] [place] Hypothyroi Problem Active 2017-01-17 M emoria dism 00:19:23 l (disorder) Keaton n Hypothyroi dism (disorder) Active Problem 01/17/2017 [facility] [place] Morbid Problem Active 2017-01-17 Memor ia obesity 00:19:23 l (disorder) Morbid Herm nicolasa obesity (disorder) Active Problem 01/17/2017 [facility] [place] Anxiety Problem Active 2013-02-09 Ok arias 20:24:01 l Anxiety [place] Active Problem 02/09/2013 [facility] DM - Problem Active 2013-02-09 Memor ia Diabetes 20:24:01 l mellitus DM - Anastacio Diabetes mellitus Active Problem 02/09/2013 [facility] High blood Problem Active 2013-02-09 M emoria pressure 20:24:01 l High [place] blood pressure Active Problem 02/09/2013 [facility] Hyperchole Problem Active 2013-02-09 M emoria sterolemia 20:24:01 l [place] Hyperchole sterolemia Active Problem 02/09/2013 [facility] Hypothyroi Problem Active 2013-02-09 M emoria dism 20:24:01 l An[place] Hypothyroi dism Active Problem 02/09/2013 [facility] Morbid Problem Active 2013-02-09 Memor ia obesity 20:24:01 l Morbid [place] obesity Active Problem 02/09/2013 [facility] MORBID Diagnosis Active 2013-02-07 Mem oria OBESITY 09:42:00 l MORBID Anastacio OBESITY Active [facility] Discharge Problem 2014-0 2015-02-26 2015-02-26 Memoria Diagnosis: 8-31 05:57:05 05:57:05 l Chest pain 05:00: Keaton n Discharge 00 Diagnosis: Chest pain 02/23/2015 02/26/2015 [facility] Allergies, Adverse Reactions, Alerts Allergy Allergy Status Severity Reaction(s) Onset Inactive Treating Comm ents Source Name Type Date Date Clinician Elva Mooneyi Active Itching [place] ty to 215 [facility] adverse 00:00: st reaction 00 s to drug Propoxyp Propensi Active [place] to 206 [facility] Napsylat adverse 00:00: st e reaction 00 s to drug Demerol Adverse Active Info Not [facility] Reaction Available [facility] Demerol Demerol Active Memoria HCl HCl l [place] HYDROcod HYDROcod Active Memori a one one l [place]acio Family History Family Member Diagnosis Comments Start Date Stop Date Source Natural brother Hearing loss [place] [facility] Natural father Leukemia [facility] thodist Natural mother COPD [facility] thodist Natural mother Stroke [facility] thodist Natural sister Hyperlipidemia [place] Natural sister Hypertension [place] [facility] Natural sister Stroke [place] [facility] Social History Social Habit Start Date Stop Date Quantity Comments Source Sex Assigned At [facility] ethodist Alcohol intake 2017-12-18 2017-12-18 Current [facility] thodist 00:00:00 00:00:00 non-drinker of alcohol (finding) Social History 2017-01-13 2017-01-13 [facility] 12:30:09 12:30:09 Smoking Status Start Date Stop Date Source Social History [facility] Medications Ordered Filled Start Stop Current Ordering Indication Dosage Frequency Signature Comments Components Source Medication Medication Date Date Medication? Clinician (SIG) Name Name metoprolol 2020-0 Yes 50mg Q.5D Take 1 [place] tartrate 5-26 tablet (50 Metho di (LOPRESSOR) 00:00: mg total) s t 50 mg 00 by mouth 2 tablet (two) times a day. metoprolol 2020-0 2020- No 50mg Q.5D Take 1 [place] tartrate 4-14 05-26 tablet (50 Meth kate (LOPRESSOR) 00:00: 00:00 mg total) st 50 mg 00 :00 by mouth 2 tablet (two) times a day. metoprolol 2020-0 2020- No TAKE 1 [place] tartrate 1-16 04-14 TABLET BY Metho di (LOPRESSOR) 00:00: 00:[address] 50 mg 00 :00 TWICE A tablet DAY metoprolol 2018-06 2020- No TAKE 1 [place] tartrate 0-07 01-16 TABLET BY Metho di (LOPRESSOR) 00:00: 00:[address] 50 mg 00 :00 TWICE A tablet DAY metoprolol 2019- No TAKE 1 [place] tartrate 7-11 10-06 TABLET BY Metho di (LOPRESSOR) 00:00: 00:[address] 50 mg 00 :00 TWICE A tablet DAY metoprolol 2019- No TAKE 1 [place] tartrate 7-08 07-10 TABLET BY Metho di (LOPRESSOR) 00:00: 00:[address] 50 mg 00 :00 TWICE A tablet DAY metoprolol 2019- No 50mg Q.5D Take 1 [place] tartrate 5-08 02-06 tablet (50 Meth kate (LOPRESSOR) 00:00: 00:00 mg total) st 50 mg 00 :00 by mouth 2 tablet (two) times a day. Valacyclovi Valacyclovi Yes [place] [address] [facility] HCl r HCl 2-13 [facility] Atorvastati Atorvastati Yes [place] [address] [facility] n Calcium n Calcium 2-13 [facility] Aspir-81 -81 0 Yes [place] [address] [facility] 2-13 [facility] Zofran Zofran Yes [place] [address] 2-13 [place] [facility] needed [facility] - [facility]ics Victoza Victoza Yes [place] 1.[address] 2[facility]13 [facility] Biotin Biotin Yes [place] as [facility] 2[facility]13 [place] [facility] - [facility]: [facility] Losartan Losartan Yes [place] [address] [facility] [address] Potassium Potassium 2-13 [facility]: [facility] Clin[facility] Metformin Metformin Yes [place] [address] [address] HCl HCl 2-13 [place] with a [facility] - 00:00: meal Memoria 00 l Outpati ent Clinics Synthroid Synthroid 2018- Yes [place] [address] 2-13 [place] [facility] an [facility] - 00:00: empty Memoria 00 stomach in l the Outpati morning ent Clinics clopidogrel 2017-0 2019- No 75mg QD Take 1 Diane rose (PLAVIX) 75 9-11 09-11 tablet (75 M ethodi mg tablet 00:00: 23:59 mg total) st 00 :00 by mouth daily. aspirin Yes 81mg QD Take 81 mg [place] (ECOTRIN) 3-06 by mouth Method i 81 MG 16:17: daily. st enteric 46 coated tablet MULTIVIT-DE Yes Take by Diane rose NERALS/FERR 3-06 mouth. Method i OUS FUM 16:17: st (MULTI 46 VITAMIN ORAL) LACTOBACILL Yes Take by Diane rose US 3-06 mouth. Methodi ACIDOPHILUS 16:17: st (PROBIOTIC 46 ORAL) hydroxychlo Yes 200mg Q.5D Take 200 [place] roquine 2-01 mg by Methodi (PLAQUENIL) 00:00: mouth 2 st 200 mg 00 (two) tablet times a day. amitriptyli Yes 100mg QD 100 mg Diane rose ne (ELAVIL) 07-08 nightly. Meth kate 50 MG 00:00: st tablet 00 colchicine 2016-06 Yes Anish 0.6 mg 2-28 Methodi tablet 00:00: st 00 SYNTHROID 2016-06 Yes Anish 50 mcg 2-25 Methodi tablet 00:00: st 00 losartan 2016-06 Yes Anish (COZAAR) 50 2-25 Methodi MG tablet 00:00: st 00 metFORMIN 2016-06 Yes Anish XR 2-25 Methodi (GLUCOPHAGE 00:00: st -XR) 500 mg 00 24 hr tablet atorvastati 2016-06 Yes Mary n n (LIPITOR) 2-13 Methodi 10 MG 00:00: st tablet 00 valACYclovi 2016-06 Yes Mary n r (VALTREX) 2-08 Methodi 1000 MG 00:00: st tablet 00 ONETOUCH 2016-06 Yes Anish ULTRA TEST 1-29 Methodi strip test 00:00: st strips 00 BD 2016-06 Yes Anish ULTRA-FINE 1-28 Methodi VERN PEN 00:00: st NEEDLES 32 00 gauge x 5/32" needle VICTOZA 2016-06 Yes Oconnell 3-KJ 0.6 1-27 Methodi mg/0.1 mL 00:00: st (18 mg/3 00 mL) pen injector Nitroglycer Yes 0.4 mg = 1 Memoria in 0.4 MG -22 tab, SL, l Sublingual 14:49: Q5Min, PRN H ermann Tablet 47 Chest [Nitrostat] Pain, # 30 tab, 0 Refill(s) atorvastati Yes 20 mg = 2 M emoria n 10 mg 7-22 tab, PO, l oral tablet 14:49: Bedtime, # [place] 00 30 tab, 3 Refill(s) ticagrelor Yes 90 mg = 1 Me moria 90 mg oral 7-22 tab, PO, l tablet 14:49: Q12H, # 60 Ramona nn 00 tab, 11 Refill(s) aspirin 81 Yes 81 mg = 1 Me moria mg tablet, 7-22 tab, PO, l enteric 14:49: Daily, # Keaton n coated 00 30 tab, 11 Refill(s) metoprolol Yes 50 mg = 1 Me moria tartrate 50 7-22 tab, PO, l mg oral 14:49: Q12H, # 60 Herm nicolasa tablet 00 tab, 3 Refill(s) Hydroxychlo No Notes: [place] roquine 01-14 (Same as: l Sulfate 200 14:00: Plaquenil) [place] MG Oral 00 Hydroxychl Tablet oroquine sulfate 200 mg = 155 mg hydroxychl oroquine base. If treating malaria, verify dose as salt vs. base per CDC guideline Esomeprazol No 20 mg, Ko arias e 01-14 Route: PO, l 14:00: Drug form: Anastacio 00 ECCAP, Daily, Dosing Weight 75, kg, Start date: 01/14/17 9:00:00 CDT, Duration: 30 day, Stop date: 02/12/17 9:00:00 CDT Streptococc No Notes: Ko arias us 01-14 Shake well l pneumoniae 14:00: prior to Her lock[place] serotype 1 00 use (Same capsular as: antigen Prevnar diphtheria 13) [id number] protein conjugate vaccine / Streptococc us pneumoniae serotype 14 capsular antigen diphtheria [id number] protein conjugate vaccine / Streptococc us pneumoniae serotype 18C capsular antigen d aspirin 81 No 81 mg, Memor ia mg tablet, 7- Route: PO, l enteric 14:00: Drug form: Herm nicolasa coated 00 ECTAB, Daily, Dosing Weight 75, kg, Start date: 01/14/17 9:00:00 CDT, Duration: 30 day, Stop date: 02/12/17 9:00:00 CDT pantoprazol No Notes: Ko arias e 7-22 Tablet l 14:00: should not be chewed or crushed. (Same as: Protonix) Thyroxine No Notes: Memori a 7-22 Take 1 l 11:30: hour before or 2 hours after meal; Enteral feeds may interefere with the absorption of this medication .(Same as:Levothr oid, Synthroid) Amitriptyli No Notes: [place] ne - (Same as: l 02:00: Elavil) atorvastati No 10 mg, Ko arias n - Route: PO, l 02:00: Drug form: [place] 00 TAB, Bedtime, Dosing Weight 75, kg, Start date: 01/13/17 21:00:00 CDT, Duration: 30 day, Stop date: 02/11/17 21:00:00 CDT metoprolol No Notes: Memor ia tartrate - (Same as: l 02:00: Lopressor) [place] Ticagrelor No Notes: Memor ia 7-22 (Same as: l 02:00: Brilinta) Anastacio 00 3 ML Yes 1.8 mg, Memoria liraglutide -22 SUB-Q, l 6 MG/ML 00:02: Daily, # 9 Herm nicolasa Prefilled 00 mL, 1 Syringe Refill(s) [Victoza] metoprolol No 50 mg, Memor ia tartrate 7-22 Daily, 0 l 00:02: Refill(s) amitriptyli Yes 100 mg = 2 Memoria ne 50 mg 01-13 tab, PO, l oral tablet 23:33: Bedtime, # [place] 00 30 tab, 0 Refill(s) have RPh No have RPh Memor ia verify & 01-13 verify & l bar-code pt 21:00: bar-code He rmann own 00 pt own Amitriptyli Amitriptyl ne-Perphena ine-Perphe zine nazine, reminder, Drug form: MISC, Route: MISC, QSHIFT, 01/13/17 16:00:00 CDT, Duration: 30 day, Stop date: 02/12/17 8:00:00 CDT tramadol No Notes: Not Mem oria hydrochlori 01-13 to exceed l de 50 MG 19:46: 400mg/day. Her lockett Oral Tablet 00 (Same As: Ultram) aspirin 81 No Notes: Do Me moria mg tablet, 01-13 not crush l enteric 18:24: or chew. Keaton n coated 00 (Same As: Ecotrin) Amitriptyli No 1 tab, Ko arias ne 01-13 Route: PO, l Hydrochlori 18:00: Drug Form: [place] de 50 MG / 00 TAB, Perphenazin Dosing e 4 MG Oral Weight 75, Tablet kg, TID, Start date: 01/13/17 13:00:00 CDT, Duration: 30 day, Stop date: 02/12/17 9:00:00 CDT Aspirin 325 No 325 mg, Mem oria MG Oral 01-13 Route: PO, l Tablet 16:13: Drug form: Ramona nn 00 CHEWTAB, ONCE, Dosing Weight 75, kg, Start date: 01/13/17 11:13:00 CDT, Stop date: 01/13/17 11:13:00 CDT Ticagrelor No Notes: Memor ia 01-13 (Same as: l 16:13: Brilinta) Nitroglycer No Notes: Ko arias in 01-13 (Same l 16:13: as:Nitroqu ick, Nitrostat) "Do Not Crush" Sublingual tablet Diphenhydra No 25 mg, 1 Me moria mine tab, l 16:13: Route: PO, [place] 00 Drug form: TAB, Bedtime, Dosing Weight 75, kg, PRN Insomnia, Start date: 01/13/17 11:13:00 CDT, Duration: 30 day, Stop date: 02/12/17 11:12:00 CDT Ondansetron No Notes: Ko arias 01-13 (Same as: l 16:13: Zofran) Temazepam No Notes: Memori a 01-13 (Same As: l 16:13: Restoril) Sodium No 750 mL, Memoria Chloride 01-13 Rate: 75 l 0.154 16:13: ml/hr, MEQ/ML 00 Infuse Injectable over: 10 Solution hr, Route: IV, Dosing Weight 75 kg, Total Volume: 750, Start date: 01/13/17 11:13:00 CDT, Duration: 10 hr, Stop date: 01/13/17 21:12:00 CDT atorvastati No 10 mg = 1 M emoria n 10 mg 01-13 tab, PO, l oral tablet 12:33: Bedtime, # Anastacio 00 30 tab, 0 Refill(s) Metformin Yes 500 mg = 1 Me moria hydrochlori - tab, PO, l de 500 MG 12:33: Daily, Keaton n Oral Tablet 00 take with a meal, # 30 tab, 1 Refill(s) Metformin No PO, 0 Memoria 01-13 Refill(s) l 12:33: Anastacio 00 metoprolol No 50 mg = 1 Me moria tartrate 50 - tab, PO, l mg oral 12:33: BID, # 60 Ramona nn tablet 00 tab, 0 Refill(s) Hydroxychlo Yes 200 mg = 1 Memoria roquine -21 tab, PO, l Sulfate 200 12:33: Daily, 0 He rmann MG Oral 00 Refill(s) Tablet Nitroglycer Yes 0.4 mg = 1 Memoria in 0.4 MG 8-31 tab, SL, l Sublingual 22:22: Q5Min, PRN H ermann Tablet 00 Chest [Nitrostat] Pain, # 30 tab, 0 Refill(s) Saline No Notes: Memoria Flush 0.9% 02-23 (Same as: l 21:26: BD [place] 00 Posiflush) Lortab 500 Yes Maxime 15 mL, PO, Memoria mg-7.5 8-15 Anselmo Q6H, 200 l mg/15 mL 17:57: mL, Anastacio oral elixir 09 Substituti on Allowed, Maintenanc e, LIQ amitriptyli Yes 1 tab, PO, Memoria ne-perphena 8-14 TID, 90 l zine 50 20:54: tab, [place] mg-4 mg 47 Substituti oral tablet on Allowed, Maintenanc e, TAB Lovenox No Maxime 40 mg, 0.4 Me moria 8-14 Anselmo mL, Route: l 17:00: SUB-Q, Drug form: INJ, [id number], Start date: 02/06/13 12:00:00, Duration: 30 day, Stop date: 03/08/13 0:00:00 Tylenol No Maxime 650 mg, Memor ia 8-14 Anselmo 20.3 mL, l 16:34: Route: PO, Drug form: LIQ, Q4H, PRN Pain Score 1-3, Start date: 02/06/13 11:34:00, Duration: 30 day, Stop date: 03/08/13 11:33:00 heparin No Maxime 5,000 Memoria 8-14 Anselmo unit, 1 l 08:00: mL, Route: [place] 00 SUB-Q, Drug form: INJ, ONCE, Start date: 02/06/13 3:00:00, Stop date: 02/06/13 3:00:00 Reglan No Maxime 10 mg, 2 Memor ia 8-14 Anselmo mL, Route: l 05:00: IV, Drug form: INJ, Q8H, Start date: 02/06/13 0:00:00, Duration: 30 day, Stop date: 03/07/13 16:00:00 cefazolin No Maxime 2 gm, 100 M emoria 8-14 Anselmo mL, Route: l 02:00: IVPB, Drug form: INJ, [id number], Start date: 02/05/13 21:00:00, Duration: 3 doses or times, Stop date: 02/06/13 13:00:00 Pepcid No Maxime 20 mg, 2 Memor ia 8-14 Anselmo mL, Route: l 02:00: IVP, Drug Anastacio form: INJ, Q12H, Start date: 02/05/13 21:00:00, Duration: 30 day, Stop date: 03/07/13 9:00:00 ketorolac No Maxime 30 mg, 1 Me moria 30 mg/mL 8-14 Anselmo mL, Route: l injectable 00:00: IV, Drug Her [place] solution form: INJ, Q8H, Start date: 02/05/13 19:00:00, Duration: 4 doses or times, Stop date: 02/06/13 19:00:00 insulin 2012- No Maxime 5 unit, Memor ia regular 100 - Anselmo 0.05 mL, l units/mL 22:19: Route: [place] human 00 SUB-Q, recombinant Drug form: SOLN, TID-Before Meals, PRN Blood Glucose Results, Start date: 02/05/13 17:19:00, Duration: 30 day, Stop date: 03/07/13 17:18:00 Dextrose 2012- No Maxime 25 mL, Memor ia 50% in 8- Anselmo Route: l Water IV 22:19: IVP, Start Her lockett 00 date: 02/05/13 17:19:00, Duration: 30 day, Stop date: 03/07/13 17:18:00, PRN Blood Glucose Results Tylenol No Maxime 650 mg, 1 Mem oria 8-13 Anselmo supp, l 22:16: Route: OR, Anastacio 00 Drug form: SUPP, Q4H, PRN Temperatur e >100.5, Start date: 02/05/13 17:16:00, Duration: 30 day, Stop date: 03/07/13 17:15:00 Phenergan No Maxime 25 mg, 1 Me moria 8-13 Anselmo mL, Route: l 22:16: IM, Drug [place] form: INJ, Q4H, PRN Nausea, Start date: 02/05/13 17:16:00, Duration: 30 day, Stop date: 03/07/13 17:15:00 Vasotec 2012-0 No Maxime 1.25 mg, 1 Me moria 8-13 Anselmo mL, Route: l 22:15: IV, Drug form: INJ, Q6H, PRN Elevated BP, Start date: 02/05/13 17:15:00, Duration: 30 day, Stop date: 03/07/13 17:14:00 Lactated 2012-0 No Maxime 1,000 mL, Me moria Ringers 8-13 Anselmo Rate: 80 l Injection 22:12: ml/hr, Keaton n IV 1,000 mL 00 Infuse over: 12.5 hr, Route: IV, Dosing Weight 100 kg, Total Volume: 1,000, Start date: 02/05/13 17:12:00, Stop date: 03/07/13 17:11:00 Phenergan + 2012-0 No Maxime 25 mg, 1 Memoria Sodium 8-13 Anselmo mL, Route: l Chloride 20:20: IVPB, Q4H, Her lockett 0.9% IV 50 00 PRN Nausea mL & Vomiting, Start date: 02/05/13 15:20:00, Duration: 30 day, Stop date: 03/07/13 15:19:00 Zofran 2012-0 No Maxime 4 mg, 2 Memori a 8-13 Anselmo mL, Route: l 20:20: IVP, Drug form: INJ, Q8H, PRN Nausea & Vomiting, Start date: 02/05/13 15:20:00, Duration: 30 day, Stop date: 03/07/13 15:19:00 Benadryl 2012-0 No Maxime 12.5 mg, Mem oria 8-13 Anselmo 0.25 mL, l 20:20: Route: Anastacio 00 IVP, Drug form: INJ, Q6H, PRN Itching, Start date: 02/05/13 15:20:00, Duration: 30 day, Stop date: 03/07/13 15:19:00 naloxone 2012-0 No Maxime 0.2 mg, Ko arias 8-13 Anselmo 0.5 mL, l 20:19: Route: [place] 00 IVP, Drug form: INJ, Q5Min, PRN Narcotic Reversal, Start date: 02/05/13 15:19:00, Duration: 30 day, Stop date: 03/07/13 15:18:00 morphine 2012- No Maxime IV, Start Me moria Sulfate 30 02-05 Anselmo date: l mg 20:19: 02/05/13 [place] 00 15:19:00, Duration: 30, 30 ml, 100 Peridex No Maxime 15 ml, Memori a 0.12% 02-05 Anselmo Route: l topical 16:30: S&SPIT, [place] liquid 00 ONCE, Drug form: LIQ, Start date: 02/05/13 11:30:00, Stop date: 02/05/13 11:30:00 Sodium 2012- No Grant 1,000 mL, Memori a Chloride 02-05 Celio Rate: 50 l 0.9% IV 16:21: Noyola ml/hr, Her lockett 1,000 mL 00 Infuse over: 20 hr, Route: IV, Dosing Weight 100 kg, Total Volume: 1,000, Start date: 02/05/13 11:21:00, Duration: 30 day, Stop date: 03/07/13 11:20:00 morphine No Grant 2 mg, 0.2 Ko arias Sulfate 02-05 Celio mL, Route: l 16:21: [place] IVP, Drug Her lockett 00 form: INJ, Q5Min, Dosing Weight 100, kg, PRN Pain, Start date: 02/05/13 11:21:00, Duration: 5 doses or times, Stop date: Limited # of times, 2mg IVP q5min PRN pain score 4-6, duration: 5 doses or times, 4mg q5min PRN bennie... naloxone No Grant 0.04 mg, Memor ia 02-05 Celio 0.1 mL, l 16:21: [place] Route: Keaton n 00 IVP, Drug form: INJ, Q2MIN, Dosing Weight 100, kg, PRN Narcotic Reversal, Start date: 02/05/13 11:21:00, Duration: 8 doses or times, Stop date: Limited # of times flumazenil No Grant 0.2 mg, 2 Me moria 02-05 Celio mL, Route: l 16:21: [place] IVP, Drug Her [place] form: INJ, PRN, Dosing Weight 100, kg, PRN Benzodiaze pine Reversal, Initial dose, Start date: 02/05/13 11:21:00, Duration: 30 day, Stop date: 03/07/13 11:20:00 hydromorpho 2012- No Grant 0.5 mg, Mem oria ne 02-05 Celio 0.25 mL, l 16:21: Jazmín Route: Keaton n 00 IVP, Drug form: INJ, Q5Min, Dosing Weight 100, kg, PRN Pain Score 7-10, Start date: 02/05/13 11:21:00, Duration: 5 doses or times, Stop date: Limited # of times ondansetron 2012- No Grant 4 mg, 2 Mem oria 02-05 Celio mL, Route: l 16:21: [place] IVP, Drug Her lockett form: INJ, ONCE, Dosing Weight 100, kg, PRN Nausea & Vomiting, Start date: 02/05/13 11:21:00 cefazolin No Maxime 2 gm, 100 M emoria 02-05 Anselmo mL, Route: l 03:00: IVPB, Drug Anastacio 00 form: INJ, ONCALL, Start date: 02/04/13 22:00:00, Duration: 30 day, Stop date: 03/06/13 21:59:00 naproxen 2012-0 No 375 mg, 1 Ko arias 375 mg oral 8-01 tab, PO, l enteric 00:42: BID, Anastacio coated 07 Substituti delayed-rel on Allowed ease tablet gabapentin Yes 800 mg, 1 Me moria 800 mg oral 8-01 tab, PO, l tablet 00:41: Substituti Ramona nn 16 on Allowed glimepiride 2012- No 4 mg, 1 Mem oria 4 mg oral 8-01 tab, PO, l tablet 00:40: Daily, Anastacio 57 Substituti on Allowed Valtrex 2012-0 Yes 1 gm, PO, Memor ia 8-01 Daily, l 00:40: Substituti Anastacio 40 on Allowed Toprol-XL No 25 mg, PO, Me moria 50 mg oral 8-01 Daily, l tablet, 00:40: Substituti Herm nicolasa extended 22 on Allowed release Cozaar 25 No 25 mg, 1 Ko arias mg oral 01-24 tab, PO, l tablet 00:40: Daily, 30 Keaton n 00 tab, Substituti on Allowed, TAB Tramadol Tramadol Yes [facility] (Schedule [facility] HCl HCl [facility] 1 [facility] TABLET BY l MOUTH [facility] EVERY 8 ent HOURS Clinics NEEDED Metoprolol Metoprolol Yes [facility]ezar TAKE [address] [facility] Tartrate Tartrate [facility] TABLET BY Sandra kes - MOUTH [facility] TWICE A l DAY [facility] ent Clinics Clopidogrel Clopidogrel Yes [facility]ezar TAKE [address] [facility] Bisulfate Bisulfate [facility] TABLET BY [facility] - MOUTH [facility] EVERY DAY l [facility] ent Clinics Vital Signs Vital Name Observation Time Observation Value Comments Source Systolic blood 2019-03-05 09:42:00 138 mm[Hg] [place] n Jew pressure Diastolic blood 2019-03-05 09:42:00 60 mm[Hg] Parag on Jew pressure Heart rate 2019-03-05 09:42:00 71 /min [place] [facility] Body height 2019-03-05 09:42:00 165.1 cm [place] [facility] Body weight 2019-03-05 09:42:00 82.555 kg [place] [facility] BMI 2019-03-05 09:42:00 30.29 kg/m2 [place] [facility] Temperature Oral (F) 2017-01-14 16:52:00 98.6 F [facility] Respitory Rate 2017-01-14 16:52:00 [facility] [place] Heart Rate 2017-01-14 16:52:00 [facility] [place] Systolic (mm Hg) 2017-01-14 16:52:00 [facility] [place] Diastolic (mm Hg) 2017-01-14 16:52:00 [facility] [place] Temperature Oral (F) 2017-01-14 12:55:00 98.0 F [facility] [place] Heart Rate 2017-01-14 12:55:00 [facility] [place] Systolic (mm Hg) 2017-01-14 12:55:00 Ko [facility] [place] Diastolic (mm Hg) 2017-01-14 12:55:00 [facility] [place] Respitory Rate 2017-01-14 12:55:00 [facility] [place] Temperature Oral (F) 2017-01-14 09:00:00 98.2 F [facility] Respitory Rate 2017-01-14 09:00:00 [facility] [place] Heart Rate 2017-01-14 09:00:00 [facility] [place] Systolic (mm Hg) 2017-01-14 09:00:00 Ko [facility] [place] Diastolic (mm Hg) 2017-01-14 09:00:00 [facility] [place] Weight 2017-01-14 00:09:00 [facility] BMI Calculated 2017-01-13 12:27:00 [facility] [place] Weight 2017-01-13 12:27:00 [facility] Height 2017-01-13 12:27:00 165.1 cm [facility] [place] Respitory Rate 2015-02-23 22:30:00 [facility] [place] Heart Rate 2015-02-23 22:30:00 [facility] [place] Temperature Oral (F) 2015-02-23 22:30:00 98.2 F [facility] Systolic (mm Hg) 2015-02-23 22:30:00 Ko [facility] [place] Diastolic (mm Hg) 2015-02-23 22:30:00 [facility] [place] Temperature Oral (F) 2015-02-23 20:34:00 98.0 F [facility] [place] Height 2015-02-23 20:34:00 157.48 cm [facility] [place] Systolic (mm Hg) 2015-02-23 20:34:00 [facility] [place] Diastolic (mm Hg) 2015-02-23 20:34:00 [facility] [place] Heart Rate 2015-02-23 20:34:00 [facility] [place] Respitory Rate 2015-02-23 20:34:00 [facility] [place] BMI Calculated 2015-02-23 20:34:00 [facility] [place] Weight 2015-02-23 20:34:00 [facility] [place] Diastolic (mm Hg) 2013-02-07 16:16:00 [facility] [place] Respitory Rate 2013-02-07 16:16:00 [facility] [place] Systolic (mm Hg) 2013-02-07 16:16:00 [facility] [place] Temperature Oral (F) 2013-02-07 16:16:00 98.1 F [facility] Heart Rate 2013-02-07 16:16:00 [facility] [place] Diastolic (mm Hg) 2013-02-07 12:41:00 [facility] [place] Respitory Rate 2013-02-07 12:41:00 [facility] [place] Heart Rate 2013-02-07 12:41:00 [facility] Temperature Oral (F) 2013-02-07 12:41:00 98.4 F [facility] Systolic (mm Hg) 2013-02-07 12:41:00 Ko [facility] [place] Systolic (mm Hg) 2013-02-07 09:30:00 [facility] [place] Respitory Rate 2013-02-07 09:30:00 [facility] [place] Diastolic (mm Hg) 2013-02-07 09:30:00 [facility] [place] Temperature Oral (F) 2013-02-07 09:30:00 98.2 F [facility] [place] Heart Rate 2013-02-07 09:30:00 [facility] [place] Weight 2013-01-23 16:03:00 [facility] [place] Height 2013-01-23 16:03:00 165.1 cm [facility] [place] Procedures Procedure Date / Time Performing Clinician Source Performed LIPID PANEL 2019-03-11 07:52:00 Paxton Meneses Meth odist AST (SGOT) 2019-03-11 07:52:00 Paxton Meneses Meth odist ECG 12-LEAD 2019-03-05 08:36:05 Paxton Meneses odist Gastric bypass operation 2013-02-05 05:00:00 [facility] [place] Gastric bypass operation 2013-02-05 05:00:00 [facility] [place] Ankle<sup>1</sup> [facility] Ramona nn Appendectomy [facility] [place] Carpal tunnel release [facility] Catheterization of left [facility] heart Cervical spinal fusion [facility] section [facility] [place] n Cholecystectomy [facility] [place] Decompression laminectomy [facility] [place] of lumbar spine H/O: hysterectomy [facility] Ramona nn Knee replacement [facility] [place] n Percutaneous insertion of [facility] [place] drug eluting stent into coronary artery using fluoroscopic guidance Ankle <sup>1</sup> [facility] nicolasa Appendectomy [facility] Carpal tunnel release [facility] Cervical spinal fusion [facility] section [facility] [place] n Cholecystectomy [facility] [place] Decompression laminectomy [facility] [place] of lumbar spine H/O: hysterectomy [facility] Ramona nn Knee replacement [facility] [place] n Plan of Care Planned Activity Planned Date Details Comments Source Future Scheduled 2020-01-25 INFLUENZA VACCINE [place] [facility] 00:00:00 [code = INFLUENZA VACCINE] Future Scheduled 2010 65+ PNEUMOCOCCAL [place] [facility] 00:00:00 VACCINE (1 of 2 - PCV13) [code = 65+ PNEUMOCOCCAL VACCINE (1 of 2 - PCV13)] Future Scheduled 1995 BREAST CANCER [facility] 00:00:00 SCREENING [code = BREAST CANCER SCREENING] Future Scheduled 1995 COLONOSCOPY SCREENING [facility] Test 00:00:00 [code = COLONOSCOPY SCREENING] Future Scheduled 1995 SHINGLES VACCINES (#1) H [facility] Test 00:00:00 [code = SHINGLES VACCINES (#1)] Encounters Start End Encounter Admission Attending Care Care Encounter Source Date/Time Date/Time Type Type Clinicians Facility Department ID 2018-10-16 2018-10-16 Outpatient Adal Francis [id number] [facility] 14:[facility] 14[facility] 2018-10-16 2018-10-16 Outpatient Adal Khanosporjayne [id number] [facility] 10:30:00 10:30:00 [facility] 2018-09-17 2018-09-17 [facility] [id number] [facility] 07:50:00 07:50:00 [facility] 2018-09-16 2018-09-16 Outpatient Adal Khanosporjayne [id number] [facility] 22:25:00 22:25:00 [facility] 2018-09-13 2018-09-13 [facility] [id number] [facility] 11:00:00 11:00:00 [facility] 2018-08-23 2018-08-23 Outpatient Adal Khanosporjayne [id number] [facility] 09:30:00 09:30:00 [facility] 2018-08-08 2018-08-08 [facility] [id number] [facility] 08:30:00 08:30:00 [facility] 2017-01-13 2017-01-14 Outpatient Lalitha [facility] [id number] 06:27:00 14:18:00 Nisheegregory Lj Feliciano 2016-02-23 2016-02-23 Outpatient Tono [id number] . [id number] 11:04:00 23:59:00 Edward Ray [id number] 5.29 2015-02-23 2015-02-23 Outpatient Grant Dejesus [id number] 15:30:00 17:33:00 Reyes 04 Results Test Description Test Time Test Comments Results Result Comments Source Lipid panel 2019-03-12 11:43:00 Test Item Value Reference Range Interpretation Comme nts Cholesterol (test code = 2093-3) 128 mg/dL 100-199 Triglycerides (test code = 2571-8) 134 mg/dL 0-149 HDL cholesterol (test code = 2085-9) 34 mg/dL >39 L VLDL cholesterol aneesh (test code = 27 mg/dL 5-40 73600-6) LDL cholesterol calculated (test code 67 mg/dL 0-99 = 03328-2) Non-HDL cholesterol (test code = 94 mg/dL 0-129 70018-0) RICH (test code = RICH) Performed at: [facility] [id number] Director: Christ Cervantes MD, Phone: [phone] Comment: A duplicate report has been generated due to demographic updates. Lab Interpretation (test code = Abnormal 69353-2) [place] [facility]2019-03-12 11:43:00 Test Item Value Reference Range Interpretation Comments AST (test code = 1920-8) 44 0- 40 IU/L H RICH (test code = RICH) Performed at: [facility] [id number] Director: Christ Cervantes MD, Phone: [phone] Lab Interpretation (test Abnormal code = 07822-6) [facility] 12 hbyw4613-40-00 12:19:59 Test Item Value Reference Range Interpretation Comments Ventricular rate (test 67 code = 253) Atrial rate (test code 67 = 255) OR interval (test code 136 = 266) QRSD interval (test 84 code = 260) QT interval (test code 400 = 264) QTC interval (test code 422 = 265) P axis 1 (test code = 70 267) QRS axis 1 (test code = 4 268) T wave axis (test code 54 = 270) EKG impression (test Normal sinus code = 273) rhythm-Normal ECG-In automated comparison with ECG of 10-AUG-2017 10:37,-No significant change was found-Electronically Signed By Alessandro ZEPEDA [facility] ([id number]) on 03/05/2019 12:19:52 PM [place] MethodistCHEM HXHCU6013-26-88 22:54:0077[facility] HermannCHEM PANEL 2017-01-13 22:54:000.78[facility] VgvgfjxZXASQIRNSK7226-32-10 22:54:0012.1[facility] HermannCARDIAC MPJNBRA1888-90-57 21:39:001.4[facility] HermannCARDIAC ENZYMES 2015-02-23 21:39:60272Mblcsyio HermannCARDIAC VJBCAAH5967-53-01 21:39:002.2 [facility] HermannCARDIAC TYUKVJF0455-36-92 21:39:00<0.02[facility] HermannCHEM PFBVM8306-50-98 21:39:0080[facility] HermannCHEM AGYGN9143-95-91 21:39:0025 [facility] HermannCHEM FANQK6517-52-78 21:39:32907Vqmbmsmd HermannCHEM PANEL 2015-02-23 21:39:003.8[facility] HermannCHEM UMQJV7373-95-25 21:39:37547Slfesocq HermannCHEM LRGHU4305-35-19 21:39:0019[facility] HermannCHEM QUYSP8000-20-54 21:39:78650Sfuxcfna HermannCHEM CICEG9520-26-41 21:39:000.8[facility] HermannCHEM IISTY8339-22-29 21:39:0015[facility] HermannCHEM DTKPL5026-11-09 21:39:000.3 [facility] HermannCHEM MBYDT8745-52-88 21:39:009.6[facility] HermannCHEM PANEL 2015-02-23 21:39:007.3[facility] HermannCHEM RKEVX0047-45-38 21:39:009.8[facility] HermannCHEM DVIAI3759-00-65 21:39:0028[facility] HermannCHEM NTEJH5821-55-82 21:39:001.3[facility] HermannCHEM NQUXF3223-44-36 21:39:003.2[facility] HermannCHEM MLSWB2831-19-88 21:39:0083[facility] HermannCHEM SNGUP8667-14-05 21:39:004.1 [facility] HermannCHEM SCXHR5714-21-41 21:39:0040[facility] HermannHEMATOLOGY 2015-02-23 21:39:000.5[facility] NfgkckqNEWAXFLNPD5293-70-75 21:39:003.2[facility] SwdtjyfKGMKEBGXJN0343-16-35 21:39:000.1[facility] KywaeefRAAGNWGPEI8466-13-57 21:39:000.1[facility] RvflvtcJPMPATJNKA1071-80-19 21:39:002.6[facility] JRUJCNCHXT5523-64-73 21:39:001.7[facility] LpkmlsqLZSVBPJPIG6304-81-64 21:39:00 49.9[facility] UpmilcqCSHBYEPXES5926-84-63 21:39:000.9[facility] HermannHEMATOLOGY 2015-02-23 21:39:007.5[facility] BaniwyzOMZAMIPZBQ9979-27-18 21:39:0040.0[facility] LtjxmuaBLJAMIHVMQ1216-70-09 21:39:007.4[facility] ZkyrrbbKSJWGNKAAG9893-37-01 21:39:51215Buscsoux MmeiieiCMKZEUMBAM1950-85-18 21:39:0033.5[facility] SPIZQAIXGC3792-40-03 21:39:0013.1[facility] WkpzhhoNWMMTPPMLG4488-03-38 21:39:00 95.7[facility] HtmwycsFREHKHAWZI1909-36-64 21:39:00 Test Item Value Reference Range Interpretation Comments MCH (test code = MCH) 32.0 pg 27.0-31.0 [facility] WgdtuljTWXSIMUSQW1922-59-46 21:39:004.32[facility] HermannHEMATOLOGY 2015-02-23 21:39:0013.8[facility] ZqfgrtjNGYZFHWXOP7329-49-49 21:39:0041.3[facility] IyxwkbzBBRXDGYQFC4068-86-59 21:39:006.5[facility] HermannBEDSIDE GLUCOSE TESTING 2013-02-07 15:54:83258Eqwmepry HermannBEDSIDE GLUCOSE TGFCNWR0268-31-09 10:53:00 132[facility] BepomlhTPHAJEDSF7827-20-78 09:56:003.0[facility] HermannCHEMISTRY 2013-02-07 09:56:001.0[facility] JvwuxxfOWTYVQVFB9228-84-52 09:56:0017[facility] VmlyspbHCBLCIKKE4531-50-69 09:56:0013.1[facility] BjpppznMBZAUZOUJ2555-15-81 09:56:000.5[facility] RbkpmcwMTUEIXUKM4472-01-34 09:56:006.0[facility] [place] TGGAEWYHN7258-05-81 09:56:0015[facility] MofoirnPHHTIAZBM7557-99-32 09:56:0024 [facility] BrnwdioRHSJPABZH8070-67-25 09:56:003.0[facility] HermannCHEMISTRY 2013-02-07 09:56:25925Mpebcivq FkrjzecJHOPUQJUH8620-72-24 09:56:0039[facility] FzajilaZBZHXAAGB4549-82-95 09:56:0066[facility] HyqizrgFYYYIKNCM0387-47-96 09:56:000.9[facility] MrxqjviIWOWQPIVY5805-90-31 09:56:008.8[facility] [place] VWNIITANS9059-34-45 09:56:0076[facility] ObevyliNLPQNKXQH6040-01-20 09:56:0039 [facility] TqvhfgeKLGKADNSV1564-67-07 09:56:42162Kwcsknrx HermannCHEMISTRY 2013-02-07 09:56:05079Ikyfvims VfdiounWSNPBTAAS1789-72-48 09:56:005.1[facility] AiokdxxXBOHBORJZA4435-60-97 09:56:000.1[facility] XwzztcsRMNSKZVDRU6853-74-83 09:56:000.5[facility] FsstovzXWUZJTEGUO7365-25-73 09:56:000.1[facility] KJQRKLFRZN9930-40-15 09:56:002.0[facility] AycxyfgWPCKXSKHNK1904-16-87 09:56:003.1 [facility] IcpyisqCPWYKDESUY2664-61-64 09:56:000.0[facility] HermannHEMATOLOGY 2013-02-07 09:56:008.2[facility] JdfdoebMHOGLVNYMU5798-77-86 09:56:0053.9[facility] PoyuxvcUOPYTRALYP2533-27-36 09:56:0035.3[facility] GbeomchYLWCOTKIKT7925-89-35 09:56:002.5[facility] WcmwanqBKWNIHZILV2419-36-68 09:56:003.26[facility] YKLNVMZQOI1156-31-05 09:56:005.7[facility] RuvqnhqMFGRQGNTTM6515-29-62 09:56:00 86.7[facility] KnauckfHSUEFJYBSA6262-49-84 09:56:0031.6[facility] HermannHEMATOLOGY 2013-02-07 09:56:0016.9[facility] EqjnqmzIIKKEKCUEI0171-16-98 09:56:00 Test Item Value Reference Range Interpretation Comments MCH (test code = MCH) 27.4 pg 27.0-31.0 N [facility] XcvwjjqMGWOCIDFXA8631-35-10 09:56:0028.3[facility] HermannHEMATOLOGY 2013-02-07 09:56:008.9[facility] RyamaxhBUYFZDLIES5019-18-42 09:56:008.1[facility] FqdiagcHATXSRHNWA1391-36-94 09:56:37653Xdjcepja HermannBEDSIDE GLUCOSE TESTING 2013-02-07 02:19:96739Cmyeuudr YapgbvvZTOEVDXHD5338-06-30 08:34:000.4[facility] NlhycaqQWSEZLBOE2685-84-68 08:34:005.9[facility] ArzbqzuFTBCNLAAR8576-98-08 08:34:0015[facility] QduhbvaWQAZLEIAC8719-70-73 08:34:0023[facility] SXLSSLBAS2862-62-68 08:34:003.3[facility] XisxbmxTTKWGTVKR3381-98-03 08:34:58130 [facility] XsesbnjOXFCVMUUO7185-58-76 08:34:62926Wrxiedxq HermannCHEMISTRY 2013-02-06 08:34:005.0[facility] GbeebmrNSZSTVFHL7074-86-05 08:34:63240Qgwnarjn TjvzxydXLXMQVAFY8984-25-97 08:34:0095[facility] UwuuuecNSYPFXRQN6398-12-24 08:34:0067[facility] OugvdnwYUSOJSRRS1599-27-92 08:34:0074[facility] TRLAKBBRM5372-56-33 08:34:0052[facility] WqkbvyqXZEOLWIXY7507-03-89 08:34:001.1 [facility] UjhxxfoQYCAFYIMQ8650-11-90 08:34:008.8[facility] HermannCHEMISTRY 2013-02-06 08:34:001.3[facility] SjosuixGQREGSRXU0841-75-38 08:34:002.6[facility] BurckreOVUPFSCUM4986-94-99 08:34:0014[facility] RbqnruhKIKPVPSSL6633-86-35 08:34:0016.0[facility] ApzadwiNFWCDCVSPR3926-72-09 08:34:00Normal (02/06/2013 03:34:00)[facility] SurkuajIAAXTQLEYV4648-71-84 08:34:000.0[facility] [place] PFVXCANNZC0978-25-27 08:34:000.1[facility] VmrchslCKDUUSEIFT2000-06-21 08:34:00 82.7[facility] ZgxtvknNPBQLDUKCA8018-44-97 08:34:001.1[facility] HermannHEMATOLOGY 2013-02-06 08:34:000.0[facility] OwdnxygBBQFAZVJCX6680-14-57 08:34:006.5[facility] XdnjpovTHEQUSFRQQ0972-25-94 08:34:008.7[facility] WefjbrdGJVDAVXUDW1845-65-16 08:34:000.7[facility] ScdrbceFBQELNMQTB7765-85-64 08:34:000.0[facility] AGFWMVEWNE6436-92-47 08:34:00Normal (02/06/2013 03:34:00)[facility] [place] QQVOVBRKSC4224-65-69 08:34:0010.7[facility] XqwxixfMSYLGVQTIS0161-53-61 08:34:00 8.2[facility] MohkmovNNSNQUZLOD5351-74-79 08:34:02495Uudroxak HermannHEMATOLOGY 2013-02-06 08:34:0031.5[facility] VuelquwJDDQGPJCZS2928-81-52 08:34:0016.7[facility] VyojinwVMHOWGWLXH3039-46-01 08:34:0086.1[facility] HwzlxziRNKJBJRHTC1547-80-68 08:34:00 Test Item Value Reference Range Interpretation Comments MCH (test code = MCH) 27.1 pg 27.0-31.0 N [facility] HlalwhaMSLPNEIPWC3094-82-09 08:34:0031.4[facility] HermannHEMATOLOGY 2013-02-06 08:34:009.9[facility] VnggairKOLEFJCXTR6169-25-70 08:34:003.65[facility] KndwecmLGWEHUQBSE7263-35-61 08:34:0010.6[facility] HrzschwUCHDDMCBDQ0130-71-00 18:20:00Few /LPF *NA*(02/05/2013 13:20:00)[facility] OanooteVRGZIKVVFY3626-87-08 18:20:001.017[facility] AeuplyvIWETIKDXUZ1312-23-23 18:20:00Clear (02/05/2013 13:20:00)[facility] WlalxxaJHLDIKEBTR6523-25-94 18:20:00Yellow *NA*(02/05/2013 13:20:00)[facility] ArligbySQISICASRC8083-04-52 18:20:005.0[facility] [place] KBYSQBHTPD5485-44-69 18:20:00Negative mg/dL *NA*(02/05/2013 13:20:00)[facility] JaocmfqPOXXEMXXTR1824-39-32 18:20:00Negative mg/dL (02/05/2013 13:20:00)[facility] WzaewydNMIFXNOATR4441-04-25 18:20:00Negative mg/dL *NA*(02/05/2013 13:20:00) [facility] XukagzlVFCFHWAATE1153-67-90 18:20:00Negative *NA*(02/05/2013 13:20:00) [facility] NzaxlafXKZNUPDDTT9953-39-34 18:20:00Negative (02/05/2013 13:20:00) [facility] QfqiaufLTBGBDHQWI0524-14-72 18:20:00Few /LPF *NA*(02/05/2013 13:20:00) [facility] DdizwxqZWCAULUUTC4230-26-99 18:20:00Moderate *ABN*(02/05/2013 13:20:00) [facility] AxejgnlOGUUJEWIZO4302-35-51 18:20:001[facility] HermannURINALYSIS 2013-02-05 18:20:00Occasional /HPF *NA*(02/05/2013 13:20:00)[facility] HIIYIIZRYF4223-32-56 18:20:00Positive *ABN*(02/05/2013 13:20:00)[facility] [place] ZATWLKQIFT3777-49-95 18:20:008[facility]annBL[facility]OD BANK IRJGCGV3758-66-61 16:35:00Negative (02/05/2013 11:35:00)[facility] VuvoxjuJOXIXGEUO6152-14-83 16:50:0025[facility] GecucrjSHHOTGJDN1974-25-68 16:50:0061.3[facility] YWIHZROSQ2960-17-56 16:50:16961Wtllmtbv AwjuwukMCPQHGPBT3965-48-64 16:50:81271 [facility] PprfwooXPUFIZRTP0639-48-12 16:50:004.3[facility] HermannCHEMISTRY 2013-01-23 16:50:0019[facility] QcrudnnSVJHDVGVX2957-62-78 16:50:001.0[facility] DqacqsrKEIEZROYD5197-14-15 16:50:0058[facility] PokezqxWCLAFMMKFG8348-61-17 16:50:0011.4[facility] KipogchPJURMHDBRP9993-56-70 16:50:0034.8[facility] [place]
[2019-12-16 15:48] VITALS: BP 129/62; TEMP 96.9; O2SAT 97; BMI 27.6
== END 2019-12-16 21:53 | disposition home or self-care (01) ==
LOC: DS 13:49
DX: D64.9 Anemia, unspecified (principal)
CPT/HCPCS: 36415; 86900; 86850; 86901; 85018; 85014; 36430; P9016 ×2; J7040

== ENCOUNTER 2021-06-30 18:07 | Emergency (ER) | payer OTHER ==
--- OUTSIDE RECORDS SUMMARY | 2021-06-30 18:10 | XMS REPORT | Continuity of Care Document ---
:1945 Author Organization [facility] t Address [address] [place] [address] Care Team Providers Name Role Phone AGUILAR Attending Clinician Unavailable Radiology Attending Clinician Unavailable RADIOLOGY Attending Clinician Unavailable Jadon DEL CID Attending Clinician Unavailable Nakita GALLO Attending Clinician Unavailable Nakita GALLO Admitting Clinician Unavailable Payers Payer Name Policy Type Policy Number Effective Date Expiration Date S ource Problems This patient has no known problems. Allergies, Adverse Reactions, Alerts Allergy Allergy Status Severity Reaction(s) Onset Inactive Treating Comm ents Source Name Type Date Date Clinician Demerol Adverse Active Info Not [facility] Reaction Available [facility] NO KNOWN Drug Active Univers ALLERGIE Class ity [facility] Social History Social Habit Start Date Stop Date Quantity Comments Source Sex Assigned At [birth year] [facility] 00:00:00 00:00:00 Medical Branch Smoking Status Start Date Stop Date Source Never smoker [facility] Medications Ordered Filled Start Stop Current Ordering Indication Dosage Frequency Signature Comments Components Source Medication Medication Date Date Medication? Clinician (SIG) Name Name Valacyclovi Valacyclovi 2018- Yes [facility] [address] [facility] HCl r HCl 2-13 [facility] - 00[facility]: [facility] Atorvastati Atorvastati Yes Cezar [address] [facility] n Calcium n Calcium 2-13 [facility] - 00:[facility]: [facility] Aspir Aspir2018-0 Yes [facility] [address] [facility] 2-13 [...] 00 l Outpati ent Clinics Synthroid Synthroid Yes [place] [address] [facility] 2-13 [facility] an [facility] stomach in l the Outpati morning ent Clinics METFORMIN Yes Take by Univ ers HCL 9-11 mouth. ity of (METFORMIN 21:35: [place] ORAL) 45 Medical Branch atorvastati Yes 10mg Take 10 mg Univers n 10 mg 9-11 by mouth ity of tablet 21:35: at [place] 45 bedtime. Medical Branch hydroxychlo Yes TAKE 1 Univ ers roquine 200 9-06 TABLET BY ity of mg tablet 00:00: MOUTH [place] 00 TWICE A Medical DAY Branch traMADOL 50 Yes TAKE 1 Univ ers mg tablet 9-06 TABLET BY ity o f 00:00: MOUTH 3 [place] 00 TIMES A Medical DAY Branch NEEDED FOR PAIN amitriptyli Yes TAKE 2 Univ ers ne 50 mg 9-02 TABLETS BY ity o f tablet 00:00: MOUTH AT [place] 00 BEDTIME Medical Branch BRILINTA 90 Yes 90mg Take 90 mg Univers mg tablet 8-14 by mouth ity of 00:00: every 12 [place] 00 (twelve) Medical hours. Branch losartan 50 Yes 50mg Take 50 mg Univers mg tablet 7-14 by mouth ity of 00:00: daily. [place] 00 Medical Branch levothyroxi 2017-0 Yes 50ug Take 50 Uni vers ne 50 mcg 7-14 mcg by ity of tablet 00:00: mouth [place] 00 daily. Medical Branch VICTOZA Yes INJECT 1.8 Univ ers 3-KJ 0.6 7-14 SUBCUTANEO ity of mg/0.1 mL 00:00: [place] EVERY [place] (18 mg/3 00 DAY Medical mL) Branch injection metoprolol Yes TAKE 1 Unive rs succinate 6-20 TABLET BY ity o f XL 50 mg 24 00:00: MOUTH [place] hr tablet 00 EVERY DAY Medic al NEED Branch OFFICE VISIT valACYclovi Yes TAKE 1/2 Un madeline r 1 gram 6-20 TABLET BY ity of tablet 00:00: MOUTH [place] 00 DAILY Medical Branch Tramadol Tramadol Yes [facility]ezar (Schedule [facility] HCl HCl [facility]) [facility] - TAKE 1 [facility] TABLET BY l MOUTH Outpati EVERY 8 ent HOURS Clinics NEEDED Metoprolol Metoprolol Yes Cezar TAKE [address] Tartrate Tartrate [facility] TABLET BY Sandra kes - MOUTH [facility]oria TWICE A l DAY Outpati ent Clinics Clopidogrel Clopidogrel Yes Cezar TAKE [address] [facility] [address] Bisulfate Bisulfate [facility] TABLET BY [facility] - MOUTH [facility] EVERY DAY l Outpati ent Clinics Immunizations Ordered Filled Immunization Date Status Comments Sour e Immunization Name Name SARS-COV-2 COVID-19 2020-08-25 Completed Unive rsity of PFIZER VACCINE 00:00:00 [facility] SARS-COV-2 COVID-19 2020-08-04 Completed Unive rsity of PFIZER VACCINE 00:00:00 [facility] Procedures Procedure Date / Time Performing Clinician Source Performed NOTICE OF BILLING 2021-02-03 20:22:20 Doctor Unamingoigned, [facility] PRACTICES FOR MEDICARE [facility] PATIENTS [facility] PATIENT FINANCIAL 2021-02-03 20:22:00 Doctor Unassigned, Un [facility] POLICY [facility] NO SHOW OR MISSED 2021-02-03 20:21:43 Doctor Valdemar, [facility] APPOINTMENT POLICY [facility] h ACKNOWLEDGEMENT CONSENT/REFUSAL FOR 2021-02-03 20:21:17 Doctor [facility]ul[facility], [facility] DIAGNOSIS AND TREATMENT [facility] ASSIGNMENT OF BENEFITS 2021-02-03 20:20:58 Doctor Unassigned, Un [facility] [place] [facility] Encounters Start End Encounter Admission Attending Care Care Encounter Source Date/Time Date/Time Type Type Clinicians Facility Department ID 2021-06-09 2021-06-09 ambulatory [facility] [id number] [facility] 2021-06-07 2021-06-07 ambulatory [facility] [id number] [facility] 2021-06-01 2021-06-01 ambulatory [facility] [id number] [facility] 2021-06-01 2021-06-01 ambulatory [facility] [id number] [facility] 2021-05-28 2021-05-28 ambulatory [facility] [id number] [facility] 2021-05-11 2021-05-11 ambulatory [facility] [id number] [facility] 2021-02-25 2021-02-25 Outpatient [facility] [id number] 00:00:00 00:00:[address] [facility] [address] 2021-02-25 2021-02-25 Outpatient [facility] [id number] 00:00:00 00:00:00 [facility] [address] 2021-02-12 2021-02-12 Outpatient [facility] [id number] 00:00:00 00:00:00 [facility] [address] 2021-02-10 2021-02-10 Outpatient [facility] [id number] [facility] 2021-02-03 2021-02-03 Hospital Radiology [facility] [id number] [facility] 15:19:25 23:59:00 Encounter [place] [id number] itcheri delcid [place] [id number] [facility] [id number] [address] 2021-02-03 2021-02-03 Outpatient R RADIOLOGY [facility] [id number] Univers 00:00:00 00:00:00 [facility] 2021-02-03 2021-02-03 Out[facility] [id number] [facility] 2021-01-25 2021-01-25 Outpatient [facility] [id number] [facility] 2021-01-08 2021-01-08 Outpatient [facility] [id number] [facility] 2021-01-08 2021-01-08 Outpatient [facility] [id number] [facility] 2021-01-01 2021-01-01 Outpatient [facility] [id number] [facility] 2020-12-15 2020-12-15 Outpatient [facility] [id number] [facility] 2020-11-16 2020-11-16 Outpatient [facility] [id number] [facility] 2020-09-14 2020-09-14 Outpatient [facility] [id number] [facility] 2020-08-25 2020-08-25 Outpatient Mike DEL CID [facility] [id number] Univers 14:50:00 14:05:17 JESÚS [place] [facility] 2020-08-04 2020-08-04 Outpatient Mike DEL CID [facility] [id number] Univers 13:00:00 13:58:42 JESÚS ity [facility] 2020-03-17 2020-03-17 Outpatient [facility] [id number] 00:00:00 00:00:00 [facility] [address] 2020-03-03 2020-03-03 Outpatient [facility] [id number] 00:00:00 00:00:00 [facility] [address] 2020-01-27 2020-01-27 Outpatient BRANDON [facility] [id number] [facility] 05:16:00 08:20:00 LEXIS Nelson 2018-10-16 2018-10-16 [facility] [id number] [facility] 14:00:00 14:00[facility]00 [facility] [place] Clinics 2018-10-16 2018-10-16 [facility] [id number] 10:30:00 10:30:00 [facility] Clinics 2018-09-17 2018-09-17 [facility] [id number] 07:50:00 07:50:00 [facility] [place] ent Clinics 2018-09-16 2018-09-16 [facility] [id number] 22:25:00 22:25:00 [facility] ent Clinics 2018-09-13 2018-09-13 [facility] [id number] 11:00:00 11:00:00 [facility] [place] ent Clinics 2018-08-23 2018-08-23 [facility] [id number] 09:30:00 09:30:00 [facility] [place] ent Clinics 2018-08-08 2018-08-08 [facility] [id number] 08:30:00 08:30:00 [facility] Clin[facility] Results This patient has no known results.
[2021-06-30] MEDS ORDERED: MORPHINE 4 MG/ML SYR ONE ×2 (19:01→22:40)
[2021-06-30] MEDS ORDERED: ONDANSETRON 4 MG (ODT) TAB ONE ×2 (19:01→22:40)
--- NOTE | 2021-06-30 20:19 | RAD REPORT ---
EXAM DESCRIPTION: RAD - Elbow Left 3 View - 06/30/2021 8:07 pm CLINICAL HISTORY: Left elbow pain status post trauma FINDINGS: A moderately displaced supracondylar humeral fracture. No dislocation
--- NOTE | 2021-06-30 22:35 | EDPHYS ---
Physician Documentation [facility] Name: Katie Carl Age: 76 yrs Sex: Female : 1945 Arrival Date: 06/30/2021 Time: 18:11 Bed 10 Private MD: ED Physician Cayden العراقي HPI: 06/30 18:59 This 76 yrs old Female presents to ER via Wheelchair with complaints of Fall Injury, pm1 Elbow Injury. 18:59 Details of fall: The patient fell from an upright position, while walking, and struck a pm1 concrete surface. Onset: The symptoms/episode began/occurred 4 hour(s) ago. Associated injuries: The patient sustained left elbow. Severity of symptoms: in the emergency department the symptoms are unchanged. The patient has not experienced similar symptoms in the past. The patient has not recently seen a physician. Patient was walking with an arm full of laundry and tripped landing on her left elbow. No head injury, headache, LOC, neck pain. Historical: - Allergies: 18:56 No Known Allergies; ld1 - PMHx: 18:56 Diabetes - NIDDM; heart stents x2; Hyperlipidemia; Hypertension; ld1 - PSHx: 18:56 section; Cholecystectomy; Appendectomy; ld1 - Immunization history:: Adult Immunizations up to date, Client reports receiving the 2nd dose of the Covid vaccine. - Social history:: Smoking status: Patient denies any tobacco usage or history of. Patient/guardian denies using alcohol. - Immunization history: Last tetanus immunization: unknown. ROS: 18:59 Constitutional: Negative for fever, chills, and weight loss, Neck: Negative for injury, pm1 pain, and swelling, Cardiovascular: Negative for chest pain, palpitations, and edema, Respiratory: Negative for shortness of breath, cough, wheezing, and pleuritic chest pain, Skin: Negative for injury, rash, and discoloration, Neuro: Negative for headache, weakness, numbness, tingling, and seizure. 18:59 Abdomen/GI: Negative for abdominal pain, nausea, vomiting, diarrhea, and constipation, Back: Negative for injury and pain. 18:59 MS/extremity: Positive for pain, of the left elbow. 18:59 All other systems are negative. Exam: 18:59 Constitutional: This is a well developed, well nourished patient who is awake, alert, pm1 and in no acute distress. Head/Face: Normocephalic, atraumatic. 18:59 Skin: Warm, dry with normal turgor. Normal color with no rashes, no lesions, and no evidence of cellulitis. 18:59 Neck: Exam negative for acute changes, External neck: is normal, C-spine: appears grossly normal, no vertebral tenderness, no crepitus. 18:59 Cardiovascular: Exam negative for acute changes, Rate: normal, Rhythm: regular, Pulses: no pulse deficits are appreciated. 18:59 Respiratory: Exam negative for acute changes, respiratory distress, shortness of breath. 18:59 Musculoskeletal/extremity: Extremities: grossly normal except: noted in the left elbow: swelling, tenderness. 18:59 Neuro: Exam negative for acute changes, Orientation: is normal, Mentation: is normal, Motor: is normal, moves all fours. Vital Signs: 18:55 BP 137 / 80; Pulse 92; Resp 18; Temp 98.6(O); Pulse Ox 98% on R/A; Weight 75.3 kg; ld1 Height 5 ft. 5 in. (165.10 cm); Pain 8/10; 22:30 BP 132 / 88; Pulse 86; Resp 18; Pulse Ox 99% on R/A; ld1 18:55 Body Mass Index 27.62 (75.30 kg, 165.10 cm) ld1 Laith Coma Score: 22:39 Eye Response: spontaneous(4). Verbal Response: oriented(5). Motor Response: obeys ld1 commands(6). Total: 15. Trauma Score (Adult): 22:39 Eye Response: spontaneous(1); Verbal Response: oriented(1); Motor Response: obeys ld1 commands(2); Systolic BP: > 89 mm Hg(4); Respiratory Rate: 10 to 29 per min(4); Laith Score: 15; Trauma Score: 12 Procedures: 22:32 Splinting: Splint applied to left arm using Orthoglass splint, applied by tech. bora Examined by me, post splint application: neurovascular intact, 2+ distal pulses palpable, brisk capillary refill noted, Patient tolerated well. MDM: 22:17 Patient medically screened. bora 22:33 Data reviewed: vital signs, nurses notes. Counseling: I had a detailed discussion with bora the patient and/or guardian regarding: the historical points, exam findings, and any diagnostic results supporting the discharge/admit diagnosis, radiology results, the need for outpatient follow up, to return to the emergency department if symptoms worsen or persist or if there are any questions or concerns that arise at home. 06/30 18:58 Order name: XRAY Elbow LEFT 3 view; Complete Time: 21:43 ld1 06/30 22:30 Order name: Posterior Elbow Splint; Complete Time: 22:50 [facility] Administered Medications: 19:05 Drug: morphine 4 mg Route: IM; Site: right deltoid; ld1 19:05 Follow up: Response: No adverse reaction ld1 19:05 Drug: Zofran (Ondansetron) 4 mg Route: PO; ld1 19:05 Follow up: Response: No adverse reaction ld1 22:45 Drug: morphine 4 mg Route: IM; Site: right deltoid; ld1 22:55 Follow up: Response: No adverse reaction ld1 22:45 Drug: Zofran (Ondansetron) 4 mg Route: PO; ld1 22:55 Follow up: Response: No adverse reaction ld1 Disposition: 07/01 02:01 Co-signature as Attending Physician, Cayden العراقي MD. pkl Disposition Summary: 06/30/21 22:34 Discharge Ordered Location: Home [facility] Condition: Stable [facility] Diagnosis - Supracondylar fracture [facility] Followup: [facility] - With: Yemi Rodriguez MD - When: 2 - 3 days - Reason: Recheck today's complaints, Continuance of care, Re-evaluation by your physician Followup: [facility] - With: Cezar Bowers MD - When: 2 - 3 days - Reason: Recheck today's complaints, Continuance of care, Re-evaluation by your physician Discharge Instructions: - Discharge Summary Sheet [facility] - Distal Humerus Elbow Fracture [facility] Forms: - Medication Reconciliation Form [facility] - Thank You Letter [facility] - Antibiotic Education [facility] - Prescription Opioid Use [facility] Prescriptions: - Tylenol-Codeine #3 300 mg-30 mg Oral - take 1 tablet by ORAL route every 4-6 hours; 20 tablet; Refills: 0, Product [facility] Selection Permitted Signatures: Dispatcher [employer] Cayden Ndiaye MD MD pkJose G Ornelas PA PA m Raul Arciniega, SUPPORT TEACHER SUPPORT TEACHER pm1 Oralia Love, RN RN ld1
--- NOTE | 2021-06-30 22:35 | ER ---
Nurse's Notes [facility] Name: Katie Carl Age: 76 yrs Sex: Female : 1945 Arrival Date: 06/30/2021 Time: 18:11 Bed 10 Private MD: Diagnosis: Supracondylar fracture Presentation: 06/30 18:55 Chief complaint: Patient states: I was walking and missed the step. I fell and hit my ld1 left elbow on the concrete. Denies LOC or hitting head. Coronavirus screen: At this time, the client does not indicate any symptoms associated with coronavirus-19. Ebola Screen: No symptoms or risks identified at this time. Initial Sepsis Screen: Does the patient meet any 2 criteria? No. Patient's initial sepsis screen is negative. Does the patient have a suspected source of infection? No. Patient's initial sepsis screen is negative. Risk Assessment: Do you want to hurt yourself or someone else? Patient reports no desire to harm self or others. Onset of symptoms was June 30, 2021 at 18:56. 18:55 Method Of Arrival: Wheelchair ld1 18:55 Acuity: BERE 3 ld1 22:51 Care prior to arrival: None. Mechanism of Injury: Fall. Mechanism of Injury: Fall from ld1 standing position. Trauma event details: Injury occurred in the [facility], Injury occurred: at home. Injury occurred: June 30, 2021 Injury occurred at: 15:00. Triage Assessment: 18:56 General: Appears in no apparent distress. comfortable, Behavior is calm, cooperative, ld1 appropriate for age. Pain: Complains of pain in left elbow Pain does not radiate. Pain currently is 9 out of 10 on a pain scale. Neuro: Level of Consciousness is awake, alert, obeys commands, Oriented to person, place, time, situation. Respiratory: Airway is patent Respiratory effort is even, unlabored. Musculoskeletal: Reports pain in left elbow. Trauma Activation: Not Applicable Physician: ED Physician; Name: ; Notified At: ; Arrived At: Physician: General Surgeon; Name: ; Notified At: ; Arrived At: Physician: Radiology; Name: ; Notified At: ; Arrived At: Physician: Respiratory; Name: ; Notified At: ; Arrived At: Physician: Lab; Name: ; Notified At: ; Arrived At: Historical: - Allergies: 18:56 No Known Allergies; ld1 - PMHx: 18:56 Diabetes - NIDDM; heart stents x2; Hyperlipidemia; Hypertension; ld1 - PSHx: 18:56 section; Cholecystectomy; Appendectomy; ld1 - Immunization history:: Adult Immunizations up to date, Client reports receiving the 2nd dose of the Covid vaccine. - Social history:: Smoking status: Patient denies any tobacco usage or history of. Patient/guardian denies using alcohol. - Immunization history: Last tetanus immunization: unknown. Screenin:38 Abuse screen: Denies threats or abuse. Nutritional screening: No deficits noted. ld1 Tuberculosis screening: No symptoms or risk factors identified. Fall Risk Fall in past 12 months (25 points). Secondary diagnosis (15 points) impaired mobility, No IV (0 pts). Ambulatory Aid- Crutches/Cane/Walker (15 pts). Primary Survey: 22:30 Reassessment Breathing/Chest Respiratory pattern Regular Respiratory effort Spontaneous.ld1 22:38 NO uncontrolled hemorrhage observed. Breathing/Chest: Respiratory pattern: regular, ld1 Respiratory effort: unlabored, Breath sounds: clear. Circulation: Cardiac rhythm: sinus rhythm. Disability Alert. Exposure/Environment: There is no evidence of uncontrolled external bleeding. No obvious injuries are noted at this time. Assessment: 22:30 Reassessment: See triage assessment. ld1 Vital Signs: 18:55 BP 137 / 80; Pulse 92; Resp 18; Temp 98.6(O); Pulse Ox 98% on R/A; Weight 75.3 kg; ld1 Height 5 ft. 5 in. (165.10 cm); Pain 8/10; 22:30 BP 132 / 88; Pulse 86; Resp 18; Pulse Ox 99% on R/A; ld1 18:55 Body Mass Index 27.62 (75.30 kg, 165.10 cm) ld1 [place] Coma Score: 22:39 Eye Response: spontaneous(4). Verbal Response: oriented(5). Motor Response: obeys ld1 commands(6). Total: 15. Trauma Score (Adult): 22:39 Eye Response: spontaneous(1); Verbal Response: oriented(1); Motor Response: obeys ld1 commands(2); Systolic BP: > 89 mm Hg(4); Respiratory Rate: 10 to 29 per min(4); Columbia Score: 15; Trauma Score: 12 ED Course: 18:11 Patient arrived in ED. ds1 18:56 Triage completed. ld1 18:56 Arm band placed on right wrist. ld1 20:06 XRAY Elbow LEFT 3 view In Process Unspecified. EDMS 21:56 Jose G Mary PA is PHCP. jmm 22:30 Patient has correct armband on for positive identification. Call light in reach. Adult ld1 w/ patient. 22:30 Patient maintains SpO2 saturation greater than 95% on room air. ld1 22:30 Thermoregulation: warm blanket given to patient. ld1 22:34 Yemi Rodriguez MD is Referral Physician. jmm 22:34 Cezar Bowers MD is Referral Physician. jmm 22:35 Cayden العراقي MD is Attending Physician. jmm 22:50 Patient did not have IV access during this emergency room visit. ld1 22:51 Orthoglass splint: posterior long arm splint applied to the left arm. Sling applied to ds4 left arm. 22:53 No provider procedures requiring assistance completed. ld1 Administered Medications: 19:05 Drug: morphine 4 mg Route: IM; Site: right deltoid; ld1 19:05 Follow up: Response: No adverse reaction ld1 19:05 Drug: Zofran (Ondansetron) 4 mg Route: PO; ld1 19:05 Follow up: Response: No adverse reaction ld1 22:45 Drug: morphine 4 mg Route: IM; Site: right deltoid; ld1 22:55 Follow up: Response: No adverse reaction ld1 22:45 Drug: Zofran (Ondansetron) 4 mg Route: PO; ld1 22:55 Follow up: Response: No adverse reaction ld1 Intake: 22:39 PO: 0ml; Total: 0ml. ld1 Outcome: 22:34 Discharge ordered by MD. jmm 22:52 Discharged to home via wheelchair, with significant other. ld1 22:52 Condition: good 22:52 Discharge instructions given to patient, significant other, Instructed on discharge instructions, follow up and referral plans. medication usage. 22:53 Patient's length of stay in the Emergency Department was greater than 2 hours. No rooms ld1 available in EDPatient's length of stay extended due to 23:04 Patient left the ED. ld1 Signatures: Dispatcher [employer] EDMS Jose G Mary PA PA jmm Sanford, Demi ds1 Diego Jensen ds4 Raul Arciniega NP CUT OFF SAW OPERATOR pm1 Oralia Love RN RN ld1 Corrections: (The following items were deleted from the chart) 22:52 22:50 Assist provider with fracture care Set up for procedure. Immobilized with ds4 preformed splint, Patient tolerated well. ld1
[2021-06-30 23:09] VITALS: TEMP 98.6
[2021-06-30 23:10] VITALS: BP 132/88; O2SAT 99
== END 2021-06-30 23:04 | disposition home or self-care (01) ==
LOC: ER 18:07
PROC: 2W39X1Z Immobilization of Left Upper Extremity using Splint (ICD-10-PCS; principal; 2021-06-30)
DX: S42.412A Displaced simple supracondylar fracture without intercondylar fracture of left humerus, initial encounter for closed fracture (principal); W10.9XXA Fall (on) (from) unspecified stairs and steps, initial encounter; Y93.9 Activity, unspecified; Y92.9 Unspecified place or not applicable
CPT/HCPCS: 96372; 99284

== ENCOUNTER 2021-07-06 06:00 | Day surgery (SDC) | payer OTHER ==
[2021-07-05 12:42] LABS: Absolute Lymphocytes (CBC) 1.8 K/uL (0.7-4.9); Hematocrit 40.5 % (36.0-45.0); Lymphocytes % 24.6 % (15.3-44.8); MPV 7.2 fL (7.6-11.3); RBC Red Blood Cell Count 4.25 M/uL (3.86-4.86)
[2021-07-05 13:50] LABS: Potassium 4.7 mmol/L (3.5-5.1)
[2021-07-06] MEDS ORDERED: LIDOCAINE 1% MPF 5 ML VIAL ONE (06:28)
[2021-07-06] MEDS ORDERED: ROPLVACAINE HCL 40 ML ONE (06:28)
[2021-07-06] MEDS ORDERED: MIDAZOLAM HCL 2 MG/2 ML INJ ONE (06:28)
[2021-07-06] MEDS ORDERED: dexAMETHasone 10 MG/ML VIAL ONE (06:28)
[2021-07-06] MEDS ORDERED: FENTANYL CITR 100 MCG/2 ML ONE (06:28)
[2021-07-06] MEDS ORDERED: CEFAZOLIN/NS 1gm 1 GM/50 ML BAG ONE (06:56)
[2021-07-06] MEDS ORDERED: NA CHLORIDE 0.9% 1,000 ML ONE (06:56)
[2021-07-06] MEDS ORDERED: KETOROLAC 30 MG/ML INJ ONE (07:05)
[2021-07-06] MEDS ORDERED: propofoL 200 MG/20 ML VIAL IV ONE (07:05)
[2021-07-06] MEDS ORDERED: LIDOCAINE 2% MPF 5 ML VIAL ONE (07:06)
[2021-07-06] MEDS ORDERED: ROCURONIUM 50 MG/5 ML VIAL IV ONE ×2 (07:06→10:07)
[2021-07-06] MEDS ORDERED: ONDANSETRON 4 MG/2 ML VIAL ONE (07:06)
[2021-07-06] MEDS ORDERED: dexAMETHasone 4 MG/ML VIAL ONE (07:06)
[2021-07-06] MEDS ORDERED: LANO/MINERAL OIL/PETRO 3.5 GM ONE (07:34)
[2021-07-06] MEDS ORDERED: Phenylephrine HCl 10 MG/ML 1 ML VIAL ONE (08:04)
[2021-07-06] MEDS ORDERED: NS 0.9% VIAL 10 ML ONE ×2 (08:05→08:33)
[2021-07-06] MEDS ORDERED: GLYCOPYRROLATE 0.2 MG/ML SYR ONE ×2 (08:06→10:51)
[2021-07-06] MEDS ORDERED: ALBUMIN HUM 5% 500 ML IV ONE (09:03)
[2021-07-06] MEDS: NA CHLORIDE 0.9% 1,000 ML ONE ×2 (09:11→10:00)
[2021-07-06] MEDS ORDERED: NEOSTIGMINE 1 MG/ML -5 ML ONE (10:56)
--- NOTE | 2021-07-06 11:43 | RAD REPORT ---
EXAM DESCRIPTION: RAD - Elbow Left 2 View - 07/06/2021 11:33 am CLINICAL HISTORY: ORIF COMPARISON: Elbow Left 3 View dated 06/30/2021 FINDINGS: Fluoroscopy time 0.4 minutes.
--- NOTE | 2021-07-06 12:35 | OP ---
Date of Procedure: 07/06/2021 Surgeon: Yemi Rodriguez MD Preoperative Diagnosis: Left transcondylar distal humerus fracture. Postoperative Diagnosis: Left transcondylar distal humerus fracture. Procedures: 1.Left transcondylar distal humerus fracture open reduction and internal fixation with both medial a nd lateral plating. 2.Olecranon osteotomy with repair of olecranon osteotomy using the Acumed olecranon plate. 3.Mobilization of the ulnar nerve. Estimated Blood Loss: 100 cc. Complications: There were no complications. Pathology Specimens: No pathology specimens sent. Indication For Operation: Ms. Carl is a 76-year-old female, who unfortunately fell injuring her lef t elbow. She came to see me in more or less extreme pain. X-rays were taken, which demonstrated a d isplaced transcondylar, humerus fracture. Risks, benefits, and alternatives of different methods of treating this include nonoperative management were discussed in detail. The patient highly desires o perative management and has been cleared by Cardiology. Risks, benefits, and alternatives of the spe cific procedure have been discussed with her. She states she understands things as presented and wis hed to proceed. Description Of Procedure: The patient was taken to the operating taken the operating, placed in supi ne position. General anesthesia was easily obtained by the Anesthesia staff. She previously had a l eft upper extremity block. Following this, she was then rolled prone with Anesthesia checking bony p rominences and positioning. Following this, her left upper extremity was then prepped and draped in the usual sterile fashion. C-arm was brought in to ensure we can get good views. The arm was then e levated, but not exsanguinated and tourniquet was raised. A standard posterior incision was made car efully through skin and soft tissues and meticulous hemostasis being maintained using Bovie electroca utery. This leads down to the olecranon as well as the triceps and ulna. Very careful exploration a nd dissection of the ulnar nerve were then carried out to allow for mobilization throughout the case. This was freed up quite a bit proximally and part of it distally to allow for to easily slide over the medial epicondyle. After this, attention was then turned to the olecranon as the fracture site i tself was extremely difficult to visualize. A small hole was made in the anconeus to allow for asael r visualization of the olecranon articular surface. This was followed by placing of the cutting jig has been done with the final part being performed with an osteotomy. The triceps was then reflected in standard fashion and the distal humerus fracture was identified. It was found to be quite a bit t ranslated and rotated. There was some bony comminution as well as some mild bone loss. The articula r surface itself appeared to be intact with the fracture going through the olecranon fossa. After th is, both the medial and lateral sides are prepared and then pinned using K-wires, there was felt to b e good reduction and may be very slightly translated; however, this appeared to be have the most bony contact. After this, the lateral plate was then applied in standard fashion. The medial plate was attempted to be placed. It should be noted she has a very thin humerus and 1 medial plate has been p laced, but unfortunately sits somewhat posteriorly. This was despite further dissection trying to fo rce it more medially. The plate to allow for good bone contact. I felt this is the best position for the plate giving the best opposition and therefore the medial plate was then applied. U nfortunately, we could only obtain 1 lock screw distally, 2 locking screws proximally. After this, t he wound was irrigated and the triceps and olecranon were then repaired back to the olecranon using t he Acumed plate. This allowed for very good reduction of the osteotomy. The elbow was then brought through full range of motion, did not appear to have any grinding or block from flexion or extension. The small rent which was performed in the anconeus was closed along with some tacking down of the t riceps. The ulnar nerve was examined and found to be in continuity. The skin was then closed using interrupted Vicryl sutures followed by uday. The patient was then placed in a very well-padded sterile dressing, a posterior splint, awakened, and taken to the re covery room. /MILO Voice ID: [id number] Report ID: [id number]
[2021-07-06 14:14] VITALS: BP 115/49; TEMP 98.8; O2SAT 93
== END 2021-07-06 13:20 | disposition home or self-care (01) ==
LOC: OR 06:00
PROVIDERS: ATTEND Orthopaedic Surgery
PROC: 0PSG04Z Reposition Left Humeral Shaft with Internal Fixation Device, Open Approach (ICD-10-PCS; principal; 2021-07-06 07:30)
DX: S42.472A Displaced transcondylar fracture of left humerus, initial encounter for closed fracture (principal); Z20.822 Contact with and (suspected) exposure to COVID-19
CPT/HCPCS: 93005; 85025; 80048; 36415; 82947 ×2; 73070; 24579; U0003; J2704; J1100 ×2; J2370; J2250; J3010; P9045; J2795; J2710; J0690; J7030 ×2; J2405

== ENCOUNTER 2022-05-13 09:38 | Day surgery (SDC) | payer OTHER ==
[2022-05-09 13:02] LABS: Absolute Lymphocytes (CBC) 2.5 K/uL (0.7-4.9); Lymphocytes % 40.7 % (15.3-44.8); MCV 95.1 fL (80-100); MPV 7.2 fL (7.6-11.3)
[2022-05-09 13:16] LABS: Potassium 4.5 mmol/L (3.5-5.1)
--- NOTE | 2022-05-10 08:23 | EKG ---
Test Date: 2022-05-09 Test Time: 12:21:17 Magnetic Healer: MARIAELENA MEASUREMENT RESULTS: Intervals: Rate: 63 WA: 150 QRSD: 84 QT: 418 QTc: 427 [place]: P: 38 WA: 150 QRS: -5 T: 23 INTERPRETIVE STATEMENTS: Normal sinus rhythm Low voltage QRS Borderline ECG Compared to ECG 07/05/2021 12:47:37 Low QRS voltage now present Electronically Signed On 05-10-22 08:20:03 SENIOR INSIGHT MANAGER by Tristen Chaudhary
[2022-05-13] MEDS ORDERED: KETOROLAC 30 MG/ML INJ ONE ×3 (10:11→10:54)
[2022-05-13] MEDS ORDERED: CEFAZOLIN SODIUM 1 GM/VIAL ONE ×2 (10:11→10:12)
[2022-05-13] MEDS ORDERED: NA CHLORIDE 0.9% 1,000 ML ONE (10:12)
[2022-05-13] MEDS ORDERED: MIDAZOLAM HCL 2 MG/2 ML INJ ONE (10:54)
[2022-05-13] MEDS ORDERED: FENTANYL CITR 100 MCG/2 ML ONE (10:54)
[2022-05-13] MEDS ORDERED: LIDOCAINE 1% MPF 5 ML VIAL ONE (10:54)
[2022-05-13] MEDS ORDERED: ONDANSETRON 4 MG/2 ML VIAL ONE (10:54)
[2022-05-13] MEDS ORDERED: propofoL 200 MG/20 ML VIAL IV ONE (10:54)
[2022-05-13] MEDS ORDERED: dexAMETHasone 10 MG/ML VIAL ONE (10:54)
[2022-05-13] MEDS ORDERED: EPINEPHRINE/PF 1 MG/ML AMP ONE (10:54)
[2022-05-13] MEDS ORDERED: ROPLVACAINE HCL 40 ML ONE (11:12)
[2022-05-13] MEDS ORDERED: dexAMETHasone 4 MG/ML VIAL ONE (12:17)
[2022-05-13 13:04] VITALS: TEMP 97.2; O2SAT 97
[2022-05-13 14:53] VITALS: BP 149/66
--- NOTE | 2022-05-13 18:34 | RAD REPORT ---
EXAM DESCRIPTION: RAD - Fluoroscopy <1 Hour - 05/13/2022 3:27 pm CLINICAL HISTORY: REMOVAL OF LEFT ULNAR PLATE COMPARISON: No comparisons FINDINGS/IMPRESSION: Two intraoperative fluoroscopic images were submitted showing plate and screw p lacement at the distal humerus and proximal ulna. Fluoro time: 0 minutes Cumulative dose: 0.0891
--- NOTE | 2022-05-14 01:33 | OP ---
Date of Procedure: 05/13/2022 Surgeon: Yemi Rodriguez MD Preoperative Diagnosis: Retained left elbow plate, which was causing symptoms. Postoperative Diagnosis: Retained left elbow plate, which was causing symptoms. Procedure: Removal of left elbow plate. Estimated Blood Loss: Less than 10 cc. Complications: There were no complications. Indications For Operation: Ms. Carl is a 77-year-old female who unfortunately had both column and i nter column distal humerus fracture, which was treated by me with open reduction and internal fixatio n and both medial and lateral plating. Exposure necessitated olecranon osteotomy, which was then becca ated with olecranon plate. This went on to heal beautifully with excellent range of motion. Unfortu nately, the olecranon plate gives her problems whenever she rests her elbow on a hard surface. The r isks, benefits, and alternatives of different methods of treating this have been discussed with her a nd she decided that she would like to have the plate removed and the osteotomy has definitely healed as well as the remainder of the bones. She was told that we will not be removing the other plates as these are much more extensive and do not appear to be bothering her and she agrees to proceed. Description Of Procedure: The patient was taken to the operating room and placed in supine position. General anesthesia was obtained by Anesthesia staff. She had previously had a block. A well-padde d tourniquet was placed on superior left arm. Left upper extremity was then prepped and draped in th e usual sterile fashion for the procedure. The arm was then elevated, but not exsanguinated and tour niquet was raised. The previous incision was then utilized and taken down carefully through skin onl y with meticulous hemostasis being maintained using Bovie electrocautery. This leads down to the ebony te. The plate is gently uncovered throughout its length and all of the margins of the plate as well as screws are exposed. After this the 4 cluster screws, which were smaller are than removed without difficulty. This was followed by removal of the remaining screws. Before the plate was removed from the bone, C-arm was used to ensure all screws were removed. The plate was then gently tapped off th e bone. Rongeur and curette were then used to smooth any prominences at the previous screw holes. T he wound was irrigated and skin was closed using interrupted nylon sutures. The patient was placed i n an Aquacel dressing as well as significant padding as this area does have the possibility of direct injury from placing the elbow on a hard surface. There were no complications. SE/MODL Voice ID: [id number] Report ID: [id number]
== END 2022-05-13 13:45 | disposition home or self-care (01) ==
LOC: OR 09:38
PROVIDERS: ATTEND Orthopaedic Surgery
PROC: 0RPM04Z Removal of Internal Fixation Device from Left Elbow Joint, Open Approach (ICD-10-PCS; principal; 2022-05-13 11:30)
DX: M25.522 Pain in left elbow (principal); T85.848D Pain due to other internal prosthetic devices, implants and grafts, subsequent encounter
CPT/HCPCS: 93005; 85025; 80048; 36415; 82947 ×2; 20680; J2704; J1100 ×2; J0171; J2001; J2250; J3010; J2795; J7030; J2405; J0690 ×2; 76000

== ENCOUNTER → 2023-08-19 | Emergency (ER) | payer OTHER ==
[~2023-08-19] MED LIST: LEVALBUTEROL 1.25 MG/3 ML NEB ONE; PROMETHAZINE INJ 25 MG/ML AMP ONE
[2023-08-19 12:41] LABS: Absolute Lymphocytes (CBC) 2.3 K/uL (0.7-4.9); Hematocrit 36.6 % (36.0-45.0); Lymphocytes % 21.3 % (15.3-44.8); MCV 93.3 fL (80-100); MPV 7.5 fL (7.6-11.3); Platelets 229 thou/uL (152-406); RBC Red Blood Cell Count 3.92 M/uL (3.86-4.86)
[2023-08-19 13:00] LABS: Potassium 4.4 mEq/L (3.5-5.1); Troponin High Sensitivity 42.6 pg/mL (<58.9)
--- NOTE | 2023-08-19 13:07 | RAD REPORT ---
EXAM DESCRIPTION: RADChest Single View08/19/2023 12:36 pm CLINICAL HISTORY: CHEST PAIN COMPARISON: Chest Pa And Lat (2 Views) dated 04/20/2023; Chest Pa And Lat (2 Views) dated 05/21/2018 ; CHEST SINGLE VIEW dated 02/11/2011; CHEST SINGLE VIEW dated 11/05/2007 TECHNIQUE: Portable AP view of the chest. FINDINGS: The lungs are clear. No pneumothorax or effusion. The cardiomediastinal contours are unre markable. IMPRESSION: No acute cardiopulmonary process.
[2023-08-19 13:32] LABS: Anisocytosis 1+; Blood Morphology Comment NOTED (NOT SEEN); Platelet Estimate ADEQ; White Blood Cell Scan OK (OK)
--- NOTE | 2023-08-19 15:52 | EDPHYS ---
Physician Documentation [facility] Name: Katie Carl Age: 78 yrs Sex: Female : 1945 Arrival Date: 08/19/2023 Time: 11:32 Bed 18 Private MD: ED Physician Lalo Regalado HPI: 08/19 13:56 This 78 yrs old Female presents to ER via Ambulatory with complaints of Shortness Of kdr Breath, Cough. 13:56 The patient has shortness of breath at rest. kdr 13:56 Patient awoke this morning with shortness of breath and chest pain. She started kdr coughing and coughing and could not stop. She then began to feel like she was choking and could not get her breath. Patient continued to have chest pain during that time. Since then the patient has had persistent chest discomfort though not as severe as initially noted. She also has had continued and persistent coughing. Her vital signs were noted to be normal on my initial evaluation. The patient was not in any acute distress. Patient was able to carry on a conversation without interruption from coughing. She did have 1 or 2 spells but they were mild and easily controlled and managed. Patient's vital signs did not change when she was having her coughing episodes. Patient is otherwise nontoxic appearing and not needing immediate intervention. Onset: The symptoms/episode began/occurred acutely, this morning. Severity of symptoms: At their worst the symptoms were incapacitating in the emergency department the symptoms have improved markedly. The patient has not experienced similar symptoms in the past. The patient has not recently seen a physician. Historical: - Allergies: 11:59 Codeine; cm10 - PMHx: 11:59 Diabetes - NIDDM; heart stents x2; Hyperlipidemia; Hypertension; cm10 - PSHx: 11:59 Appendectomy; section; Cholecystectomy; cm10 - Immunization history:: Adult Immunizations up to date, Pneumococcal vaccine is up to date, Flu vaccine is up to date. - Social history:: Smoking status: Patient denies any tobacco usage or history of. ROS: 13:56 Constitutional: Negative for fever, chills, and weight loss, Eyes: Negative for injury, kdr pain, redness, and discharge, ENT: Negative for injury, pain, and discharge, Neck: Negative for injury, pain, and swelling, Cardiovascular: Negative for chest pain, palpitations, and edema, Respiratory: Negative for shortness of breath, cough, wheezing, and pleuritic chest pain, Abdomen/GI: Negative for abdominal pain, nausea, vomiting, diarrhea, and constipation, Back: Negative for injury and pain, : Negative for injury, bleeding, discharge, and swelling, MS/Extremity: Negative for injury and deformity, Skin: Negative for injury, rash, and discoloration, Neuro: Negative for headache, weakness, numbness, tingling, and seizure activity. Psych: Negative for depression, anxiety, suicide ideation, homicidal ideation, and hallucinations, Allergy/Immunology: Negative for hives, rash, and allergies, Endocrine: Negative for neck swelling, polydipsia, polyuria, polyphagia, and marked weight changes, Exam: 13:56 Constitutional: This is a well developed, well nourished patient who is awake, alert, kdr and in no acute distress. Head/Face: Normocephalic, atraumatic. Eyes: Pupils equal round and reactive to light, extra-ocular motions intact. Lids and lashes normal. Conjunctiva and sclera are non-icteric and not injected. Cornea within normal limits. Periorbital areas with no swelling, redness, or edema. Neck: Trachea midline, no thyromegaly or masses palpated, and no cervical lymphadenopathy. Supple, full range of motion without nuchal rigidity, or vertebral point tenderness. No Meningismus. Chest/axilla: Normal chest wall appearance and motion. Nontender with no deformity. No lesions are appreciated. Cardiovascular: Regular rate and rhythm with a normal S1 and S2. No gallops, murmurs, or rubs. Normal PMI, no JVD. No pulse deficits. Respiratory: Lungs have equal breath sounds bilaterally, clear to auscultation and percussion. No rales, rhonchi or wheezes noted. No increased work of breathing, no retractions or nasal flaring. Abdomen/GI: Soft, non-tender, with normal bowel sounds. No distension or tympany. No guarding or rebound. No evidence of tenderness throughout. Back: No spinal tenderness. No costovertebral tenderness. Full range of motion. Skin: Warm, dry with normal turgor. Normal color with no rashes, no lesions, and no evidence of cellulitis. MS/ Extremity: Pulses equal, no cyanosis. Neurovascular intact. Full, normal range of motion. Neuro: Awake and alert, GCS 15, oriented to person, place, time, and situation. Cranial nerves II-XII grossly intact. Motor strength 5/5 in all extremities. Sensory grossly intact. Cerebellar exam normal. Normal gait. Psych: Awake, alert, with orientation to person, place and time. Behavior, mood, and affect are within normal limits. Vital Signs: 11:58 BP 176 / 60; Pulse 66; Resp 12; Temp 97.1; Pulse Ox 100% ; Weight 84.82 kg; Height 5 cm10 ft. 5 in. ; Pain 7/10; 13:41 BP 175 / 70; Pulse 64; Resp 16 S; Pulse Ox 100% on R/A; kc6 14:38 BP 166 / 62; Pulse 68; Resp 16 S; Pulse Ox 100% on R/A; kc6 15:39 Pulse 67; Resp 18 S; Pulse Ox 98% on R/A; kc6 11:58 Body Mass Index 31.12 (84.82 kg, 165.1 cm) cm10 11:58 Pain Scale: Adult cm10 MDM: 13:56 Data reviewed: vital signs, nurses notes, lab test result(s), radiologic studies. kdr 15:51 Patient medically screened. kdr 08/19 12:03 Order name: Basic Metabolic Panel; Complete Time: 14:21 hb 08/19 12:03 Order name: CBC with Diff; Complete Time: 14: hb 08/19 12:03 Order name: Troponin HS; Complete Time: 14: hb 08/19 13:06 Order name: Glucose, Ancillary Testing; Complete Time: 14:21 EDTX 08/19 13:33 Order name: CBC Smear Scan; Complete Time: 14:21 EDTX 08/19 14:39 Order name: Troponin High Sensitivity; Complete Time: 15:25 kdr 08/19 12:03 Order name: XRAY Chest (1 view); Complete Time: 14:21 hb 08/19 12:03 Order name: EKG; Complete Time: 12:03 hb 08/19 12:03 Order name: Cardiac monitoring; Complete Time: 12:33 hb 08/19 12:03 Order name: EKG - Nurse/Tech; Complete Time: 12:33 hb 08/19 12:03 Order name: IV Saline Lock; Complete Time: 12:33 hb 08/19 12:03 Order name: Labs collected and sent; Complete Time: 12:33 hb 08/19 12:03 Order name: O2 Per Protocol; Complete Time: 12: hb 08/19 12:03 Order name: O2 Sat Monitoring; Complete Time: 12: hb Administered Medications: 13:40 Drug: Levalbuterol Inhalation 1.25 mg Inhalation once Route: Inhalation; kc6 14:14 Follow up: Response: No adverse reaction kc6 13:40 Drug: Promethazine IVP 12.5 mg IVP once Route: IVP; Site: left hand; kc6 14:14 Follow up: Response: No adverse reaction kc6 Disposition Summary: 08/19/23 15:51 Discharge Ordered Notes: Location: Home kdr Problem: new kdr Symptoms: have improved kdr Condition: Stable kdr Diagnosis - Acute upper respiratory infection, unspecified kdr - Other viral infections of unspecified site kdr - Acute bronchitis, unspecified kdr - Cough kdr - Chest pain, unspecified kdr Followup: kdr - With: Private Physician - When: 2 - 3 days - Reason: If symptoms return, Further diagnostic work-up, Recheck today's complaints, Continuance of care, Re-evaluation by your physician Discharge Instructions: - Discharge Summary Sheet kdr - Acute Bronchitis, Adult kdr - Pain Without a Known Cause kdr - Viral Respiratory Infection kdr - Nonspecific Chest Pain, Adult, [id number] kdr - Viral Respiratory Infection, [id number] kdr Forms: - Medication Reconciliation Form kdr - Thank You Letter kdr - Patient Portal Instructions kdr - Leadership Thank You Letter kdr Prescriptions: - Robitussin Cough-Chest Ashu DM 5-100 mg/5 mL Oral liquid - take 10 milliliter ORAL route every 8 hours As needed; 200 milliliter; Refills: kdr 0, Product Selection Permitted - Ventolin HFA 90 mcg/actuation Inhalation HFA Aerosol Inhaler - inhale 2 inhalation INHALATION route every 2 hours as needed for bronchospasm; kdr administer via ventilator; 2 Applicator; Refills: 0, Product Selection Permitted Signatures: Dispatcher [employer] Lalo Parikh MD MD kdr Carolyn Varma, JORGE RN Samantha Moseley, EXPORT FREIGHT CLERK EXPORT FREIGHT CLERK Wendi Martínez RN RN kc6 Veronica Tinajero RN RN cm10
--- NOTE | 2023-08-19 15:52 | ER ---
Nurse's Notes [facility] Name: Katie Carl Age: 78 yrs Sex: Female : 1945 Arrival Date: 08/19/2023 Time: 11:32 Bed 18 Private MD: Diagnosis: Acute upper respiratory infection, unspecified;Other viral infections of unspecified site;Acute bronchitis, unspecified;Cough;Chest pain, unspecified Presentation: 08/19 11:58 Chief complaint: Patient states: Sent over from urgent care for chest pain, shortness cm10 of breath and cough onset this morning at 0500. Coronavirus screen: Vaccine status: Patient reports receiving the 2nd dose of the covid vaccine. Client denies travel out of the [place] in the last 14 days. Ebola Screen: Patient denies travel to an Ebola-affected area in the 21 days before illness onset. No symptoms or risks identified at this time. Initial Sepsis Screen: Does the patient meet any 2 criteria? No. Patient's initial sepsis screen is negative. Does the patient have a suspected source of infection? No. Patient's initial sepsis screen is negative. Risk Assessment: Do you want to hurt yourself or someone else? Patient reports no desire to harm self or others. Onset of symptoms was August 19, 2023. 11:58 Method Of Arrival: Ambulatory cm10 11:58 Acuity: BERE 2 cm10 Triage Assessment: 12:00 General: Appears in no apparent distress. comfortable, Behavior is calm, cooperative. cm10 Pain: Complains of pain in chest. Neuro: No deficits noted. Level of Consciousness is awake, alert, obeys commands, Oriented to person, place, time, situation. Cardiovascular: No deficits noted. Capillary refill < 3 seconds Patient's skin is warm and dry. Respiratory: Airway is patent Respiratory effort is even, unlabored, Respiratory pattern is regular, symmetrical. Historical: - Allergies: 11:59 Codeine; cm10 - PMHx: 11:59 Diabetes - NIDDM; heart stents x2; Hyperlipidemia; Hypertension; cm10 - PSHx: 11:59 Appendectomy; section; Cholecystectomy; cm10 - Immunization history:: Adult Immunizations up to date, Pneumococcal vaccine is up to date, Flu vaccine is up to date. - Social history:: Smoking status: Patient denies any tobacco usage or history of. Screenin:34 [facility] ED Fall Risk Assessment (Adult) History of falling in the last 3 months, kc6 including since admission No falls in past 3 months (0 pts) Confusion or Disorientation No (0 pts) Intoxicated or Sedated No (0 pts) Impaired Gait No (0 pts) Mobility Assist Device Used No (0 pt) Altered Elimination No (0 pt) Score/Fall Risk Level 0 - 2 = Low Risk. Abuse screen: Denies threats or abuse. Denies injuries from another. Nutritional screening: No deficits noted. Tuberculosis screening: No symptoms or risk factors identified. Assessment: 12:34 General: Appears in no apparent distress. comfortable, well groomed, well developed, kc6 Behavior is calm, cooperative, appropriate for age. Pain: Complains of pain in chest. Cardiovascular: Reports chest pain, Heart tones S1 S2 present Capillary refill < 3 seconds Rhythm is junctional rhythm. Respiratory: Reports shortness of breath cough that is non-productive, persistent Airway is patent Trachea midline Respiratory effort is even, unlabored, Respiratory pattern is regular, symmetrical, Breath sounds are clear bilaterally. GI: No signs and/or symptoms were reported involving the gastrointestinal system. : No signs and/or symptoms were reported regarding the genitourinary system. EENT: No signs and/or symptoms were reported regarding the EENT system. Derm: No signs and/or symptoms reported regarding the dermatologic system. Skin is intact, is healthy with good turgor, Skin is pink, warm \T\ dry. Musculoskeletal: No signs and/or symptoms reported regarding the musculoskeletal system. Circulation, motion, and sensation intact. Capillary refill < 3 seconds, Range of motion: intact in all extremities. 13:31 Reassessment: Patient appears in no apparent distress at this time. No changes from kc6 previously documented assessment. Patient and/or family updated on plan of care and expected duration. Pain level reassessed. Patient is alert, oriented x 3, equal unlabored respirations, skin warm/dry/pink. 14:38 Reassessment: Patient appears in no apparent distress at this time. No changes from kc6 previously documented assessment. Patient and/or family updated on plan of care and expected duration. Pain level reassessed. Patient is alert, oriented x 3, equal unlabored respirations, skin warm/dry/pink. 15:39 Reassessment: Patient appears in no apparent distress at this time. No changes from kc6 previously documented assessment. Patient and/or family updated on plan of care and expected duration. Pain level reassessed. Patient is alert, oriented x 3, equal unlabored respirations, skin warm/dry/pink. Vital Signs: 11:58 BP 176 / 60; Pulse 66; Resp 12; Temp 97.1; Pulse Ox 100% ; Weight 84.82 kg; Height 5 cm10 ft. 5 in. ; Pain 7/10; 13:41 BP 175 / 70; Pulse 64; Resp 16 S; Pulse Ox 100% on R/A; kc6 14:38 BP 166 / 62; Pulse 68; Resp 16 S; Pulse Ox 100% on R/A; kc6 15:39 Pulse 67; Resp 18 S; Pulse Ox 98% on R/A; kc6 11:58 Body Mass Index 31.12 (84.82 kg, 165.1 cm) cm10 11:58 Pain Scale: Adult cm10 ED Course: 11:34 Patient arrived in ED. rg4 11:42 Lalo Regalado MD is Attending Physician. kdr 11:50 eWndi Zarate, JORGE is Primary Nurse. kc6 11:59 Triage completed. cm10 12:00 Arm band placed on Patient placed in an exam room, on a stretcher, on playground monitor, cm10 on pulse oximetry. 12:33 Missed attempt(s): 22 gauge in right antecubital area. Missed attempt(s): 20 gauge in kc6 left forearm. Inserted saline lock: 22 gauge in left hand, using aseptic technique. Blood collected. Patient maintains SpO2 saturation greater than 95% on room air. 12:34 Patient has correct armband on for positive identification. Placed in gown. Bed in low kc6 position. Call light in reach. Side rails up X2. Adult w/ patient. Client placed on continuous cardiac and pulse oximetry monitoring. NIBP monitoring applied. school bus monitor on. 12:38 XRAY Chest (1 view) In Process Unspecified. EDMS 16:14 No provider procedures requiring assistance completed. IV discontinued, intact, kc6 bleeding controlled, No redness/swelling at site. Pressure dressing applied. Administered Medications: 13:40 Drug: Levalbuterol Inhalation 1.25 mg Inhalation once Route: Inhalation; kc6 14:14 Follow up: Response: No adverse reaction kc6 13:40 Drug: Promethazine IVP 12.5 mg IVP once Route: IVP; Site: left hand; kc6 14:14 Follow up: Response: No adverse reaction kc6 Medication: 16:14 VIS not applicable for this client. kc6 Outcome: 15:51 Discharge ordered by . kdr 16:14 Discharged to home ambulatory, with significant other, kc6 16:14 Condition: good 16:14 Discharge instructions given to patient, significant other, Instructed on discharge instructions, follow up and referral plans. medication usage, Demonstrated understanding of instructions, follow-up care, medications, Prescriptions given X 2, 16:14 Patient left the ED. kc6 Signatures: Dispatcher [employer] EDMS Lalo Regalado MD MD kdr Garcia, Rubi rg4 Wendi Zarate RN RN kc6 Veronica Tinajero RN RN cm10
[2023-08-19 16:21] VITALS: TEMP 97.1
[2023-08-19 16:41] VITALS: BP 166/62; O2SAT 98
--- NOTE | 2023-08-21 14:34 | EKG ---
Test Date: 2023-08-19 Test Time: 12:15:02 Ethernet Network Architect: ADALID MEASUREMENT RESULTS: Intervals: Rate: 61 AL: QRSD: 68 QT: 434 QTc: 436 [place]: P: AL: QRS: 33 T: 36 INTERPRETIVE STATEMENTS: Junctional rhythm Nonspecific ST abnormality Abnormal ECG Compared to ECG 05/09/2022 12:21:17 Junctional rhythm now present ST (T wave) deviation now present Sinus rhythm no longer present Electronically Signed On 08-21-23 14:28:34 SANDWICH MAKER by Yasmani Raza
== END ==
LOC: ER 11:32
DX: J20.9 Acute bronchitis, unspecified (principal); R05.9 Cough, unspecified; B34.8 Other viral infections of unspecified site; E11.9 Type 2 diabetes mellitus without complications; I10 Essential (primary) hypertension; Z95.818 Presence of other cardiac implants and grafts; Z88.5 Allergy status to narcotic agent
CPT/HCPCS: 93005; 85025; 80048; 36415; 82947; 84484 ×2; 71045; J2550; J7614; 96374; 99285